=== PATIENT | male | born 1945 | race Caucasian/White ===

== ENCOUNTER 2017-07-24 13:19 | Emergency (ER) | payer MEDICARE, BC ==
[~2017-07-24 13:19] MED LIST: HYDROmorphone 2 MG/ML Syringe IM ONE
[2017-07-24] MEDS ORDERED: Cephalexin 500 MG Cap ONE (13:30)
--- NOTE | 2017-07-24 14:56 | EDM.PDOC ---
ED HPI GENERAL MEDICAL PROBLEM - General Chief Complaint: General Stated Complaint: PAIN Time Seen by Provider: 07/24/17 14:00 Source of Information: Reports: Patient History Limitations: Reports: No Limitations - History of Present Illness INITIAL COMMENTS - FREE TEXT/NARRATIVE: According to , who is his manager wound care. Pt has has chronic wounds on the legs for several years now. His has been doing dressing at Home for him. He has been on fentanyl 50mcg, vicodin , and oxycodone for it. He has been c/o worsening pain today. claims he is out of his hydrocodone, but he claims he has enough till wednesday. Pain, he describes is worse with touch. Also pain is sharp and shooting type. No fever or chills. There is swelling of the legs. No cough, wheezing. no increased drainage form the wound. No nausea or vomiting. wants his Blood sugar checked, as he does not get it checked at home. bilateral legs Pain Score (Numeric/FACES): 8 - Related Data Allergies Allergy/AdvReac Type Severity Reaction Status Date / Time lisinopril AdvReac Cannot Verified 07/24/17 14:52 Remember naproxen AdvReac Cannot Verified 07/24/17 14:52 Remember Home Meds: Home Meds metFORMIN HCl [Metformin HCl ER] 500 mg PO DAILY 12/18/13 [History] ED ROS GENERAL - Review of Systems Review Of Systems: See Below Constitutional: Denies: Fever, Chills, Weakness, Fatigue HEENT: Denies: Rhinitis, Throat Pain, Throat Swelling Respiratory: Denies: Shortness of Breath, Cough, Sputum Cardiovascular: Denies: Chest Pain, Lightheadedness GI/Abdominal: Denies: Abdominal Pain, Nausea, Vomiting : Denies: Dysuria, Flank Pain Musculoskeletal: Reports: Leg Pain, Foot Pain. Denies: Joint Pain, Joint Swelling Skin: Reports: Wound. Denies: Bruising, Pruritis, Rash Neurological: Denies: Dizziness, Headache, Seizure, Syncope ED EXAM, GENERAL - Physical Exam Exam: See Below Exam Limited By: No Limitations General Appearance: Alert, WD/WN, No Apparent Distress, Other (upset, does not want to answer questions. tell's me to ask my nurse she knows it all.) Eye Exam: Bilateral Eye: EOMI, PERRL Ears: Normal External Exam, Normal Canal, Hearing Grossly Normal, Normal TMs Nose: Normal Inspection, Normal Mucosa, No Blood Throat/Mouth: Normal Inspection, Normal Lips, Normal Teeth, Normal Gums, Normal Oropharynx, Normal Voice, No Airway Compromise Head: Atraumatic, Normocephalic Neck: Normal Inspection, Supple, Non-Tender, Full Range of Motion Respiratory/Chest: No Respiratory Distress, Lungs Clear, Normal Breath Sounds, No Accessory Muscle Use, Chest Non-Tender Cardiovascular: Normal Peripheral Pulses, Regular Rate, Rhythm, No Edema, No Gallop, No JVD, No Murmur, No Rub Neurological: Alert, Oriented, CN II-XII Intact Skin Exam: Warm, Intact, Other (Right lower extremity: the wound dressings were opened by me. Therre are 2 small less than 1 cm irregular wound over the medial aspect of the 2nd toe and 3rd toe lateral aspect. Also there is a large approximartely 8cm by 6cm irregular chronic wound over the medail aspect of the ankle. The wound is chronic with undermined edges. There is minimal discharge around the wound. There is swelling of the legs. Pt refused to have his left leg examined by me as it has been hurting.) Course - Vital Signs Text/Narrative:: Pt has chronic wounds of the feet and leg. The wound over the right foot has mild clear to yellow discharge.This looks like superficial skin infection. Also there is chronic swelling of the legs with lymphedema. his vitals are stable. I did order CBC and Blood sugar. His blood sugar is 106.CBC shows white count of 2.8 with normal differential The wounds were redressed with xeroform and telfa. Pt appears to have neuropathic pain, as even touching the skin on the leg hurts, and he gets shooting pain. He is on Fentanyl Oxycodone, Hydrocodone. But only take 100mg of gabapentin TID. His pain is neuropathic in nature and presentation. I am increasing his gabapentin to 300mng 3 times daily. Started him on Keflex 500mg 4 times daily. advised elevation of the legs and followup with Dr. KHAN on wednesday. I have recommended patient to be followed up by wound cre specialist too, as he has chronic non-healing wounds. Pt's says he does not wants to travel to see a specialist. Last Recorded V/S: Last Vital Signs Temp 99.9 F 07/24/17 14:59 Pulse 74 07/24/17 14:59 Resp BP 122/61 07/24/17 14:59 Pulse Ox 100 07/24/17 14:59 - Orders/Labs/Meds Orders: Active Orders 24 hr Category Date Time Status Blood Glucose Check, Bedside [RC] ONETIME Care 07/24/17 14:42 Active Labs: Laboratory Tests 07/24/17 07/24/17 Range/Units 14:11 14:40 WBC 2.9 L D (4.0-11.0) K/uL RBC 2.69 L (4.50-6.50) M/uL Hgb 10.0 L (13.0-18.0) g/dL Hct 28.5 L D (40.0-54.0) % MCV 106 H (76-96) fL MCH 37.2 H (27.0-32.0) pg MCHC 35.1 H (31.0-35.0) g/dL RDW 17.0 H (11.0-16.0) % Plt Count 82 L D (150-400) K/uL MPV 9.6 (6.0-10.0) fL Neut % (Auto) 51.5 (45.0-70.0) % Lymph % (Auto) 10.2 L (20.0-40.0) % [place] % (Auto) 31.6 H (3.0-10.0) % Eos % (Auto) 4.9 (1.0-5.0) % Baso % (Auto) 1.8 H (0.0-0.5) % Neut # (Auto) 1.47 L (2.00-7.50) K/uL Lymph # (Auto) 0.29 L (1.50-4.00) K/uL [place] # (Auto) 0.90 H (0.20-0.80) K/uL Eos # (Auto) 0.14 (0.04-0.40) K/uL Baso # (Auto) 0.05 (0.02-0.10) K/uL POC Glucose 106 (74-110) mg/dL Meds: Medications Discontinued Medications Generic Name Dose Route Start Last Admin Trade Name Freq PRN Reason Stop Dose Admin Hydromorphone HCl 2 mg 07/24/17 03:00 07/24/17 15:20 Dilaudid IM 07/24/17 03:01 2 mg ONETIME ONE Administration Departure - Departure Time of Disposition: 15:40 Disposition: Home, Self-Care 01 Condition: Good Clinical Impression: Chronic wound of extremity - Discharge Information Instructions: Venous Ulcer, Venous Stasis or Chronic Venous Insufficiency Forms: ED Department Discharge Additional Instructions: Increase the Gabapentin 300 mg 3 times a day. Keflex is to be taken 500mg 4 times a day. Be seen in the clinic on Wednesday for a home health referral and the wound referral. - Problem List & Annotations (1) Chronic wound of extremity SNOMED Code(s): 177364030 Code(s): [id number] - Status: Acute - Problem List Review Problem List Initiated/Reviewed/Updated: Yes - My Orders Last 24 Hours: My Active Orders 07/24/17 14:42 Blood Glucose Check, Bedside [RC] ONETIME - Assessment/Plan Last 24 Hours: My Active Orders 07/24/17 14:42 Blood Glucose Check, Bedside [RC] ONETIME Assessment:: Chronic leg wound with superficial infection Plan: Pt has chronic wounds of the feet and leg. The wound over the right foot has mild clear to yellow discharge.This looks like superficial skin infection. Also there is chronic swelling of the legs with lymphedema. his vitals are stable. I did order CBC and Blood sugar. His blood sugar is 106.CBC shows white count of 2.8 with normal differential The wounds were redressed with xeroform and telfa. Pt appears to have neuropathic pain, as even touching the skin on the leg hurts, and he gets shooting pain. He is on Fentanyl Oxycodone, Hydrocodone. But only take 100mg of gabapentin TID. His pain is neuropathic in nature and presentation. I am increasing his gabapentin to 300mng 3 times daily. Started him on Keflex 500mg 4 times daily. advised elevation of the legs and followup with Dr. KHAN on wednesday. I have recommended patient to be followed up by wound cre specialist too, as he has chronic non-healing wounds. Pt's says he does not wants to travel to see a specialist.
[2017-07-24 15:03] VITALS: BP 122/61
== END 2017-07-24 15:42 | disposition home or self-care (01) ==
LOC: LB.ED 13:19
DX: S90.934D Unspecified superficial injury of right lesser toe(s), subsequent encounter (principal); S90.911D Unspecified superficial injury of right ankle, subsequent encounter; Z88.8 Allergy status to other drugs, medicaments and biological substances; X58.XXXD Exposure to other specified factors, subsequent encounter; E11.9 Type 2 diabetes mellitus without complications
CPT/HCPCS: 36415; 82962; 83036; 85025; 96372; 99283; A9270; J1170

== ENCOUNTER 2017-08-03 08:36 | Inpatient (IN) | payer MEDICARE, BC ==
[2017-08-03] MEDS: Albuterol/Ipratropium 3.0-0.5 MG/3 ML Neb Soln NEB SCH ×3 (09:40→20:10)
--- NOTE | 2017-08-03 09:49 | EDM.PDOC ---
ED HPI GENERAL MEDICAL PROBLEM - General Chief Complaint: General Stated Complaint: pain Time Seen by Provider: 08/03/17 09:30 Source of Information: Reports: Family, RN History Limitations: Reports: Altered Mental Status, Physical Impairment - History of Present Illness INITIAL COMMENTS - FREE TEXT/NARRATIVE: 72 yr male presents via ambulance. Family states he has been sick for a few days and had confusion this am. states he didn't take any pain medicine yesterday. States temperature over the last couple days and long standing, chronic wounds to lower legs. Waiting to have care management specialist evaluation of wounds and then order for homecare services. Pt has been too weak to transport by personal vehicle to [place] for this appointment. Location: Reports: Lower Extremity, Left, Lower Extremity, Right Severity: Severe Improves with: Reports: Medication Worsens with: Reports: Movement Associated Symptoms: Reports: Confusion, Fever/Chills, Weakness Treatments FACILITIES COORDINATOR: Reports: Other Medication(s) bilateral legs Pain Score (Numeric/FACES): 8 - Related Data Allergies Allergy/AdvReac Type Severity Reaction Status Date / Time lisinopril AdvReac Cannot Verified 08/03/17 09:10 Remember naproxen AdvReac Cannot Verified 08/03/17 09:10 Remember Home Meds: Home Meds metFORMIN HCl [Metformin HCl ER] 500 mg PO DAILY 12/18/13 [History] Acetaminophen 325 mg PO ASDIRECTED PRN 08/03/17 [History] Acetaminophen/HYDROcodone [[place] 325-5 MG] 1 tab PO Q4H PRN 08/03/17 [History] Acetaminophen/oxyCODONE [Percocet 325-5 MG] 1 each PO Q4H PRN 08/03/17 [History] Clopidogrel [Plavix] 75 mg PO DAILY 08/03/17 [History] Docusate Sodium/Sennosides [Senna Plus] 1 each PO DAILY PRN 08/03/17 [History] Folic Acid 1 mg PO DAILY 08/03/17 [History] Gabapentin [Neurontin] 300 mg PO TID 08/03/17 [History] Ipratropium/Albuterol Sulfate [Iprat-Albut 0.5-3(2.5) MG/3 ML] 3 ml IH Q4H PRN 08/03/17 [History] Methotrexate 2.5 mg PO Q7D 08/03/17 [History] Metoprolol Succinate [Toprol XL] 25 mg PO DAILY 08/03/17 [History] Potassium Chloride 20 meq PO DAILY 08/03/17 [History] fentaNYL [Duragesic] 50 mcg TD ASDIRECTED 08/03/17 [History] traMADol [Ultram] 50 mg PO Q4H PRN 08/03/17 [History] traZODone 50 mg PO BEDTIME 08/03/17 [History] Past Medical History Cardiovascular History: Reports: Hypertension Dermatologic History: Reports: Decubitus Ulcer, Venous Stasis Dermatitis ED ROS GENERAL - Review of Systems Review Of Systems: See Below Constitutional: Reports: Fever, Chills, Weakness HEENT: Reports: Other (swelling to right eyelid) Respiratory: Reports: Shortness of Breath Cardiovascular: Reports: No Symptoms Endocrine: Reports: Other (hx diabetes) GI/Abdominal: Reports: No Symptoms Musculoskeletal: Reports: Other (hx of RA) Skin: Reports: Wound, Other (multiple chronic open areas to legs, bilaterally) Neurological: Reports: Confusion, Difficulty Walking, Weakness ED EXAM, GENERAL - Physical Exam Exam: See Below Exam Limited By: Altered Mental Status General Appearance: Alert, No Apparent Distress, Lethargic Eye Exam: Right Eye: Other (swelling to right upper eyelid) Throat/Mouth: Other (swelling to upper lip) Head: Atraumatic, Normocephalic Neck: Normal Inspection, Supple, Non-Tender Respiratory/Chest: No Respiratory Distress, Lungs Clear, Decreased Breath Sounds Cardiovascular: Regular Rate, Rhythm GI/Abdominal: Normal Bowel Sounds, Soft, Non-Tender Back Exam: Normal Inspection Extremities: Pedal Edema, Other (lower legs covered with dressings, dressing is dry and intact.) Neurological: Alert, Confused, Disoriented Skin Exam: Warm, Dry Lymphatic: No Adenopathy Course - Vital Signs Last Recorded V/S: Last Vital Signs Temp 101.0 F H 08/03/17 09:18 Pulse 68 08/03/17 15:47 Resp 20 08/03/17 09:18 BP 87/46 L 08/03/17 15:47 Pulse Ox 96 08/03/17 15:47 - Orders/Labs/Meds Orders: Active Orders 24 hr Category Date Time Status RT Aerosol Therapy [RC] ASDIRECTED Care 08/03/17 10:43 Active CULTURE BLOOD [BC] Stat Lab 08/03/17 11:10 Received CULTURE BLOOD [BC] Stat Lab 08/03/17 11:20 Received Albuterol/Ipratropium [DuoNeb 3.0-0.5 MG/3 ML] Med 08/03/17 10:43 Active 3 ml NEB Q4H PRN Azithromycin [Zithromax] 500 mg Med 08/03/17 11:30 Active Sodium Chloride 0.9% [Normal Saline] 250 ml IV Q24H Sodium Chloride 0.9% [Normal Saline] 1,000 ml Med 08/03/17 10:00 Active IV ASDIRECTED Medication Orders Acetaminophen (Tylenol) 325 mg PO ASDIRECTED PRN PRN Reason: Pain Albuterol/Ipratropium (Duoneb 3.0-0.5 Mg/3 Ml) 3 ml NEB Q4H PRN PRN Reason: Wheezing Stop: 08/03/17 18:00 Last Admin: 08/03/17 09:45 Dose: 3 ml Albuterol/Ipratropium (Duoneb 3.0-0.5 Mg/3 Ml) 3 ml NEB Q4H [facility] Last Admin: 08/03/17 09:40 Dose: 3 ml Clopidogrel Bisulfate (Plavix) 75 mg PO DAILY [facility] Fentanyl (Duragesic) 50 mcg TRDERM Q72H [facility] Folic Acid (Folic Acid) 1 mg PO DAILY [facility] Gabapentin (Neurontin) 300 mg PO TID [facility] Last Admin: 08/03/17 13:50 Dose: 300 mg Sodium Chloride (Normal Saline) 1,000 mls @ 100 mls/hr IV ASDIRECTED AZUL Stop: 08/03/17 18:00 Last Admin: 08/03/17 09:59 Dose: 100 mls/hr Azithromycin 500 mg/ Sodium (Chloride) 250 mls @ 250 mls/hr IV Q24H [facility] Last Admin: 08/03/17 12:21 Dose: 250 mls/hr Ceftriaxone Sodium 1 gm/ (Sodium Chloride) 50 mls @ 100 mls/hr IV Q24H [facility] Last Admin: 08/03/17 13:48 Dose: 100 mls/hr Metformin HCl (Glucophage Xr) 500 mg PO DAILY [facility] Metoprolol Succinate (Toprol Xl) 25 mg PO DAILY [facility] Nicotine (Habitrol) 21 mg TRDERM DAILY [facility] Oxycodone/Acetaminophen (Percocet 325-5 Mg) 1 tab PO Q4H PRN PRN Reason: Pain Last Admin: 08/03/17 12:30 Dose: 1 tab Potassium Chloride (Klor-Con M20) 20 meq PO DAILY AZUL Senna/Docusate Sodium (Senna Plus) 1 tab PO DAILY PRN PRN Reason: Constipation Tramadol HCl (Ultram) 50 mg PO Q4H PRN PRN Reason: Pain Trazodone HCl (Trazodone) 50 mg PO BEDTIME AZUL Labs: Laboratory Tests 08/03/17 08/03/17 08/03/17 Range/Units 09:30 09:35 09:35 WBC 5.7 D (4.0-11.0) K/uL RBC 2.97 L (4.50-6.50) M/uL Hgb 11.1 L (13.0-18.0) g/dL Hct 32.0 L (40.0-54.0) % MCV 108 H (76-96) fL MCH 37.4 H (27.0-32.0) pg MCHC 34.7 (31.0-35.0) g/dL RDW 17.8 H (11.0-16.0) % Plt Count 118 L D (150-400) K/uL MPV 10.0 (6.0-10.0) fL Neut % (Auto) 74.9 H (45.0-70.0) % Lymph % (Auto) 6.9 L (20.0-40.0) % [place] % (Auto) 17.1 H (3.0-10.0) % Eos % (Auto) 0.2 L (1.0-5.0) % Baso % (Auto) 0.9 H (0.0-0.5) % Neut # (Auto) 4.24 (2.00-7.50) K/uL Lymph # (Auto) 0.39 L (1.50-4.00) K/uL [place] # (Auto) 0.97 H (0.20-0.80) K/uL Eos # (Auto) 0.01 L (0.04-0.40) K/uL Baso # (Auto) 0.05 (0.02-0.10) K/uL Sodium 137 (136-145) mmol/L Potassium 4.4 (3.5-5.1) mmol/L Chloride 101 (98-107) mmol/L Carbon Dioxide 31.4 (21.0-32.0) mmol/L Anion Gap 9.0 (5.0-15.0) mmol/L BUN 20 (8-26) mg/dL Creatinine 1.29 D (0.70-1.30) mg/dL Est Cr Clr Drug Dosing TNP Estimated GFR (MDRD) 55 L (>60) MLS/MIN BUN/Creatinine Ratio 15.5 (6-25) Glucose 115 H (74-100) mg/dL Lactic Acid 2.25 H (0.90-1.70) mmol/L Calcium 10.5 H D (8.5-10.1) mg/dL Total Bilirubin 1.7 H D (0.0-1.0) mg/dL AST 138 H (15-37) U/L ALT 38 (12-78) U/L Alkaline Phosphatase 173 H (46-116) U/L Total Protein 6.8 (6.4-8.2) g/dL Albumin 2.3 L (3.4-5.0) g/dL Globulin 4.5 H (2.2-4.2) g/dL Albumin/Globulin Ratio 0.5 L (0.8-2.0) Meds: Medications Generic Name Dose Route Start Last Admin Trade Name Freq PRN Reason Stop Dose Admin Acetaminophen 325 mg 08/03/17 11:42 Tylenol PO ASDIRECTED PRN Pain Albuterol/Ipratropium 3 ml 08/03/17 10:43 08/03/17 09:45 Duoneb 3.0-0.5 Mg/3 Ml NEB 08/03/17 18:00 3 ml Q4H PRN Administration Wheezing Albuterol/Ipratropium 3 ml 08/03/17 11:45 08/03/17 09:40 Duoneb 3.0-0.5 Mg/3 Ml NEB 3 ml Q4H AZUL Administration Clopidogrel Bisulfate 75 mg 08/04/17 08:00 Plavix PO DAILY AZUL Fentanyl 50 mcg 08/05/17 08:00 Duragesic TRDERM Q72H AZUL Folic Acid 1 mg 08/04/17 08:00 Folic Acid PO DAILY AZUL Gabapentin 300 mg 08/03/17 14:00 08/03/17 13:50 Neurontin PO 300 mg TID AZUL Administration Sodium Chloride 1,000 mls @ 100 mls/hr 08/03/17 10:00 08/03/17 09:59 Normal Saline IV 08/03/17 18:00 100 mls/hr ASDIRECTED AZUL Administration Azithromycin 500 mg/ Sodium 250 mls @ 250 mls/hr 08/03/17 11:30 08/03/17 12: 21 Chloride IV 250 mls/hr Q24H AZUL Administration Ceftriaxone Sodium 1 gm/ 50 mls @ 100 mls/hr 08/03/17 12:00 08/03/17 13:48 Sodium Chloride IV 100 mls/hr Q24H AZUL Administration Metformin HCl 500 mg 08/04/17 08:00 Glucophage Xr PO DAILY [facility] Metoprolol Succinate 25 mg 08/04/17 08:00 Toprol Xl PO DAILY [facility] Nicotine 21 mg 08/04/17 08:00 Habitrol TRDERM DAILY [facility] Oxycodone/Acetaminophen 1 tab 08/03/17 12:54 08/03/17 12:30 Percocet 325-5 Mg PO 1 tab Q4H PRN Administration Pain Potassium Chloride 20 meq 08/04/17 08:00 Klor-Con M20 PO DAILY AZUL Senna/Docusate Sodium 1 tab 08/03/17 11:42 Senna Plus PO DAILY PRN Constipation Tramadol HCl 50 mg 08/03/17 11:42 Ultram PO Q4H PRN Pain Trazodone HCl 50 mg 08/03/17 20:00 Trazodone PO BEDTIME [facility] Discontinued Medications Generic Name Dose Route Start Last Admin Trade Name Freq PRN Reason Stop Dose Admin Hydromorphone HCl 2 mg 08/03/17 14:19 08/03/17 14:33 Dilaudid IVPUSH 08/03/17 14:20 2 mg ONETIME ONE Administration Oxycodone/Acetaminophen 1 tab 08/03/17 11:45 Percocet 325-5 Mg PO Q4H [facility] Departure - Departure Time of Disposition: 13:35 Disposition: Admitted As Inpatient 66 Clinical Impression: Pneumonia, Chronic wound of extremity - Discharge Information - Problem List & Annotations (1) Pneumonia SNOMED Code(s): 794577102 Code(s): J18.9 - PNEUMONIA, UNSPECIFIED ORGANISM Status: Acute Priority: High Current Visit: Yes Onset Date: 08/03/17 (2) Chronic wound of extremity SNOMED Code(s): 610051715 Code(s): VQC5913 - Status: Acute Priority: High Current Visit: Yes - Problem List Review Problem List Initiated/Reviewed/Updated: Yes - My Orders Last 24 Hours: My Active Orders 08/03/17 10:00 Sodium Chloride 0.9% [Normal Saline] 1,000 ml IV ASDIRECTED 08/03/17 10:43 RT Aerosol Therapy [RC] ASDIRECTED Albuterol/Ipratropium [DuoNeb 3.0-0.5 MG/3 ML] 3 ml NEB Q4H PRN 08/03/17 11:10 CULTURE BLOOD [BC] Stat 08/03/17 11:20 CULTURE BLOOD [BC] Stat 08/03/17 11:30 Azithromycin [Zithromax] 500 mg Sodium Chloride 0.9% [Normal Saline] 250 ml IV Q24H - Assessment/Plan Last 24 Hours: My Active Orders 08/03/17 10:00 Sodium Chloride 0.9% [Normal Saline] 1,000 ml IV ASDIRECTED 08/03/17 10:43 RT Aerosol Therapy [RC] ASDIRECTED Albuterol/Ipratropium [DuoNeb 3.0-0.5 MG/3 ML] 3 ml NEB Q4H PRN 08/03/17 11:10 CULTURE BLOOD [BC] Stat 08/03/17 11:20 CULTURE BLOOD [BC] Stat 08/03/17 11:30 Azithromycin [Zithromax] 500 mg Sodium Chloride 0.9% [Normal Saline] 250 ml IV Q24H Plan: 08-03-2017 Admit to inpatient with pneumonia. Azithromycin and Rocephin IV daily , IV fluids @ 100cc/hr, heart healthy diet as tolerated. Assist with bathroom privileges. Daily dressing change to chronic wounds to lower legs. Chest x- ray completed, will follow-up with CT for mass to right upper lobe.
[2017-08-03] MEDS ORDERED: Sodium Chloride 0.9% 1,000 ML IV SCH (10:00)
[2017-08-03] MEDS ORDERED: Albuterol/Ipratropium 3.0-0.5 MG/3 ML Neb Soln NEB PRN (10:43)
--- NOTE | 2017-08-03 11:09 | CR ---
DATE OF SERVICE: 08/03/2017 CLINICAL DATA: R/O pneumonia. AP PORTABLE CHEST Comparison is made to a prior exam dated 01/09/2016. Patient has taken a poor inspiration. The heart size is within normal limits. The aorta is calcified and ectatic. There is a 3.1 cm oval-shaped mass-like density within the right upper lung. It was not present on the prior exam. There is increased density in the left lung base with mild eventration of the left hemidiaphragm consistent with basilar atelectasis. Pneumonia should be considered. The exam is otherwise unchanged from the prior. IMPRESSION: 1. Right upper lobe mass as discussed above. Chest CT is recommended. 2. Increased density left lung base with eventration of left hemidiaphragm consistent with basilar atelectasis. Pneumonia should be considered. [id number] MTDD
[2017-08-03] MEDS ORDERED: Acetaminophen 325 MG Tab PO PRN (11:42)
[2017-08-03] MEDS ORDERED: Acetaminophen/oxyCODONE 325-5 MG Tab PO SCH (11:45)
[2017-08-03] MEDS: Azithromycin 500 MG in Sodium Chloride 0.9% 250 ML IV SCH (12:21)
[2017-08-03] MEDS: Acetaminophen/oxyCODONE 325-5 MG Tab PO PRN (12:30)
[2017-08-03] MEDS: cefTRIAXone 1 GM in Sodium Chloride 0.9% 50 ML IV SCH (13:48)
[2017-08-03] MEDS: Gabapentin 300 MG Cap PO SCH ×2 (13:50→20:11)
[2017-08-03] MEDS ORDERED: HYDROmorphone 2 MG/ML Syringe IVPUSH ONE (14:19)
--- NOTE | 2017-08-03 17:24 | PCM.SN ---
- Free Text/Narrative Note: 08-03-17 1700 Results of Chest x-ray reviewed with . Mass 3.1cm noted to right upper lobe, that wasn't present on previous exam. Will CT in am. Reviewed lab results. CBC normal. Pt has been taking Keflex at home for leg ulcers. states pt has been losing weight and more confused lately with weakness and unable to get out of bed without assist. Continue with IV fluids through the night, CBC and CMP in am. Continue with IV antibiotic for pneumonia. Blood cultures pending. UA negative for UTI. states pt hasn' t had an appointment with the icu specialist in [place], as he has been too weak to tolerate transportation. Daily dressing changes to lower legs with xeroform dressing to wounds and Kerlix.
[2017-08-03] MEDS: traZODone 50 MG Tab PO SCH (20:11)
[2017-08-04] MEDS: Albuterol/Ipratropium 3.0-0.5 MG/3 ML Neb Soln NEB SCH ×6 (00:01→20:25)
[2017-08-04] MEDS: Acetaminophen/oxyCODONE 325-5 MG Tab PO PRN ×3 (05:02→17:43)
[2017-08-04] MEDS: Metoprolol Succinate 25 MG Tab.ER PO SCH (07:27)
[2017-08-04] MEDS: Folic Acid 1 MG Tab PO SCH (07:28)
[2017-08-04] MEDS: traMADol 50 MG Tab PO PRN ×2 (07:28→20:23)
[2017-08-04] MEDS: metFORMIN 500 MG Tab.ER PO SCH (07:28)
[2017-08-04] MEDS: Potassium Chloride 20 MEQ Tab.ER PO SCH (07:28)
[2017-08-04] MEDS: Gabapentin 300 MG Cap PO SCH ×3 (07:28→20:25)
[2017-08-04] MEDS: Nicotine 21 MG/24 Hr Patch TRDERM SCH (07:28)
[2017-08-04] MEDS: Clopidogrel 75 MG Tab PO SCH (07:30)
[2017-08-04] MEDS ORDERED: metFORMIN 500 MG Tab PO SCH (08:00)
[2017-08-04] MEDS ORDERED: Non-Formulary Medication 1 Each (Metformin Hcl [Metformin Hcl Er] 500 MG) PO SCH (08:00)
[2017-08-04] MEDS ORDERED: Non-Formulary Medication 1 Each (Potassium Chloride [Potassium Chloride] 20 MEQ) PO SCH (08:00)
--- NOTE | 2017-08-04 09:45 | PCM.PN ---
- General Info Date of Service: 08/04/17 Admission Dx/Problem (Free Text): Pneumonia Subjective Update: 72 yr male with pneumonia. States he is feeling better and wants to go home. States he is upset his isn't here this am. States he rests better at home and can sit in his own chair at home and be more comfortable. Functional Status: Reports: Pain Controlled, Tolerating Diet - Review of Systems General: Reports: Weakness Pulmonary: Reports: Shortness of Breath Musculoskeletal: Reports: Leg Pain - Patient Data Vitals - Most Recent: Last Vital Signs Temp 98.7 F 08/04/17 07:53 Pulse 78 08/04/17 07:53 Resp 14 08/04/17 07:53 BP 102/91 H 08/04/17 07:53 Pulse Ox 92 L 08/04/17 07:53 Weight - Most Recent: 200 lb 12.8 oz I&O - Last 24 Hours: Intake & Output 08/03/17 08/04/17 08/04/17 22:59 06:59 14:59 Intake Total 1400 Output Total 500 Balance 900 Lab Results Last 24 Hours: Laboratory Results - last 24 hr 08/03/17 08/04/17 08/04/17 Range/Units 11:55 07:05 07:05 WBC 3.3 L D (4.0-11.0) K/uL RBC 2.35 L (4.50-6.50) M/uL Hgb 8.7 L D (13.0-18.0) g/dL Hct 25.1 L D (40.0-54.0) % MCV 107 H (76-96) fL MCH 37.0 H (27.0-32.0) pg MCHC 34.7 (31.0-35.0) g/dL RDW 17.4 H (11.0-16.0) % Plt Count 98 L (150-400) K/uL MPV 10.0 (6.0-10.0) fL Neut % (Auto) 65.1 (45.0-70.0) % Lymph % (Auto) 9.0 L (20.0-40.0) % Burnett % (Auto) 23.5 H (3.0-10.0) % Eos % (Auto) 1.5 (1.0-5.0) % Baso % (Auto) 0.9 H (0.0-0.5) % Neut # (Auto) 2.16 (2.00-7.50) K/uL Lymph # (Auto) 0.30 L (1.50-4.00) K/uL Burnett # (Auto) 0.78 (0.20-0.80) K/uL Eos # (Auto) 0.05 (0.04-0.40) K/uL Baso # (Auto) 0.03 (0.02-0.10) K/uL Sodium 137 (136-145) mmol/L Potassium 3.8 (3.5-5.1) mmol/L Chloride 103 (98-107) mmol/L Carbon Dioxide 28.3 (21.0-32.0) mmol/L Anion Gap 9.5 (5.0-15.0) mmol/L BUN 22 (8-26) mg/dL Creatinine 1.14 (0.70-1.30) mg/dL Est Cr Clr Drug Dosing 60.48 mL/min Estimated GFR (MDRD) > 60 (>60) MLS/MIN BUN/Creatinine Ratio 19.3 (6-25) Glucose 103 H (74-100) mg/dL Calcium 9.3 (8.5-10.1) mg/dL Total Bilirubin 0.8 D (0.0-1.0) mg/dL AST 121 H (15-37) U/L ALT 34 (12-78) U/L Alkaline Phosphatase 112 (46-116) U/L Total Protein 5.3 L (6.4-8.2) g/dL Albumin 1.7 L (3.4-5.0) g/dL Globulin 3.6 (2.2-4.2) g/dL Albumin/Globulin Ratio 0.5 L (0.8-2.0) Urine Color Yellow Urine Appearance Clear (CLEAR) Urine pH 6.0 (5.0-8.0) Ur Specific Theodore 1.020 (1.003-1.030) Urine Protein Negative (NEGATIVE) mg/dL Urine Glucose (UA) Negative (NEGATIVE) mg/dL Urine Ketones Negative (NEGATIVE) mg/dL Urine Occult Blood Negative (NEGATIVE) Urine Nitrite Negative (NEGATIVE) Urine Bilirubin Negative (NEGATIVE) Urine Urobilinogen 2.0 H (0.2-1.0) E.U./dL Ur Leukocyte Esterase Negative (NEGATIVE) Urine RBC Not seen /HPF Urine WBC Not seen /HPF Ur Squamous Epith Cells Occasional /HPF Urine Bacteria Not seen /HPF Med Orders - Current: Current Medications Acetaminophen (Tylenol) 325 mg PO ASDIRECTED PRN PRN Reason: Pain Albuterol/Ipratropium (Duoneb 3.0-0.5 Mg/3 Ml) 3 ml NEB Q4H [facility] Last Admin: 08/04/17 07:28 Dose: 3 ml Clopidogrel Bisulfate (Plavix) 75 mg PO DAILY [facility] Fentanyl (Duragesic) 50 mcg TRDERM Q72H [facility] Ferrous Sulfate (Ferrous Sulfate) 325 mg PO BIDMEALS [facility] Folic Acid (Folic Acid) 1 mg PO DAILY [facility] Last Admin: 08/04/17 07:28 Dose: 1 mg Gabapentin (Neurontin) 300 mg PO TID [facility] Last Admin: 08/04/17 07:28 Dose: 300 mg Azithromycin 500 mg/ Sodium (Chloride) 250 mls @ 250 mls/hr IV Q24H [facility] Last Admin: 08/03/17 12:21 Dose: 250 mls/hr Ceftriaxone Sodium 1 gm/ (Sodium Chloride) 50 mls @ 100 mls/hr IV Q24H [facility] Last Admin: 08/03/17 13:48 Dose: 100 mls/hr Metformin HCl (Glucophage Xr) 500 mg PO DAILY [facility] Last Admin: 08/04/17 07:28 Dose: 500 mg Metoprolol Succinate (Toprol Xl) 25 mg PO DAILY [facility] Last Admin: 08/04/17 07:27 Dose: 25 mg Nicotine (Habitrol) 21 mg TRDERM DAILY [facility] Last Admin: 08/04/17 07:28 Dose: 21 mg Oxycodone/Acetaminophen (Percocet 325-5 Mg) 1 tab PO Q4H PRN PRN Reason: Pain Last Admin: 08/04/17 08:44 Dose: 1 tab Potassium Chloride (Klor-Con M20) 20 meq PO DAILY [facility] Last Admin: 08/04/17 07:28 Dose: 20 meq Senna/Docusate Sodium (Senna Plus) 1 tab PO DAILY PRN PRN Reason: Constipation Tramadol HCl (Ultram) 50 mg PO Q4H PRN PRN Reason: Pain Last Admin: 08/04/17 07:28 Dose: 50 mg Trazodone HCl (Trazodone) 50 mg PO BEDTIME [facility] Last Admin: 08/03/17 20:11 Dose: 50 mg Discontinued Medications Albuterol/Ipratropium (Duoneb 3.0-0.5 Mg/3 Ml) 3 ml NEB Q4H PRN PRN Reason: Wheezing Stop: 08/03/17 18:00 Last Admin: 08/03/17 09:45 Dose: 3 ml Hydromorphone HCl (Dilaudid) 2 mg IVPUSH ONETIME ONE Stop: 08/03/17 14:20 Last Admin: 08/03/17 14:33 Dose: 2 mg Sodium Chloride (Normal Saline) 1,000 mls @ 100 mls/hr IV ASDIRECTED [facility] Stop: 08/03/17 18:00 Last Admin: 08/03/17 09:59 Dose: 100 mls/hr Oxycodone/Acetaminophen (Percocet 325-5 Mg) 1 tab PO Q4H [facility] - Exam Quality Assessment: Supplemental Oxygen, Skin Breakdown General: Alert, Lethargic HEENT: Mucous Membr. Moist/[place] Neck: Supple, Trachea Midline Lungs: Normal Respiratory Effort, Decreased Breath Sounds Cardiovascular: Regular Rate Skin: Warm, Dry Psy/Mental Status: Alert, Other (angry with not stopping in and wants to go home) - Problem List & Annotations (1) Pneumonia SNOMED Code(s): 212418898 Code(s): J18.9 - PNEUMONIA, UNSPECIFIED ORGANISM Status: Acute Priority: High Current Visit: Yes Onset Date: 08/03/17 (2) Chronic wound of extremity SNOMED Code(s): 542170524 Code(s): UQE5560 - Status: Acute Priority: High Current Visit: Yes - Problem List Review Problem List Initiated/Reviewed/Updated: Yes - My Orders Last 24 Hours: My Active Orders 08/03/17 11:42 Acetaminophen [Tylenol] 325 mg PO ASDIRECTED PRN Docusate Sodium/Sennosides [Senna Plus] 1 tab PO DAILY PRN traMADol [Ultram] 50 mg PO Q4H PRN 08/03/17 11:45 Albuterol/Ipratropium [DuoNeb 3.0-0.5 MG/3 ML] 3 ml NEB Q4H 08/03/17 11:47 Patient Status [ADT] Routine Height and Weight [RC] DAILY Oxygen Therapy [RC] PRN Up With Assistance [RC] ASDIRECTED Vital Signs [RC] Q4H 08/03/17 11:49 Intake and Output [RC] QSHIFT 08/03/17 12:00 cefTRIAXone [Rocephin] 1 gm Sodium Chloride 0.9% [Normal Saline] 50 ml IV Q24H 08/03/17 12:54 Acetaminophen/oxyCODONE [Percocet 325-5 MG] 1 tab PO Q4H PRN 08/03/17 14:00 Gabapentin [Neurontin] 300 mg PO TID 08/03/17 20:00 traZODone 50 mg PO BEDTIME 08/03/17 Dinner Heart Healthy Diet [DIET] 08/04/17 08:00 Chest wo Cont [CT] Routine Clopidogrel [Plavix] 75 mg PO DAILY Folic Acid 1 mg PO DAILY Metoprolol Succinate [Toprol XL] 25 mg PO DAILY Nicotine [Habitrol] 21 mg TRDERM DAILY Potassium Chloride [Klor-Con M20] 20 meq PO DAILY metFORMIN [Glucophage XR] 500 mg PO DAILY 08/04/17 12:00 Ferrous Sulfate 325 mg PO BIDMEALS 08/05/17 08:00 fentaNYL [Duragesic] 50 mcg TRDERM Q72H - Assessment Assessment:: Pneumonia: Improved Chronic wounds lower leg bilateral: Dressings dry and intact - Plan Plan:: Lab values reviewed. HGb low today after IV fluids @ 100cc/hr. Other lab values improved. Pt is eating breakfast. He has weakness and difficulty leaning forward for assessment today. I did notify the pt of mass to right upper lung. Discussed having CT of lung and pt in agreement with this. He would like to go home today. Will start Ferrous sulfate 325 mg PO bid today and continue with IV antibiotic and daily dressing change to extremities. Radiology staff report difficulty with CT machine today and site in truck out of facility. With rain last night, staff report safety concerns with having pt transported to CT for image today. Will hold on this for now and may need to complete outpatient next week. CT on hold for now. 08-04-17 12:00 Discussed options with pt and for CT. Pt wishes to have CT completed today.
[2017-08-04] MEDS ORDERED: Docusate Sodium 100 MG Cap PO SCH (11:00)
[2017-08-04] MEDS: Azithromycin 500 MG in Sodium Chloride 0.9% 250 ML IV SCH (11:49)
[2017-08-04] MEDS: Ferrous Sulfate 325 MG Tab PO SCH ×2 (11:54→17:43)
[2017-08-04] MEDS ORDERED: Morphine 2 MG/ML Syringe ONE (12:28)
[2017-08-04] MEDS: cefTRIAXone 1 GM in Sodium Chloride 0.9% 50 ML IV SCH (14:39)
[2017-08-04] MEDS ORDERED: Omeprazole 20 MG Cap.CR PO ONE (14:55)
[2017-08-04] MEDS ORDERED: HYDROmorphone 2 MG/ML Syringe IVPUSH ONE (15:10)
--- NOTE | 2017-08-04 17:12 | PCM.SN ---
- Free Text/Narrative Note: 08-04-[address] of chest completed today. preliminary reading reviewed with pt and . discussed mass to right lung. Pt would like to have a referral to oncology with possible biopsy and options for treatment. States they would prefer a consult in [place]. 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 State they want to work on getting his legs stronger and to go home. Will continue with IV antibiotic for pneumonia. PT consult for tomorrow to evaluate and treat. Pt and in agreement with plan. Pt and state pt has been so much stronger today and have notice an improvement with the swelling in his legs. State they have a hospital bed, TV, fridge and comfortable area for pt to be at home to keep legs elevated. States he would like to continue with Nicoderm patch and quit smoking.
[2017-08-04] MEDS: traZODone 50 MG Tab PO SCH (20:25)
[2017-08-05] MEDS: Albuterol/Ipratropium 3.0-0.5 MG/3 ML Neb Soln NEB SCH ×6 (04:27→20:17)
[2017-08-05] MEDS: Acetaminophen/oxyCODONE 325-5 MG Tab PO PRN ×3 (04:27→20:12)
[2017-08-05] MEDS: metFORMIN 500 MG Tab.ER PO SCH (07:37)
[2017-08-05] MEDS: Clopidogrel 75 MG Tab PO SCH (07:37)
[2017-08-05] MEDS: Ferrous Sulfate 325 MG Tab PO SCH ×2 (07:38→17:53)
[2017-08-05] MEDS: Potassium Chloride 20 MEQ Tab.ER PO SCH (07:38)
[2017-08-05] MEDS: Metoprolol Succinate 25 MG Tab.ER PO SCH (07:39)
[2017-08-05] MEDS: Folic Acid 1 MG Tab PO SCH (07:40)
[2017-08-05] MEDS: Nicotine 21 MG/24 Hr Patch TRDERM SCH (07:42)
[2017-08-05] MEDS: Omeprazole 20 MG Cap.CR PO SCH (07:42)
[2017-08-05] MEDS ORDERED: Sodium Chloride 0.9% 1,000 ML IV SCH ×2 (08:00→18:15)
[2017-08-05] MEDS: Gabapentin 300 MG Cap PO SCH ×3 (08:00→20:12)
[2017-08-05] MEDS ORDERED: fentaNYL 50 MCG/HR Transdermal Patch TRDERM SCH (08:00)
--- NOTE | 2017-08-05 08:50 | CT ---
DATE OF SERVICE: 08/04/17 CLINICAL DATA: mass right upper lung UNENHANCED CHEST CT: Multislice acquisition through the chest without IV contrast was performed. No priors. There is a bilobed pleural-based right upper lobe that correlates with the abnormality seen on the chest x-ray. It measures 4.4 cm in its maximum axial dimension. Its margins are lobulated and spiculated. There are atelectatic changes in the dependent portion of both lungs with areas of consolidation in both lower lobes. There are small bilateral pleural effusions. The lungs are otherwise clear. The heart size is within normal limits. There are coronary artery calcifications. There is a small pericardial effusion. There are enlarged lymph nodes within the superior mediastinum, adjacent to the aortic arch, and within the AP window. There is fluid adjacent to the liver consistent with ascites. IMPRESSION: 1. A 4.4 cm right upper lobe mass suspicious for malignancy. 2. Mediastinal adenopathy suspicious for metastatic adenopathy. 3. Small pleural effusions. Ascites. 4. Other findings as discussed above. [id number] MTDD
[2017-08-05] MEDS ORDERED: Morphine 2 MG/ML Syringe ONE (09:23)
[2017-08-05] MEDS: Morphine 2 MG/ML Syringe IVPUSH PRN ×2 (09:25→14:00)
[2017-08-05] MEDS: Azithromycin 500 MG in Sodium Chloride 0.9% 250 ML IV SCH (12:26)
[2017-08-05] MEDS: Tamsulosin 0.4 MG Cap.ER PO SCH (14:02)
[2017-08-05] MEDS: cefTRIAXone 1 GM in Sodium Chloride 0.9% 50 ML IV SCH (14:18)
--- NOTE | 2017-08-05 17:43 | PCM.PN ---
- General Info Date of Service: 08/05/17 Admission Dx/Problem (Free Text): Pneumonia Subjective Update: Pt states he is feeling stronger and would like to go home today. States he has been in bed for 6 days and his legs are weak. States he has been incontinent of urine and this is bothersome for him. States he is voiding in large amounts. Functional Status: Reports: Pain Controlled, Urinating - Review of Systems General: Reports: Weakness Pulmonary: Reports: Shortness of Breath Cardiovascular: Reports: No Symptoms Gastrointestinal: Reports: Decreased Appetite. Denies: Nausea, Vomiting Genitourinary: Reports: Frequency, Incontinence Musculoskeletal: Reports: Leg Pain - Patient Data Vitals - Most Recent: Last Vital Signs Temp 97.9 F 08/05/17 07:58 Pulse 80 08/05/17 12:00 Resp 18 08/05/17 12:00 BP 136/62 08/05/17 12:00 Pulse Ox 92 L 08/05/17 12:00 Weight - Most Recent: 200 lb 12.8 oz I&O - Last 24 Hours: Intake & Output 08/05/17 08/05/17 08/05/17 06:59 14:59 22:59 Intake Total 250 Output Total 800 Balance -550 Lab Results Last 24 Hours: Laboratory Results - last 24 hr 08/05/17 08/05/17 Range/Units 07:00 07:00 WBC 2.8 L (4.0-11.0) K/uL RBC 2.40 L (4.50-6.50) M/uL Hgb 9.0 L (13.0-18.0) g/dL Hct 25.9 L (40.0-54.0) % MCV 108 H (76-96) fL MCH 37.5 H (27.0-32.0) pg MCHC 34.7 (31.0-35.0) g/dL RDW 17.7 H (11.0-16.0) % Plt Count 103 L (150-400) K/uL MPV 9.8 (6.0-10.0) fL Neut % (Auto) 64.9 (45.0-70.0) % Lymph % (Auto) 8.6 L (20.0-40.0) % Clare % (Auto) 22.5 H (3.0-10.0) % Eos % (Auto) 2.9 (1.0-5.0) % Baso % (Auto) 1.1 H (0.0-0.5) % Neut # (Auto) 1.82 L (2.00-7.50) K/uL Lymph # (Auto) 0.24 L (1.50-4.00) K/uL Clare # (Auto) 0.63 (0.20-0.80) K/uL Eos # (Auto) 0.08 (0.04-0.40) K/uL Baso # (Auto) 0.03 (0.02-0.10) K/uL Sodium 138 (136-145) mmol/L Potassium 3.8 (3.5-5.1) mmol/L Chloride 106 (98-107) mmol/L Carbon Dioxide 26.0 (21.0-32.0) mmol/L Anion Gap 9.8 (5.0-15.0) mmol/L BUN 20 (8-26) mg/dL Creatinine 1.00 (0.70-1.30) mg/dL Est Cr Clr Drug Dosing 68.94 mL/min Estimated GFR (MDRD) > 60 (>60) MLS/MIN BUN/Creatinine Ratio 20.0 (6-25) Glucose 96 (74-100) mg/dL Calcium 9.1 (8.5-10.1) mg/dL Ken Results Last 24 Hours: Microbiology 08/03/17 11:20 Aerobic Blood Culture - Preliminary Blood NO GROWTH AFTER 2 DAYS Anaerobic Blood Culture - Preliminary NO GROWTH AFTER 2 DAYS 08/03/17 Unknown MRSA Culture - Final Nares, Unspecified NO MRSA ISOLATED Med Orders - Current: Current Medications Acetaminophen (Tylenol) 325 mg PO ASDIRECTED PRN PRN Reason: Pain Albuterol/Ipratropium (Duoneb 3.0-0.5 Mg/3 Ml) 3 ml NEB Q4H [facility] Last Admin: 08/05/17 15:06 Dose: 3 ml Clopidogrel Bisulfate (Plavix) 75 mg PO DAILY [facility] Last Admin: 08/05/17 07:37 Dose: 75 mg Fentanyl (Duragesic) 50 mcg TRDERM Q72H [facility] Last Admin: 08/05/17 09:11 Dose: 50 mcg Ferrous Sulfate (Ferrous Sulfate) 325 mg PO BIDMEALS [facility] Last Admin: 08/05/17 07:38 Dose: 325 mg Folic Acid (Folic Acid) 1 mg PO DAILY [facility] Last Admin: 08/05/17 07:40 Dose: 1 mg Gabapentin (Neurontin) 300 mg PO TID [facility] Last Admin: 08/05/17 15:06 Dose: 300 mg Azithromycin 500 mg/ Sodium (Chloride) 250 mls @ 250 mls/hr IV Q24H [facility] Last Admin: 08/05/17 12:26 Dose: 250 mls/hr Ceftriaxone Sodium 1 gm/ (Sodium Chloride) 50 mls @ 100 mls/hr IV Q24H [facility] Last Admin: 08/05/17 14:18 Dose: 100 mls/hr Sodium Chloride (Normal Saline) 1,000 mls @ 100 mls/hr IV ASDIRECTED [facility] Last Admin: 08/05/17 12:25 Dose: 100 mls/hr Metformin HCl (Glucophage Xr) 500 mg PO DAILY [facility] Last Admin: 08/05/17 07:37 Dose: 500 mg Metoprolol Succinate (Toprol Xl) 25 mg PO DAILY [facility] Last Admin: 08/05/17 07:39 Dose: 25 mg Morphine Sulfate (Morphine) 2 mg IVPUSH Q4H PRN PRN Reason: Pain Last Admin: 08/05/17 14:00 Dose: 2 mg Nicotine (Habitrol) 21 mg TRDERM DAILY [facility] Last Admin: 08/05/17 07:42 Dose: 21 mg Omeprazole (Omeprazole) 20 mg PO DAILY [facility] Last Admin: 08/05/17 07:42 Dose: 20 mg Oxycodone/Acetaminophen (Percocet 325-5 Mg) 1 tab PO Q4H PRN PRN Reason: Pain Last Admin: 08/05/17 12:47 Dose: 1 tab Potassium Chloride (Klor-Con M20) 20 meq PO DAILY [facility] Last Admin: 08/05/17 07:38 Dose: 20 meq Senna/Docusate Sodium (Senna Plus) 1 tab PO DAILY [facility] Last Admin: 08/05/17 07:38 Dose: 1 tab Tamsulosin HCl (Flomax) 0.4 mg PO PCBREAKFAST [facility] Last Admin: 08/05/17 14:02 Dose: 0.4 mg Tramadol HCl (Ultram) 50 mg PO Q4H PRN PRN Reason: Pain Last Admin: 09/20/17 20:23 Dose: 50 mg Trazodone HCl (Trazodone) 50 mg PO BEDTIME [facility] Last Admin: 08/04/17 20:25 Dose: 50 mg Discontinued Medications Albuterol/Ipratropium (Duoneb 3.0-0.5 Mg/3 Ml) 3 ml NEB Q4H PRN PRN Reason: Wheezing Stop: 08/03/17 18:00 Last Admin: 08/03/17 09:45 Dose: 3 ml Hydromorphone HCl (Dilaudid) 2 mg IVPUSH ONETIME ONE Stop: 08/03/17 14:20 Last Admin: 08/03/17 14:33 Dose: 2 mg Hydromorphone HCl (Dilaudid) 2 mg IVPUSH ONETIME ONE Stop: 08/04/17 15:11 Last Admin: 08/04/17 15:16 Dose: 2 mg Sodium Chloride (Normal Saline) 1,000 mls @ 100 mls/hr IV ASDIRECTED [facility] Stop: 08/03/17 18:00 Last Admin: 08/03/17 09:59 Dose: 100 mls/hr Morphine Sulfate (Morphine) Confirm Administered Dose 2 mg .ROUTE .STK-MED ONE Stop: 08/04/17 12:29 Last Admin: 08/04/17 20:39 Dose: Not Given Morphine Sulfate (Morphine) Confirm Administered Dose 2 mg .ROUTE .STK-MED ONE Stop: 08/05/17 09:24 Last Admin: 08/05/17 09:32 Dose: 2 mg Omeprazole (Omeprazole) 20 mg PO ONETIME ONE Stop: 08/04/17 14:56 Last Admin: 08/04/17 15:16 Dose: 20 mg Oxycodone/Acetaminophen (Percocet 325-5 Mg) 1 tab PO Q4H [facility] Last Admin: 08/05/17 15:34 Dose: Not Given Senna/Docusate Sodium (Senna Plus) 1 tab PO DAILY PRN PRN Reason: Constipation - Exam General: Alert, Oriented Neck: Supple Lungs: Normal Respiratory Effort, Decreased Breath Sounds Cardiovascular: Regular Rate GI/Abdominal Exam: Soft, Non-Tender, No Distention Extremities: Other (weakness lower extremities) Skin: Warm, Dry, Intact Wound/Incisions: Dressing Dry and Intact Neurological: No New Focal Deficit Psy/Mental Status: Alert, Normal Affect - Problem List & Annotations (1) Pneumonia SNOMED Code(s): 107521891 Code(s): J18.9 - PNEUMONIA, UNSPECIFIED ORGANISM Status: Acute Priority: High Current Visit: Yes Onset Date: 08/03/17 (2) Chronic wound of extremity SNOMED Code(s): 874862136 Code(s): BHK5080 - Status: Acute Priority: High Current Visit: Yes (3) Weakness of both lower extremities SNOMED Code(s): 8143839 Code(s): R29.898 - OT SYMPTOMS AND SIGNS INVOLVING THE MUSCULOSKELETAL SYSTEM Status: Acute Priority: High Current Visit: Yes - Problem List Review Problem List Initiated/Reviewed/Updated: Yes - My Orders Last 24 Hours: My Active Orders 08/05/17 08:00 PT Evaluation and Treatment [CONS] Routine Docusate Sodium/Sennosides [Senna Plus] 1 tab PO DAILY Omeprazole 20 mg PO DAILY Sodium Chloride 0.9% [Normal Saline] 1,000 ml IV ASDIRECTED fentaNYL [Duragesic] 50 mcg TRDERM Q72H 08/05/17 09:28 Morphine 2 mg IVPUSH Q4H PRN 08/05/17 13:15 Tamsulosin [Flomax] 0.4 mg PO PCBREAKFAST - Assessment Assessment:: Pneumonia: Improved Chronic wounds lower leg bilateral: Dressings dry and intact Bilateral lower leg weakness - Plan Plan:: 08-05-17 Lab values reviewed. HGb improved today, started ferrous sulfate. Other lab values improved. Pt is eating breakfast. He has weakness and difficulty leaning forward for assessment today. Continue with IV antibiotic and daily dressing change to extremities. Staff may premedicate with pain medication before dressing change. PT to evaluate and develop treatment plan today. Pt, and family in agreement with plan of care and want him to be stronger before discharge. 08-05-2017 1715 Pt sitting up in bed and states he had a good day. States he wishes he could have gone home, but would like to be stronger and he is willing to work with PT to regain his strength. Pt has been up to the bathroom to void with assist and states this is going better. Pt states he didn't eat lunch, but is planning on eating his supper. States PT was in the room working with him when lunch came and then didn't feel like eating after that. and son are with him and state comfort knowing pt is staying to regain strength.
[2017-08-05] MEDS: traZODone 50 MG Tab PO SCH (20:11)
[2017-08-05] MEDS: traMADol 50 MG Tab PO PRN (20:13)
[2017-08-06] MEDS: Albuterol/Ipratropium 3.0-0.5 MG/3 ML Neb Soln NEB SCH ×4 (01:59→11:50)
[2017-08-06] MEDS: Gabapentin 300 MG Cap PO SCH ×2 (09:17→14:36)
[2017-08-06] MEDS: Metoprolol Succinate 25 MG Tab.ER PO SCH (09:17)
[2017-08-06] MEDS: Acetaminophen/oxyCODONE 325-5 MG Tab PO PRN ×2 (09:17→14:36)
[2017-08-06] MEDS: Clopidogrel 75 MG Tab PO SCH (09:18)
[2017-08-06] MEDS: Potassium Chloride 20 MEQ Tab.ER PO SCH (09:18)
[2017-08-06] MEDS: Ferrous Sulfate 325 MG Tab PO SCH (09:19)
[2017-08-06] MEDS: Tamsulosin 0.4 MG Cap.ER PO SCH (09:19)
[2017-08-06] MEDS: Omeprazole 20 MG Cap.CR PO SCH (09:19)
[2017-08-06] MEDS: Nicotine 21 MG/24 Hr Patch TRDERM SCH (09:20)
[2017-08-06] MEDS: Folic Acid 1 MG Tab PO SCH (09:21)
[2017-08-06] MEDS: metFORMIN 500 MG Tab.ER PO SCH (09:22)
[2017-08-06] MEDS: Azithromycin 500 MG in Sodium Chloride 0.9% 250 ML IV SCH (11:50)
[2017-08-06] MEDS: cefTRIAXone 1 GM in Sodium Chloride 0.9% 50 ML IV SCH (12:36)
--- NOTE | 2017-08-06 14:54 | PCM.DCSUM1 ---
Discharge Summary - Hospital Course Free Text/Narrative:: 72 yr male admitted with pneumonia, chronic wounds to legs, and weakness to lower extremities. He has tolerated the antibiotic without adverse reactions and he is feeling much improved and stronger. He is ambulating to/from bathroom and sleeping better. He would like to stop smoking, so will send him home on Nicoderm patch. Anemia noted this admit, started ferrous sulfate in hospital bid and will continue at home. Pt complained of frequency of urination and difficulty emptying bladder, flomax started in hospital and will continue at home. Continue home medications. to give breakthrough pain medicine before dressing change and change dressing daily at home. Referral to pulmonology to follow-up on mass to right upper lung. RTC in 2 weeks to PCP, Dr Rosen for follow-up. - Discharge Data Discharge Date: 08/06/17 Discharge Disposition: Home, Self-Care 01 Condition: Good - Discharge Diagnosis/Problem(s) (1) Pneumonia SNOMED Code(s): 636234567 ICD Code: J18.9 - PNEUMONIA, UNSPECIFIED ORGANISM Status: Acute Priority : High Current Visit: Yes Onset Date: 08/03/17 (2) Chronic wound of extremity SNOMED Code(s): 884232159 ICD Code: [id number] - Status: Acute Priority: High Current Visit: Yes (3) Weakness of both lower extremities SNOMED Code(s): 1436844 ICD Code: R29.898 - [facility] SYMPTOMS AND SIGNS INVOLVING THE MUSCULOSKELETAL SYSTEM Status: Acute Priority: High Current Visit: Yes - Patient Summary/Data Consults: Consultations 08/05/17 08:00 PT Evaluation and Treatment [CONS] Routine Please Evaluate and Treat. PT Reason for Consult: weakness lower extremities This query below is only for informational purposes and is not editable. Admission Diagnosis/Problem: Pneumonia - Patient Instructions Diet: Regular Diet as Tolerated Activity: As Tolerated Activity, Other: Use walker to ambulate at home Driving: Do Not Drive Showering/Bathing: May Shower Wound/Incision Care: Change Dressing Daily Notify Provider of: Fever, Increased Pain, Swelling and Redness - Discharge Plan Prescriptions/Med Rec: Ferrous Sulfate 325 mg PO BIDMEALS #60 tablet Nicotine [Nicoderm CQ] 21 mg TD DAILY 30 Days #30 patch.td24 Tamsulosin [Tamsulosin 24 Hr] 0.4 mg PO DAILY #30 cap.er Home Medications: Home Meds metFORMIN HCl [Metformin HCl ER] 500 mg PO DAILY 12/18/13 [History] Acetaminophen 325 mg PO ASDIRECTED PRN 08/03/17 [History] Acetaminophen/HYDROcodone [[place] 325-5 MG] 1 tab PO Q4H PRN 08/03/17 [History] Acetaminophen/oxyCODONE [Percocet 325-5 MG] 1 each PO Q4H PRN 08/03/17 [History] Clopidogrel [Plavix] 75 mg PO DAILY 08/03/17 [History] Docusate Sodium/Sennosides [Senna Plus] 1 each PO DAILY PRN 08/03/17 [History] Folic Acid 1 mg PO DAILY 08/03/17 [History] Gabapentin [Neurontin] 300 mg PO TID 08/03/17 [History] Ipratropium/Albuterol Sulfate [Iprat-Albut 0.5-3(2.5) MG/3 ML] 3 ml IH Q4H PRN 08/03/17 [History] Methotrexate 2.5 mg PO Q7D 08/03/17 [History] Metoprolol Succinate [Toprol XL] 25 mg PO DAILY 08/03/17 [History] Potassium Chloride 20 meq PO DAILY 08/03/17 [History] fentaNYL [Duragesic] 50 mcg TD ASDIRECTED 08/03/17 [History] traMADol [Ultram] 50 mg PO Q4H PRN 08/03/17 [History] traZODone 50 mg PO BEDTIME 08/03/17 [History] Ferrous Sulfate 325 mg PO BIDMEALS #60 tablet 08/06/17 [Rx] Nicotine [Nicoderm CQ] 21 mg TD DAILY 30 Days #30 patch.td24 08/06/17 [Rx] Tamsulosin [Tamsulosin 24 Hr] 0.4 mg PO DAILY #30 cap.er 08/06/17 [Rx] Forms: ED Department Discharge Referrals: PCP,None [Ordering Only Provider] - - Discharge Summary/Plan Comment DC Time >30 min.: No Discharge Summary/Plan Comment: 08-06-17 72 yr male admitted with pneumonia, chronic wounds to legs, and weakness to lower extremities. He has tolerated the antibiotic without adverse reactions and he is feeling much improved and stronger. He is ambulating to/from bathroom and sleeping better. He would like to stop smoking, so will send him home on Nicoderm patch. Anemia noted this admit, started ferrous sulfate in hospital bid and will continue at home. Pt complained of frequency of urination and difficulty emptying bladder, flomax started in hospital and will continue at home. Continue home medications. to give breakthrough pain medicine before dressing change and change dressing daily at home. Referral to pulmonology to follow-up on mass to right upper lung. RTC in 2 weeks to PCP, Dr Rosen for follow-up. - Patient Data Vitals - Most Recent: Last Vital Signs Temp 97.4 F 08/06/17 04:00 Pulse 104 H 08/06/17 09:17 Resp 20 08/06/17 08:00 BP 125/72 08/06/17 09:17 Pulse Ox 98 08/06/17 08:00 Weight - Most Recent: 201 lb I&O - Last 24 hours: Intake & Output 08/05/17 08/06/17 08/06/17 22:59 06:59 14:59 Intake Total 250 Output Total 550 Balance -300 MATIAS Results - Last 24 hrs: Microbiology 08/03/17 11:20 Aerobic Blood Culture - Preliminary Blood NO GROWTH AFTER 3 DAYS Anaerobic Blood Culture - Preliminary NO GROWTH AFTER 3 DAYS Med Orders - Current: Current Medications Acetaminophen (Tylenol) 325 mg PO ASDIRECTED PRN PRN Reason: Pain Albuterol/Ipratropium (Duoneb 3.0-0.5 Mg/3 Ml) 3 ml NEB Q4H [facility] Last Admin: 08/06/17 11:50 Dose: Not Given Clopidogrel Bisulfate (Plavix) 75 mg PO DAILY [facility] Last Admin: 08/06/17 09:18 Dose: 75 mg Fentanyl (Duragesic) 50 mcg TRDERM Q72H [facility] Last Admin: 08/05/17 09:11 Dose: 50 mcg Ferrous Sulfate (Ferrous Sulfate) 325 mg PO BIDMEALS [facility] Last Admin: 08/06/17 09:19 Dose: 325 mg Folic Acid (Folic Acid) 1 mg PO DAILY [facility] Last Admin: 08/06/17 09:21 Dose: 1 mg Gabapentin (Neurontin) 300 mg PO TID [facility] Last Admin: 08/06/17 14:36 Dose: 300 mg Azithromycin 500 mg/ Sodium (Chloride) 250 mls @ 250 mls/hr IV Q24H [facility] Last Admin: 08/06/17 11:50 Dose: 250 mls/hr Ceftriaxone Sodium 1 gm/ (Sodium Chloride) 50 mls @ 100 mls/hr IV Q24H [facility] Last Admin: 08/06/17 12:36 Dose: 100 mls/hr Sodium Chloride (Normal Saline) 1,000 mls @ 50 mls/hr IV ASDIRECTED [facility] Metformin HCl (Glucophage Xr) 500 mg PO DAILY [facility] Last Admin: 08/06/17 09:22 Dose: 500 mg Metoprolol Succinate (Toprol Xl) 25 mg PO DAILY [facility] Last Admin: 08/06/17 09:17 Dose: 25 mg Morphine Sulfate (Morphine) 2 mg IVPUSH Q4H PRN PRN Reason: Pain Last Admin: 08/05/17 14:00 Dose: 2 mg Nicotine (Habitrol) 21 mg TRDERM DAILY [facility] Last Admin: 08/06/17 09:20 Dose: 21 mg Omeprazole (Omeprazole) 20 mg PO DAILY [facility] Last Admin: 08/06/17 09:19 Dose: 20 mg Oxycodone/Acetaminophen (Percocet 325-5 Mg) 1 tab PO Q4H PRN PRN Reason: Pain Last Admin: 08/06/17 14:36 Dose: 1 tab Potassium Chloride (Klor-Con M20) 20 meq PO DAILY [facility] Last Admin: 08/06/17 09:18 Dose: 20 meq Senna/Docusate Sodium (Senna Plus) 1 tab PO DAILY [facility] Last Admin: 08/06/17 09:17 Dose: 1 tab Tamsulosin HCl (Flomax) 0.4 mg PO PCBREAKFAST [facility] Last Admin: 08/06/17 09:19 Dose: 0.4 mg Tramadol HCl (Ultram) 50 mg PO Q4H PRN PRN Reason: Pain Last Admin: 08/05/17 20:13 Dose: 50 mg Trazodone HCl (Trazodone) 50 mg PO BEDTIME [facility] Last Admin: 08/05/17 20:11 Dose: 50 mg Discontinued Medications Albuterol/Ipratropium (Duoneb 3.0-0.5 Mg/3 Ml) 3 ml NEB Q4H PRN PRN Reason: Wheezing Stop: 08/03/17 18:00 Last Admin: 08/03/17 09:45 Dose: 3 ml Hydromorphone HCl (Dilaudid) 2 mg IVPUSH ONETIME ONE Stop: 08/03/17 14:20 Last Admin: 08/03/17 14:33 Dose: 2 mg Hydromorphone HCl (Dilaudid) 2 mg IVPUSH ONETIME ONE Stop: 08/04/17 15:11 Last Admin: 08/04/17 15:16 Dose: 2 mg Sodium Chloride (Normal Saline) 1,000 mls @ 100 mls/hr IV ASDIRECTED [facility] Stop: 08/03/17 18:00 Last Admin: 08/03/17 09:59 Dose: 100 mls/hr Sodium Chloride (Normal Saline) 1,000 mls @ 100 mls/hr IV ASDIRECTED [facility] Last Admin: 08/05/17 12:25 Dose: 100 mls/hr Morphine Sulfate (Morphine) Confirm Administered Dose 2 mg .ROUTE .STK-MED ONE Stop: 08/04/17 12:29 Last Admin: 08/04/17 20:39 Dose: Not Given Morphine Sulfate (Morphine) Confirm Administered Dose 2 mg .ROUTE .STK-MED ONE Stop: 08/05/17 09:24 Last Admin: 08/05/17 09:32 Dose: 2 mg Omeprazole (Omeprazole) 20 mg PO ONETIME ONE Stop: 08/04/17 14:56 Last Admin: 08/04/17 15:16 Dose: 20 mg Oxycodone/Acetaminophen (Percocet 325-5 Mg) 1 tab PO Q4H [facility] Last Admin: 08/05/17 15:34 Dose: Not Given Senna/Docusate Sodium (Senna Plus) 1 tab PO DAILY PRN PRN Reason: Constipation *Q Meaningful Use (DIS) - VTE *Q VTE Criteria *Q: - Stroke *Q Stroke Criteria *Q: - AMI *Q AMI Criteria *Q:
[2017-08-06 16:43] VITALS: BP 119/61
== END 2017-08-06 16:15 | disposition home or self-care (01) | DRG 194 ==
LOC: LB.ED 08:36 → UNDOADMIN 11:18 → LB.MS 11:18
PROVIDERS: ADMIT Nurse Practitioner Family; ATTEND Nurse Practitioner Family
DX: J18.9 Pneumonia, unspecified organism (principal); L97.929 Non-pressure chronic ulcer of unspecified part of left lower leg with unspecified severity; L97.919 Non-pressure chronic ulcer of unspecified part of right lower leg with unspecified severity; I10 Essential (primary) hypertension; R91.8 Other nonspecific abnormal finding of lung field; E11.622 Type 2 diabetes mellitus with other skin ulcer; Z79.84 Long term (current) use of oral hypoglycemic drugs; F17.210 Nicotine dependence, cigarettes, uncomplicated; R29.898 Other symptoms and signs involving the musculoskeletal system; D64.9 Anemia, unspecified; R35.0 Frequency of micturition; Z88.8 Allergy status to other drugs, medicaments and biological substances
CPT/HCPCS: 36415; 71010; 80053; 83605; 85025; 87040; 99285; A0425; A0429; J7040; J7620 ×2; 71250; 80048; 81001; 87070; 96365; 97163-GP; 97530-GP; A9270-GY; J0456; J0696; J1170; J2270; J7050

== ENCOUNTER 2017-08-17 14:04 | Inpatient (IN) | payer MEDICARE, BC ==
[2017-08-17] MEDS ORDERED: Vancomycin 1 GM SDV IV SCH (17:00)
[2017-08-17] MEDS ORDERED: Pneumococcal Polyvalent-23 Vaccine 0.5 ML SDV IM ONE (18:08)
[2017-08-17] MEDS: Piperacillin/Tazobactam 3.375 GM in Sodium Chloride 0.9% 100 ML IV SCH (18:57)
[2017-08-17] MEDS ORDERED: Sodium Chloride 0.9% 1,000 ML IV SCH (19:00)
[2017-08-17] MEDS ORDERED: Insulin Aspart 100 Units/ML 3 ML Pen SUBCUT SCH (20:00)
--- NOTE | 2017-08-17 20:18 | CR ---
DATE OF SERVICE: 08/17/17 CLINICAL DATA: Fever, unspecified AP AND LATERAL CHEST Comparison is made to a prior exam dated 08/03/17. The heart size is stable. The mass in the right upper lobe is again seen. It does appear increased in size from the prior exam. There is also soft tissue fullness in the superior mediastinum on today's exam that was not present on the prior consistent with a mass or adenopathy. There is a healed rib fracture on the left with adjacent pleural thickening. The exam is otherwise unchanged from the prior. [id number] [facility]
[2017-08-17] MEDS: VANCOMYCIN IV SCH ×3 (20:28)
[2017-08-17] MEDS: SODIUM CHLORIDE 0.9% IV SCH ×3 (20:28)
[2017-08-17] MEDS: Nicotine 21 MG/24 Hr Patch TRDERM SCH (20:46)
[2017-08-17] MEDS: traZODone 50 MG Tab PO SCH (20:47)
[2017-08-17] MEDS: Gabapentin 300 MG Cap PO SCH (20:47)
[2017-08-17] MEDS: Acetaminophen 325 MG Tab PO PRN (20:51)
[2017-08-17] MEDS: Acetaminophen/oxyCODONE 325-5 MG Tab PO PRN (20:52)
[2017-08-17] MEDS: Albuterol/Ipratropium 3.0-0.5 MG/3 ML Neb Soln INH SCH (21:12)
[2017-08-18] MEDS: Piperacillin/Tazobactam 3.375 GM in Sodium Chloride 0.9% 100 ML IV SCH ×4 (00:23→17:39)
[2017-08-18] MEDS: Acetaminophen/oxyCODONE 325-5 MG Tab PO PRN ×4 (01:49→21:36)
--- NOTE | 2017-08-18 06:55 | HP ---
CHIEF COMPLAINT: Fevers, weakness, encephalopathy, lower wound drainage. PAST MEDICAL HISTORY: 1. Rheumatoid arthritis, on methotrexate. 2. Chronic lower extremity ulcers. 3. Hypertension. 4. Diabetes mellitus type 2. 5. Neuropathic leg pain. 6. Chronic obstructive pulmonary disease. 7. Sleep disturbance. 8. Chronic pain syndrome. 9. Gastroesophageal reflux disease. 10.Right upper lobe mass found 08/01/2017, workup in progress. HISTORY OF THE PRESENT ILLNESS: A 72-year-old gentleman who was recently admitted to the hospital on 08/01/2017 for pneumonia, fevers, confusion. The patient was treated with Rocephin and azithromycin. During that hospital visit, right upper lobe mass was found. CT scan showed a spiculated mass 4 cm right upper lobe. There are no other infiltrates noted. The patient has been on methotrexate 20 mg weekly for rheumatoid arthritis. He does have chronic lower extremity ulcers which have been draining clear fluid. changes these daily. He states he has been having more swelling in lower extremities. There has been more drainage from the wounds but nothing purulent. He denies any urinary symptoms. No cough, sputum production, shortness of breath. He does feel very weak. He is not able to ambulate around at home. His has noted some confusion and fevers up to 101, starting last Wednesday. While in the hospital earlier in July, he had a wound culture done which was MRSA negative. Blood cultures were negative at that time. His white count on admission was 5.7, and upon discharge was 2.7. ALLERGIES: LISINOPRIL AND NAPROSYN. CURRENT MEDICATIONS: Please see med rec. FAMILY HISTORY: Mother with cancer, father with heart disease. SOCIAL HISTORY: He is current smoker, . Alcohol occasionally. REVIEW OF SYSTEMS: A 12-point review of systems is negative other than above. PHYSICAL EXAMINATION: GENERAL: A pleasant gentleman sitting in a wheelchair. Responds to my voice. VITAL SIGNS: Blood pressure 101/81. Pulse is 77, respirations 20, temp is 97.9, O2 sats are 100% on room air. NEUROLOGIC: The patient is alert. He is oriented to person but not place or time. He states it is 1972. He does know his date of , cannot tell me the president. HEENT: Exam is negative. Does have some healing sores on his upper and lower lips, but I do not see any mucositis. NECK: He has no adenopathy in the neck. LUNGS: Clear to auscultation although decreased breath sounds bilaterally but no wheezes or rales. CARDIAC: Regular rate and rhythm. I do not hear any gallop or rub or murmur. EXTREMITIES: He has got woody edema in the lower extremities bilaterally. The dressings were removed from his wounds in lower extremities, and ulcer bases look quite clear. He is draining a clear fluid. There were some chronic erythematous changes but nothing acute. It is not really warm to the touch. I could not palpate a posterior tibial or dorsal pedis pulse but there were no ischemic changes in the toes that I could tell. ABDOMEN: Benign without organomegaly or mass. EXAM: Deferred. NEUROLOGIC: As above. Otherwise nonfocal. LABORATORY DATA: Urinalysis is negative. CBC reveals a white count of 2.7, hemoglobin 9.2, MCV of 108, platelet count of 86,000. Platelet count upon discharge was 118 earlier this last month. Comprehensive metabolic panel reveals minimally elevated AST at 68, alkaline phosphatase is 165, albumin is 2.1. Calcium 10.7, blood sugars 116. Sodium 133, potassium 3.3, chloride 99, bicarb 29. Creatinine 1.22. Chest x-ray, PA and lateral, I see the right upper lobe mass which does appear to be larger than previous x-ray. I do not see any infiltrate or pleural effusion. IMPRESSION: 1. Fever, encephalopathy rule out sepsis. The patient will be admitted to the hospital. Blood cultures done in the clinic. Because of his lower extremity wounds, we will place him on vancomycin and Zosyn and also his diabetes. We will await wound cultures and blood cultures. I do not see any pulmonary source of his fever, and his urine is clear. No abdominal pain. His other concern is of his leukopenia and thrombocytopenia which may be related to sepsis, but also question whether or not this could be from his methotrexate. We will stop his methotrexate currently. 2. Chronic pain syndrome. Continue his current medications. 3. Mild dehydration. Creatinine mildly elevated along with the calcium elevation, most likely dehydration. IV fluids and follow, recheck in the morning. 4. Right upper lobe pulmonary mass. Masses spiculated by CT scan. I do not see any evidence of a cavitary lesion. I think this will need to be biopsied and apparently has set up for appointment in August. If patient's encephalopathy does not improve with hydration and resolve of his fevers, we may need to consider a CT of the head to rule out mets. 5. Low albumin, maybe related to infection but also concerned about malnutrition. 6. Macrocytosis with leukopenia and thrombocytopenia. Check B12 level but maybe related to methotrexate. 7. Chronic pain syndrome. Due to his mild encephalopathy, we will decrease his fentanyl patch to 25 mcg and follow. 8. Diabetes mellitus. Due to mild increase in his creatinine, we will hold metformin currently, just do fingerstick blood sugars q.i.d. with sliding scale insulin. 9. DVT prophylaxis. We will do SCDs although with his ulcerations, this might be difficult. I would hold on Lovenox and heparin due to his thrombocytopenia, and we will recheck this in the morning. 10.Encephalopathy, maybe related to his fever and possible sepsis but also as above, may need to do head CT if this is not clear with resolution of his fever. The patient will be an inpatient admission. Code status is full which was discussed with both he and his . BETHEL/NORM
[2017-08-18] MEDS: Omeprazole 20 MG Cap.CR PO SCH (06:59)
[2017-08-18] MEDS ORDERED: Piperacillin/Tazobactam 3.375 GM in Sodium Chloride 0.9% 100 ML IV SCH ×2 (07:45→08:00)
[2017-08-18] MEDS ORDERED: fentaNYL 25 MCG/HR Transdermal Patch TRDERM SCH (08:00)
[2017-08-18] MEDS: Folic Acid 1 MG Tab PO SCH (08:02)
[2017-08-18] MEDS: Gabapentin 300 MG Cap PO SCH ×3 (08:02→20:19)
[2017-08-18] MEDS: Potassium Chloride 20 MEQ Tab.ER PO SCH (08:02)
[2017-08-18] MEDS: Tamsulosin 0.4 MG Cap.ER PO SCH (08:02)
[2017-08-18] MEDS: Ferrous Sulfate 325 MG Tab PO SCH ×2 (08:03→17:39)
[2017-08-18] MEDS: Metoprolol Succinate 25 MG Tab.ER PO SCH (08:03)
[2017-08-18] MEDS: Clopidogrel 75 MG Tab PO SCH (08:04)
[2017-08-18] MEDS: Albuterol/Ipratropium 3.0-0.5 MG/3 ML Neb Soln INH SCH ×4 (08:06→20:26)
[2017-08-18] MEDS: Insulin Aspart 100 Units/ML 3 ML Pen SUBCUT SCH ×3 (08:40→17:39)
[2017-08-18] MEDS: VANCOMYCIN IV SCH ×9 (08:53→20:13)
[2017-08-18] MEDS: SODIUM CHLORIDE 0.9% IV SCH ×9 (08:53→20:13)
--- NOTE | 2017-08-18 09:17 | PN ---
DATE OF VISIT: SUBJECTIVE: The patient states he feels better. His legs are less painful this morning. He denies any cough or sputum production. No sore throat, odynophagia, or dysphagia. No abdominal pain, diarrhea, nausea, vomiting. No urinary symptoms. He had an uneventful night, did have a fever up to 101 from 9 o'clock until approximately 2 a.m., which was treated with Tylenol. He did become more confused during that time, but now has been afebrile. The patient did not become tachycardic, Blood pressure remains stable. The patient states he has had the lower extremity ulcers for at least 3 years and thinks that he started the methotrexate about the same time as the ulcer started. There has not been any significant travel history. No one else has been sick at home. OBJECTIVE: VITAL SIGNS: Blood pressure 115/72, pulse is 70 and regular, respirations are 16, temperature was 98.1, pulse oximetry was 94% on room air. GENERAL: The patient is alert. He is oriented to person, place, and knows the month of August but not what day and is not oriented to year. He cannot name the President. NEUROLOGIC: Cranial nerves III through XII are intact. Visual ontiveros are intact to confrontation. Strength is normal in the upper extremity. He has 4+/5 strength that is symmetric in the lower extremities. Speech is normal. HEENT: Pharynx, there is no mucositis. He does have some healing ulcers on his lips that are not bleeding. Tongue is dry, but no ulceration. NECK: No adenopathy in the neck. LUNGS: Clear without wheezes, rales, or rhonchi. CARDIAC: Exam reveals a regular rate and rhythm without gallop or rub rather distant heart tones. EXTREMITIES: Lower extremities, 1 to 2+ edema. His bandages were not removed, but toes were seen with good capillary refill. ABDOMEN: Reveals normoactive bowel sounds. Soft and nontender. I do not feel any masses. : Deferred. LABORATORY DATA: From today is pending. IMPRESSION AND PLAN: 1. Presumed sepsis. Plan: The only apparent source currently is his lower extremities. His chest x-ray does not show any new infiltrate, although his right upper lobe mass appears to be enlarging. We will continue on vancomycin and Zosyn. Culture wounds. We will await blood culture results and deescalate antibiotics as able. 2. Acute encephalopathy. The patient's mental status is improved this morning over yesterday, although I am not quite sure what his baseline is. We will discuss with his when she comes in this morning. If the patient is still encephalopathic after 24- 36 hours, we will proceed with head CT. 3. Lower extremity ulcers. Awaiting wound culture. Etiology of his ulcers are unclear since he has had this for 3 years, questionable whether or not these could be related to methotrexate use. In any event, we will stop his methotrexate, continue dressing changes, await cultures. 4. Diabetes mellitus. Blood sugars have been under reasonable control. Continue to hold his metformin until creatinine known. Sliding scale insulin as needed. 5. Right upper lobe mass. This appears to be enlarging by his recent chest x-ray. Very concerning for malignancy. At this point in time, the patient is not well enough to have a needle biopsy, which I think is the correct approach to biopsy. The lesion is very peripheral. 6. Chronic obstructive pulmonary disease, currently stable. Continue with p.r.n. nebs. 7. Pancytopenia. This may be related to his sepsis or also in combination with his methotrexate, which is on hold. I did add a B12 level on to lab from yesterday to ensure that this is normal. We will follow his white count and platelet count. Hemoglobin appears to be stable. We will check a stool Hemoccult to make sure no evidence of GI bleeding, which I doubt. 8. Deep vein thrombosis prophylaxis. Due to patient's thrombocytopenia we will hold off on any heparin or Lovenox. SCDs are not an option due to his lower extremity ulcers and pain. Up in chair as soon as possible and ambulation as soon as possible. BETHEL/NORM /[id number]
[2017-08-18] MEDS: Nicotine 21 MG/24 Hr Patch TRDERM SCH (20:18)
[2017-08-18] MEDS: traZODone 50 MG Tab PO SCH (20:19)
[2017-08-18] MEDS: Acetaminophen 325 MG Tab PO PRN (21:38)
[2017-08-19] MEDS: Sodium Chloride 0.9% 1,000 ML IV SCH (00:46)
[2017-08-19] MEDS: Piperacillin/Tazobactam 3.375 GM in Sodium Chloride 0.9% 100 ML IV SCH ×4 (00:51→18:08)
[2017-08-19] MEDS: Acetaminophen/oxyCODONE 325-5 MG Tab PO PRN ×4 (04:34→22:45)
[2017-08-19] MEDS: Omeprazole 20 MG Cap.CR PO SCH (06:47)
[2017-08-19] MEDS: Folic Acid 1 MG Tab PO SCH (08:16)
[2017-08-19] MEDS: Metoprolol Succinate 25 MG Tab.ER PO SCH (08:16)
[2017-08-19] MEDS: Ferrous Sulfate 325 MG Tab PO SCH ×2 (08:16→17:15)
[2017-08-19] MEDS: Potassium Chloride 20 MEQ Tab.ER PO SCH (08:17)
[2017-08-19] MEDS: Insulin Aspart 100 Units/ML 3 ML Pen SUBCUT SCH ×3 (08:17→17:04)
[2017-08-19] MEDS: Tamsulosin 0.4 MG Cap.ER PO SCH (08:17)
[2017-08-19] MEDS: Albuterol/Ipratropium 3.0-0.5 MG/3 ML Neb Soln INH SCH ×4 (08:17→19:45)
[2017-08-19] MEDS: Gabapentin 300 MG Cap PO SCH ×3 (08:17→19:45)
[2017-08-19] MEDS: Clopidogrel 75 MG Tab PO SCH (08:17)
[2017-08-19] MEDS: SODIUM CHLORIDE 0.9% IV SCH ×3 (11:48)
[2017-08-19] MEDS: VANCOMYCIN IV SCH ×3 (11:48)
--- NOTE | 2017-08-19 18:01 | PN ---
DATE OF VISIT: 08/19/2017 SUBJECTIVE: The patient is seen today on routine rounds. The patient was sitting up in a chair reading the paper when I came by to see him. He states he had a good night. Feels hungry this morning. No cough, sputum production, shortness of breath. No abdominal pain. Diarrhea. His legs actually feel better with less pain. He really does not have any other complaints. OBJECTIVE: GENERAL: A pleasant gentleman, reading a newspaper. No apparent distress. He is alert and oriented x3. He recalls president. VITAL SIGNS: Blood pressure is 100/60, pulse of 86, temp is 98.4, O2 saturation is 95% on room air. HEENT: No mucositis, otherwise unremarkable. LUNGS: Clear to auscultation. No wheezes, rales, or rhonchi. CARDIAC: Exam reveals regular rate and rhythm. Non tachycardic without gallop or rub. ABDOMEN: Normoactive bowel sounds. Soft and nontender. EXTREMITIES: Lower extremities, we did remove his dressings. He does have extensive ulcerations in both lower extremities, right greater than left, but all with good granulation tissue, less red than when I saw him in clinic. Good capillary refill at the toes. Although, I could not feel a dorsal pedis pulse. Swelling is also down. NEUROLOGIC: Mental status is above. Strength is normal in both upper and lower extremities. Cranial nerves III through XII are intact. LABORATORY DATA: White count is 2.3. Hemoglobin 8.8, platelet count 51,000. Sodium 137, potassium 4.2, chloride 104, CO2 27, BUN 20, creatinine 1.58. Urine culture returned showing Enterobacter cloacae, which was sensitive to Zosyn. Wound culture is still pending. Vancomycin trough was 20 and this will be held. IMPRESSION: 1. Presumed sepsis. Plan, blood cultures still remain negative. He did grow out Enterobacter cloacae, although colonies were only [id number] in his urine. This is being covered by the Zosyn. Still awaiting wound cultures. Blood cultures have been negative. He did spike a fever last night. Although, blood cultures were not done. I informed nursing to repeat blood cultures if temp goes above 101. 2. Acute encephalopathy. The patient's mental status improved this morning. Neurologic exam is nonfocal. Suspect that this is most likely due to his fever. We will continue to follow. B12 is still pending. 3. Pancytopenia. Plan, platelet count and white count continued to drift down. He is being held on his methotrexate. Will continue to follow. Recheck in the morning. No evidence of any bleeding. 4. Lower extremity ulcers awaiting wound cultures. Ulcers actually look better. He has a truly venous insufficiency ulcers. 5. Diabetes mellitus. Blood sugars under good control. 6. Right upper lobe mass. The patient is not in any condition to have his biopsy currently, but we will see if he can get a biopsy set up for the next two weeks. I think he just needed CT guided biopsy for diagnosis. 7. Chronic obstructive pulmonary disease, currently stable. Continue p.r.n. nebs. 8. Deep venous thrombosis prophylaxis. Hold with thrombocytopenia SCDs are not able to be put on due to his lower extremity ulcers. BETHEL/NORM /[id number]
[2017-08-19] MEDS: Acetaminophen 325 MG Tab PO PRN (18:54)
[2017-08-19] MEDS: traZODone 50 MG Tab PO SCH (19:45)
[2017-08-19] MEDS: Nicotine 21 MG/24 Hr Patch TRDERM SCH (20:08)
[2017-08-20] MEDS: Piperacillin/Tazobactam 3.375 GM in Sodium Chloride 0.9% 100 ML IV SCH ×4 (00:23→17:43)
[2017-08-20] MEDS: Sodium Chloride 0.9% 1,000 ML IV SCH (00:34)
[2017-08-20] MEDS: Acetaminophen/oxyCODONE 325-5 MG Tab PO PRN ×4 (02:36→21:30)
[2017-08-20] MEDS: Omeprazole 20 MG Cap.CR PO SCH (06:02)
[2017-08-20] MEDS: Gabapentin 300 MG Cap PO SCH ×5 (07:45→22:45)
[2017-08-20] MEDS: Ferrous Sulfate 325 MG Tab PO SCH ×2 (07:45→20:02)
[2017-08-20] MEDS: Metoprolol Succinate 25 MG Tab.ER PO SCH (07:45)
[2017-08-20] MEDS: Folic Acid 1 MG Tab PO SCH (07:45)
[2017-08-20] MEDS: Albuterol/Ipratropium 3.0-0.5 MG/3 ML Neb Soln INH SCH ×4 (07:53→22:45)
[2017-08-20] MEDS: Insulin Aspart 100 Units/ML 3 ML Pen SUBCUT SCH ×3 (07:54→17:18)
[2017-08-20] MEDS: Tamsulosin 0.4 MG Cap.ER PO SCH (07:55)
[2017-08-20] MEDS: Clopidogrel 75 MG Tab PO SCH (09:23)
--- NOTE | 2017-08-20 09:31 | PN ---
DATE OF VISIT: 08/20/2017 SUBJECTIVE: The patient lying in bed, easily arousable. He is very cantankerous this morning, but he cannot tell me why. He states his pain is controlled with his lower extremities, although with any movement or touching of his lower extremity has a lot of discomfort. He denies having any headache. No neurologic symptoms such as weakness or numbness. No double vision, trouble swallowing. He denies any cough, sputum production. He states his breathing is "normal." He denies any abdominal pain, nausea, vomiting, diarrhea, constipation. His appetite is poor this morning. No urinary difficulties. He wants to go home and thinks that his is out "gallivanting" while he is here in the hospital. OBJECTIVE: VITAL SIGNS: Temp spike last night at 7 o'clock to max of 101.5. Most recent temp is 99.3 at 4 this morning. Blood pressure is 99/44, but this was at 8 o'clock last night. Pulse 77, respirations 16, O2 sats 95% on room air. NEUROLOGIC: The patient's speech is normal. Cranial nerves III through XII are intact. He is able to move his toes bilaterally, but touching his legs cause a lot of discomfort, so strength could not be tested. Strength in the upper extremities is normal bilaterally. No mucositis. Lip lesions are healing. NECK: There is no adenopathy in the neck. LUNGS : Reveal mildly decreased breath sounds bilaterally, but without wheezes, rales, or rhonchi. CARDIAC: Exam reveals a regular rate and rhythm without gallop, rub, or murmur. Good capillary refill in the toes. ABDOMEN: Normoactive bowel sounds. Soft and nontender. EXTREMITIES: Lower extremities, his dressings were not removed today. He does have good capillary refill in the toes. LABORATORY DATA: Returning this morning reveals a creatinine of 1.59, which appears to have plateaued. Anion gap is 8. Calcium is 9.5. CBC is pending. IMPRESSION: 1. Fever. The patient have presumed sepsis on admission, most likely from lower extremity ulceration. His urinalysis did show Enterobacter cloacae, but only grew 10,000-50,000 colonies. This is sensitive to Zosyn. His vancomycin has been stopped due to elevated level with his renal failure. Wound culture is still pending. We will await blood cultures from last evening, but if blood cultures continue to be negative, not sure of the source of the fever, if this could be medication related, his methotrexate. In any event, his methotrexate will be stopped. Hopefully, this will improve his lower extremity ulcers as far as healing and resolve his immunosuppression. Continue to follow, but the patient is hemodynamically stable. 2. Pancytopenia. Originally felt that this may have been related to sepsis, but with cultures being negative suspect that this is related to his methotrexate. Hopefully, his platelet count will plateau and start improving, and if this is the case for the holding of his methotrexate, this should resolve. B12 level is also pending. 3. Acute renal failure on chronic renal failure. Plan: Urine output has been good. Creatinine seems to have plateaued currently, and I think with holding his vancomycin and methotrexate this should continue to improve. I did hold his potassium, and if his potassium decreases, would restart his potassium supplementation. 4. Lower extremity ulcers. He has continued to improve with dressing changes and elevation. He does have extensive ulcerations in both lower extremities and has had vascular intervention in the past without much improvement. With dressing changes, elevation, and easing his methotrexate hopefully these will continue to improve. 5. Diabetes mellitus. Controlled off his metformin due to his renal failure. Just getting supplemental NovoLog sliding scale. 6. Chronic obstructive pulmonary disease, stable. 7. Acute encephalopathy. His confusion seems to be related to his fever. He clears when his fever resolves. Narcotic medication may also be contributing to this and his fentanyl patch was decreased from 50-25 mcg every 3 days. His neurologic exam is otherwise nonfocal, so do not feel a CT is warranted at this time. 8. Rheumatoid arthritis. Currently controlled. We will continue to hold methotrexate. 9. Right upper lobe lung mass. 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 He does appear to have mediastinal adenopathy, so if this is a carcinoma, I do not feel that this is resectable. I talked with his and the patient last evening and felt that a CT-guided biopsy would be warranted for diagnosis since this is a very peripheral lesion. Currently, he would be unable to do that due to his clinical status, but with improvement my hope would be could get this done next week. Family conference will be held this afternoon to discuss this. In anticipation of a biopsy to be done within the next week, we will hold the patient's Plavix and also would need to have his platelet count improved prior to planned biopsy. 10.Deep vein thrombosis prophylaxis. Due to the patient's thrombocytopenia his Lovenox was held for deep vein thrombosis prophylaxis. If his platelet count improves, would consider initiating deep vein thrombosis prophylaxis. At this present time his Plavix will also be held. ANIVAL /[id number]
[2017-08-20] MEDS ORDERED: HYDROmorphone 2 MG/ML Syringe ONE ×2 (10:15→13:13)
[2017-08-20] MEDS: HYDROmorphone 2 MG/ML Syringe IV SCH ×2 (10:30→13:18)
[2017-08-20] MEDS ORDERED: fentaNYL 50 MCG/HR Transdermal Patch TRDERM SCH (14:00)
[2017-08-20] MEDS: HYDROmorphone 2 MG/ML Syringe IVPUSH PRN (19:45)
[2017-08-20] MEDS: Acetaminophen 325 MG Tab PO PRN (21:31)
[2017-08-20] MEDS ORDERED: Ketorolac 60 MG/2 ML SDV IVPUSH PRN (22:43)
[2017-08-20] MEDS: Nicotine 21 MG/24 Hr Patch TRDERM SCH (22:45)
[2017-08-21] MEDS: Piperacillin/Tazobactam 3.375 GM in Sodium Chloride 0.9% 100 ML IV SCH ×4 (00:17→17:17)
[2017-08-21] MEDS: Sodium Chloride 0.9% 1,000 ML IV SCH (00:22)
[2017-08-21] MEDS: Acetaminophen/oxyCODONE 325-5 MG Tab PO PRN ×2 (02:43→07:41)
[2017-08-21] MEDS: traZODone 50 MG Tab PO SCH ×2 (02:44→21:29)
[2017-08-21] MEDS: Omeprazole 20 MG Cap.CR PO SCH (06:09)
[2017-08-21] MEDS: fentaNYL 50 MCG/HR Transdermal Patch TRDERM SCH (07:36)
[2017-08-21] MEDS: Folic Acid 1 MG Tab PO SCH (08:11)
[2017-08-21] MEDS: Ferrous Sulfate 325 MG Tab PO SCH ×2 (08:11→17:25)
[2017-08-21] MEDS: Tamsulosin 0.4 MG Cap.ER PO SCH (08:11)
[2017-08-21] MEDS: Metoprolol Succinate 25 MG Tab.ER PO SCH (08:11)
[2017-08-21] MEDS: Gabapentin 300 MG Cap PO SCH ×3 (08:11→21:29)
[2017-08-21] MEDS: Insulin Aspart 100 Units/ML 3 ML Pen SUBCUT SCH ×3 (08:17→17:27)
[2017-08-21] MEDS: Albuterol/Ipratropium 3.0-0.5 MG/3 ML Neb Soln INH SCH ×4 (08:54→21:29)
[2017-08-21] MEDS: HYDROmorphone 2 MG/ML Syringe IV SCH (09:53)
--- NOTE | 2017-08-21 10:47 | PCM.SN ---
- Free Text/Narrative Note: S:Pt reports having a good night and feeling ok today. States he doesn't remember running a temp last night. O: Temp of 103 last night noted with review of notes and staff reporting to provider now. Temp improved today. Vital signs stable and labs reviewed. Hgb improved and PLT stabilized and WBC slightly improved. BUN stable. Abdomen sounds noted X 4 quad. Lung sounds clear to auscultation. S1,S2 auscultated and regular. Pt is alert and family with pt. A/P:continue with present medical regime. Blood cultures ordered if temp increase to greater than 100.6. Change Docusate to daily and not prn. Continue to monitor closely.
[2017-08-21] MEDS: HYDROmorphone 2 MG/ML Syringe IVPUSH PRN ×2 (13:30→20:17)
[2017-08-21] MEDS ORDERED: Furosemide 20 MG/2 ML VIAL IVPUSH ONE (15:06)
[2017-08-21] MEDS: Nicotine 21 MG/24 Hr Patch TRDERM SCH (20:21)
[2017-08-21] MEDS ORDERED: Ketorolac 30 MG/ML SDV ONE (22:18)
[2017-08-22] MEDS: Piperacillin/Tazobactam 3.375 GM in Sodium Chloride 0.9% 100 ML IV SCH ×4 (00:03→18:00)
[2017-08-22] MEDS: Sodium Chloride 0.9% 1,000 ML IV SCH (00:04)
[2017-08-22] MEDS: Omeprazole 20 MG Cap.CR PO SCH (06:31)
[2017-08-22] MEDS: Acetaminophen/oxyCODONE 325-5 MG Tab PO PRN ×2 (06:56→17:10)
[2017-08-22] MEDS: Folic Acid 1 MG Tab PO SCH (07:39)
[2017-08-22] MEDS: Ferrous Sulfate 325 MG Tab PO SCH ×2 (07:39→17:28)
[2017-08-22] MEDS: Tamsulosin 0.4 MG Cap.ER PO SCH (07:39)
[2017-08-22] MEDS: Gabapentin 300 MG Cap PO SCH ×2 (07:39→15:58)
[2017-08-22] MEDS: Albuterol/Ipratropium 3.0-0.5 MG/3 ML Neb Soln INH SCH ×4 (07:40→21:22)
[2017-08-22] MEDS: Metoprolol Succinate 25 MG Tab.ER PO SCH (07:40)
[2017-08-22] MEDS: Insulin Aspart 100 Units/ML 3 ML Pen SUBCUT SCH ×3 (08:25→17:28)
--- NOTE | 2017-08-22 12:07 | PCM.PN ---
- General Info Date of Service: 08/22/17 Subjective Update: Patient states he is feeling better today. He had a good day last night and family states he only had one episode of fever at 101 which has resolved. Patient has a good appetite and denies any other concerns. His pain has been under control with the dilaudid. Functional Status: Reports: Pain Controlled, Tolerating Diet - Review of Systems General: Reports: Weakness HEENT: Reports: No Symptoms Pulmonary: Reports: No Symptoms Cardiovascular: Reports: No Symptoms Gastrointestinal: Reports: No Symptoms Genitourinary: Reports: No Symptoms Musculoskeletal: Reports: Back Pain, Leg Pain, Joint Pain Neurological: Reports: Weakness - Patient Data Vitals - Most Recent: Last Vital Signs Temp 36.8 C 08/22/17 06:29 Pulse 69 08/22/17 07:40 Resp 16 08/22/17 06:29 BP 104/56 L 08/22/17 07:40 Pulse Ox 91 L 08/22/17 06:29 Weight - Most Recent: 86.5 kg I&O - Last 24 Hours: Intake & Output 08/21/17 08/22/17 08/22/17 22:59 06:59 14:59 Intake Total 1760 1100 Output Total 600 600 Balance 1160 500 Lab Results Last 24 Hours: Laboratory Results - last 24 hr 08/22/17 08/22/17 08/22/17 Range/Units 06:48 08:10 08:10 WBC 2.7 L (4.0-11.0) K/uL RBC 2.13 L (4.50-6.50) M/uL Hgb 8.1 L (13.0-18.0) g/dL Hct 23.0 L (40.0-54.0) % MCV 108 H (76-96) fL MCH 38.0 H (27.0-32.0) pg MCHC 35.2 H (31.0-35.0) g/dL RDW 18.9 H (11.0-16.0) % Plt Count 43 L* (150-400) K/uL MPV 10.5 H (6.0-10.0) fL Neut % (Auto) 55.0 (45.0-70.0) % Lymph % (Auto) 11.1 L (20.0-40.0) % [place] % (Auto) 28.4 H (3.0-10.0) % Eos % (Auto) 3.7 (1.0-5.0) % Baso % (Auto) 1.8 H (0.0-0.5) % Neut # (Auto) 1.49 L (2.00-7.50) K/uL Lymph # (Auto) 0.30 L (1.50-4.00) K/uL [place] # (Auto) 0.77 (0.20-0.80) K/uL Eos # (Auto) 0.10 (0.04-0.40) K/uL Baso # (Auto) 0.05 (0.02-0.10) K/uL PT 13.8 H D (9.0-11.5) sec INR 1.4 D (1.0-3.5) Sodium (136-145) mmol/L Potassium (3.5-5.1) mmol/L Chloride (98-107) mmol/L Carbon Dioxide (21.0-32.0) mmol/L Anion Gap (5.0-15.0) mmol/L BUN (8-26) mg/dL Creatinine (0.70-1.30) mg/dL Est Cr Clr Drug Dosing mL/min Estimated GFR (MDRD) (>60) MLS/MIN BUN/Creatinine Ratio (6-25) Glucose (74-100) mg/dL POC Glucose 104 (74-110) mg/dL Calcium (8.5-10.1) mg/dL Total Bilirubin (0.0-1.0) mg/dL AST (15-37) U/L ALT (12-78) U/L Alkaline Phosphatase (46-116) U/L Total Protein (6.4-8.2) g/dL Albumin (3.4-5.0) g/dL Globulin (2.2-4.2) g/dL Albumin/Globulin Ratio (0.8-2.0) TSH, Ultra Sensitive (0.358-3.740) uIU/mL 08/22/17 08/22/17 Range/Units 08:10 10:16 WBC (4.0-11.0) K/uL RBC (4.50-6.50) M/uL Hgb (13.0-18.0) g/dL Hct (40.0-54.0) % MCV (76-96) fL MCH (27.0-32.0) pg MCHC (31.0-35.0) g/dL RDW (11.0-16.0) % Plt Count (150-400) K/uL MPV (6.0-10.0) fL Neut % (Auto) (45.0-70.0) % Lymph % (Auto) (20.0-40.0) % [place] % (Auto) (3.0-10.0) % Eos % (Auto) (1.0-5.0) % Baso % (Auto) (0.0-0.5) % Neut # (Auto) (2.00-7.50) K/uL Lymph # (Auto) (1.50-4.00) K/uL [place] # (Auto) (0.20-0.80) K/uL Eos # (Auto) (0.04-0.40) K/uL Baso # (Auto) (0.02-0.10) K/uL PT (9.0-11.5) sec INR (1.0-3.5) Sodium 139 (136-145) mmol/L Potassium 3.8 (3.5-5.1) mmol/L Chloride 105 (98-107) mmol/L Carbon Dioxide 28.8 (21.0-32.0) mmol/L Anion Gap 9.0 (5.0-15.0) mmol/L BUN 23 (8-26) mg/dL Creatinine 1.61 H (0.70-1.30) mg/dL Est Cr Clr Drug Dosing 42.82 mL/min Estimated GFR (MDRD) 42 L (>60) MLS/MIN BUN/Creatinine Ratio 14.3 (6-25) Glucose 107 H (74-100) mg/dL POC Glucose 131 H (74-110) mg/dL Calcium 9.8 (8.5-10.1) mg/dL Total Bilirubin 1.1 H (0.0-1.0) mg/dL AST 56 H (15-37) U/L ALT 24 (12-78) U/L Alkaline Phosphatase 109 (46-116) U/L Total Protein 4.7 L (6.4-8.2) g/dL Albumin 1.6 L (3.4-5.0) g/dL Globulin 3.1 (2.2-4.2) g/dL Albumin/Globulin Ratio 0.5 L (0.8-2.0) TSH, Ultra Sensitive 4.482 H (0.358-3.740) uIU/mL Ken Results Last 24 Hours: Microbiology 08/19/17 19:55 Aerobic Blood Culture - Preliminary Blood NO GROWTH AFTER 2 DAYS Anaerobic Blood Culture - Preliminary NO GROWTH AFTER 2 DAYS 08/19/17 19:35 Aerobic Blood Culture - Preliminary Blood NO GROWTH AFTER 2 DAYS Anaerobic Blood Culture - Preliminary NO GROWTH AFTER 2 DAYS 08/17/17 14:16 Aerobic Blood Culture - Preliminary Blood NO GROWTH AFTER 4 DAYS Anaerobic Blood Culture - Preliminary NO GROWTH AFTER 4 DAYS 08/18/17 13:24 Gram Stain - Final Toe, Right - Right Big Wound Culture - Final Enterobacter Cloacae 08/18/17 13:25 Gram Stain - Final Leg, Right Wound Culture - Final Enterobacter Cloacae 08/18/17 13:24 Wound Culture - Preliminary Leg, Left Enterobacter Cloacae Med Orders - Current: Current Medications Acetaminophen (Tylenol) 650 mg PO ASDIRECTED PRN PRN Reason: Pain Last Admin: 08/20/17 21:31 Dose: 325 mg Albuterol/Ipratropium (Duoneb 3.0-0.5 Mg/3 Ml) 3 ml INH QID [facility] Last Admin: 08/22/17 07:40 Dose: 3 ml Fentanyl (Duragesic) 50 mcg TRDERM Q72H [facility] Last Admin: 08/21/17 07:36 Dose: 50 mcg Ferrous Sulfate (Ferrous Sulfate) 325 mg PO BIDMEALS [facility] Last Admin: 08/22/17 07:39 Dose: 325 mg Folic Acid (Folic Acid) 1 mg PO DAILY [facility] Last Admin: 08/22/17 07:39 Dose: 1 mg Gabapentin (Neurontin) 300 mg PO TID [facility] Last Admin: 08/22/17 07:39 Dose: 300 mg Hydromorphone HCl (Dilaudid) 1 mg IV DAILY [facility] Last Admin: 08/21/17 09:53 Dose: 1 mg Hydromorphone HCl (Dilaudid) 1 mg IVPUSH Q4H PRN PRN Reason: Pain (severe 7-10) Last Admin: 08/21/17 20:17 Dose: 1 mg Piperacillin Sod/Tazobactam (Sod 3.375 gm/ Sodium Chloride) 100 mls @ 100 mls/ hr IV Q6H [facility] Last Admin: 08/22/17 05:58 Dose: 100 mls/hr Sodium Chloride (Normal Saline) 1,000 mls @ 30 mls/hr IV ASDIRECTED [facility] Last Admin: 08/22/17 00:04 Dose: 30 mls/hr Insulin Aspart (Novolog) 0 unit SUBCUT 0800,1200,1700 AZUL PRN Reason: Protocol Last Admin: 08/22/17 08:25 Dose: Not Given Ketorolac Tromethamine (Toradol) 30 mg IVPUSH Q6H PRN PRN Reason: Fever Stop: 08/25/17 22:44 Last Admin: 08/21/17 22:15 Dose: 15 mg Metoprolol Succinate (Toprol Xl) 25 mg PO DAILY [facility] Last Admin: 08/22/17 07:40 Dose: Not Given Nicotine (Habitrol) 21 mg TRDERM Q24H [facility] Last Admin: 08/21/17 20:21 Dose: 21 mg Omeprazole (Omeprazole) 20 mg PO ACBREAKFAST [facility] Last Admin: 08/22/17 06:31 Dose: 20 mg Oxycodone/Acetaminophen (Percocet 325-5 Mg) 1 tab PO Q4H PRN PRN Reason: Pain Last Admin: 08/22/17 06:56 Dose: 1 tab Senna/Docusate Sodium (Senna Plus) 1 tab PO DAILY [facility] Last Admin: 08/22/17 07:39 Dose: 1 tab Tamsulosin HCl (Flomax) 0.4 mg PO DAILY [facility] Last Admin: 08/22/17 07:39 Dose: 0.4 mg Trazodone HCl (Trazodone) 50 mg PO BEDTIME [facility] Last Admin: 08/21/17 21:29 Dose: Not Given Discontinued Medications Clopidogrel Bisulfate (Plavix) 75 mg PO DAILY [facility] Last Admin: 08/20/17 09:23 Dose: Not Given Fentanyl (Duragesic) 25 mcg TRDERM Q72H [facility] Last Admin: 08/18/17 08:41 Dose: 25 mcg Fentanyl (Duragesic) 50 mcg TRDERM Q72H [facility] Furosemide (Lasix) 20 mg IVPUSH ONETIME ONE Stop: 08/21/17 15:07 Last Admin: 08/21/17 15:23 Dose: 20 mg Hydromorphone HCl (Dilaudid) Confirm Administered Dose 2 mg .ROUTE .STK-MED ONE Stop: 08/20/17 10:16 Last Admin: 08/20/17 12:29 Dose: Not Given Hydromorphone HCl (Dilaudid) Confirm Administered Dose 2 mg .ROUTE .STK-MED ONE Stop: 08/20/17 13:14 Last Admin: 08/20/17 14:06 Dose: Not Given Piperacillin Sod/Tazobactam (Sod 3.375 gm/ Sodium Chloride) 100 mls @ 100 mls/ hr IV Q6H [facility] Last Admin: 08/18/17 05:41 Dose: 100 mls/hr Vancomycin HCl 1 gm/Vancomycin HCl 250 mg/ Sodium Chloride 250 mls @ 166.667 mls/hr IV Q12H [facility] Last Admin: 08/18/17 10:05 Dose: Not Given Sodium Chloride (Normal Saline) 1,000 mls @ 75 mls/hr IV ASDIRECTED [facility] Last Admin: 08/17/17 18:55 Dose: 75 mls/hr Piperacillin Sod/Tazobactam (Sod 3.375 gm/ Sodium Chloride) 100 mls @ 100 mls/ hr IV Q6H [facility] Last Admin: 08/18/17 10:05 Dose: Not Given Vancomycin HCl 1 gm/Vancomycin HCl 250 mg/ Sodium Chloride 250 mls @ 166.667 mls/hr IV Q12H [facility] Last Admin: 08/19/17 11:48 Dose: Not Given Insulin Aspart (Novolog) 0 unit SUBCUT TID [facility] PRN Reason: Protocol Last Admin: 08/17/17 20:46 Dose: Not Given Ketorolac Tromethamine (Toradol) Confirm Administered Dose 30 mg .ROUTE .STK- MED ONE Stop: 08/21/17 22:19 Last Admin: 08/21/17 22:52 Dose: Not Given Pneumococcal Polyvalent Vaccine (Pneumovax 23) 0.5 ml IM .ONCE ONE Stop: 08/17/17 18:09 Potassium Chloride (Klor-Con M20) 20 meq PO DAILY [facility] Last Admin: 08/19/17 08:17 Dose: 20 meq Senna/Docusate Sodium (Senna Plus) 1 tab PO DAILY PRN PRN Reason: Constipation Last Admin: 08/21/17 10:41 Dose: 1 tab - Exam General: Alert, Oriented, Cooperative HEENT: Pupils Equal, Pupils Reactive, EOMI Neck: Supple Lungs: Clear to Auscultation, Normal Respiratory Effort Cardiovascular: Regular Rate, Regular Rhythm GI/Abdominal Exam: Normal Bowel Sounds Back Exam: Normal Inspection Extremities: Pedal Edema - Problem List & Annotations (1) Leukopenia SNOMED Code(s): 82058438 Code(s): D72.819 - DECREASED WHITE BLOOD CELL COUNT, UNSPECIFIED Status: Acute Current Visit: Yes (2) Pancytopenia SNOMED Code(s): 833159209 Code(s): D61.818 - OTHER PANCYTOPENIA Status: Acute Current Visit: Yes (3) Acute renal failure (ARF) SNOMED Code(s): 75501943 Code(s): N17.9 - ACUTE KIDNEY FAILURE, UNSPECIFIED Status: Acute Current Visit: Yes (4) Lung mass SNOMED Code(s): 175407139 Code(s): R91.8 - OTHER NONSPECIFIC ABNORMAL FINDING OF LUNG FIELD Status: Acute Current Visit: Yes (5) Thrombocytopenia SNOMED Code(s): 532762734 Code(s): D69.6 - THROMBOCYTOPENIA, UNSPECIFIED Status: Acute Current Visit: Yes (6) Leg pain, bilateral SNOMED Code(s): 96590725 Code(s): M79.604 - PAIN IN RIGHT LEG; M79.605 - PAIN IN LEFT LEG Status: Acute Current Visit: Yes (7) Chronic wound of extremity SNOMED Code(s): 352711518 Code(s): FKK1832 - Status: Acute Priority: High Current Visit: No (8) Pneumonia SNOMED Code(s): 835095587 Code(s): J18.9 - PNEUMONIA, UNSPECIFIED ORGANISM Status: Acute Priority: High Current Visit: No Onset Date: 08/03/17 (9) Weakness of both lower extremities SNOMED Code(s): 6845605 Code(s): R29.898 - OTH SYMPTOMS AND SIGNS INVOLVING THE MUSCULOSKELETAL SYSTEM Status: Acute Priority: High Current Visit: No (10) Elevated TSH SNOMED Code(s): 546419581 Code(s): R94.6 - ABNORMAL RESULTS OF THYROID FUNCTION STUDIES Status: Acute Current Visit: Yes (11) Elevated AST (SGOT) SNOMED Code(s): 794306009 Code(s): R74.0 - NONSPEC ELEV OF LEVELS OF TRANSAMNS & LACTIC ACID DEHYDRGNSE Status: Acute Current Visit: Yes (12) Anemia SNOMED Code(s): 667874452 Code(s): D64.9 - ANEMIA, UNSPECIFIED Status: Acute Current Visit: Yes (13) Elevated bilirubin SNOMED Code(s): 524469624 Code(s): R17 - UNSPECIFIED JAUNDICE Status: Acute Current Visit: Yes - Problem List Review Problem List Initiated/Reviewed/Updated: Yes - Plan Plan:: Fungal cultures done. Patient continued on antibiotics. Discussed with family further labs in am for follow up condition and changes. Lung mass - patient to obtain further workup and likely biopsy when discharged from acute care. ARF on CRF - we will continue to monitor as Cr and GFR has not fluctuated too much. Pancytopenia - we will continue to monitor. Methotrexate discontinued recently. Wound care of lower extremities - we will continue zosyn as Enterobacteriaciae are sensitive. continue current diet and plan. F/u labs in AM.
[2017-08-22] MEDS: HYDROmorphone 2 MG/ML Syringe IV SCH (12:33)
[2017-08-22] MEDS ORDERED: Menthol/Zinc Oxide Ointment 113 GM Tube TOP ONE (14:25)
[2017-08-22] MEDS: Nicotine 21 MG/24 Hr Patch TRDERM SCH (22:00)
[2017-08-23] MEDS: Acetaminophen/oxyCODONE 325-5 MG Tab PO PRN ×2 (03:15→19:59)
[2017-08-23] MEDS: Gabapentin 300 MG Cap PO SCH ×4 (04:12→20:14)
[2017-08-23] MEDS: Menthol/Zinc Oxide Ointment 113 GM Tube TOP SCH ×3 (04:12→21:00)
[2017-08-23] MEDS: traZODone 50 MG Tab PO SCH ×2 (04:12→20:35)
[2017-08-23] MEDS: Sodium Chloride 0.9% 1,000 ML IV SCH ×2 (04:15→23:52)
[2017-08-23] MEDS: Piperacillin/Tazobactam 3.375 GM in Sodium Chloride 0.9% 100 ML IV SCH ×6 (06:01→23:45)
[2017-08-23] MEDS: Omeprazole 20 MG Cap.CR PO SCH (06:01)
[2017-08-23] MEDS: Metoprolol Succinate 25 MG Tab.ER PO SCH (07:27)
[2017-08-23] MEDS: Tamsulosin 0.4 MG Cap.ER PO SCH (07:27)
[2017-08-23] MEDS: Folic Acid 1 MG Tab PO SCH (07:27)
[2017-08-23] MEDS: Ferrous Sulfate 325 MG Tab PO SCH ×2 (07:27→18:15)
[2017-08-23] MEDS: Albuterol/Ipratropium 3.0-0.5 MG/3 ML Neb Soln INH SCH ×5 (07:28→23:18)
[2017-08-23] MEDS: HYDROmorphone 2 MG/ML Syringe IVPUSH PRN ×2 (09:10→13:22)
[2017-08-23] MEDS: HYDROmorphone 2 MG/ML Syringe IV SCH (09:38)
[2017-08-23] MEDS: Insulin Aspart 100 Units/ML 3 ML Pen SUBCUT SCH ×3 (09:38→17:00)
--- NOTE | 2017-08-23 11:13 | PCM.PN ---
- General Info Date of Service: 08/23/17 Subjective Update: Patient does show clinical improvement and states he does feel better. His labs have not shown much improvement at this time. Patient continues to have some back pain but overall the pain is well controlled. Denies any chest pain or sob. No other concerns to day. Functional Status: Reports: Pain Controlled, Tolerating Diet - Review of Systems General: Reports: Weakness HEENT: Reports: No Symptoms Pulmonary: Reports: No Symptoms Cardiovascular: Reports: No Symptoms - Patient Data Vitals - Most Recent: Last Vital Signs Temp 37.0 C 08/23/17 08:00 Pulse 84 08/23/17 08:00 Resp 20 08/23/17 08:00 BP 125/66 08/23/17 08:00 Pulse Ox 94 L 08/23/17 08:00 Weight - Most Recent: 86.5 kg I&O - Last 24 Hours: Intake & Output 08/22/17 08/23/17 08/23/17 22:59 06:59 14:59 Intake Total 550 1300 Output Total 450 600 Balance 100 700 Lab Results Last 24 Hours: Laboratory Results - last 24 hr 08/22/17 08/23/17 08/23/17 Range/Units 10:16 07:00 07:00 WBC 2.8 L (4.0-11.0) K/uL RBC 2.16 L (4.50-6.50) M/uL Hgb 8.1 L (13.0-18.0) g/dL Hct 23.1 L (40.0-54.0) % MCV 107 H (76-96) fL MCH 37.5 H (27.0-32.0) pg MCHC 35.1 H (31.0-35.0) g/dL RDW 19.0 H (11.0-16.0) % Plt Count 52 L D (150-400) K/uL MPV 11.2 H (6.0-10.0) fL Neut % (Auto) 56.2 (45.0-70.0) % Lymph % (Auto) 11.6 L (20.0-40.0) % Dixon % (Auto) 27.9 H (3.0-10.0) % Eos % (Auto) 2.5 (1.0-5.0) % Baso % (Auto) 1.8 H (0.0-0.5) % Neut # (Auto) 1.55 L (2.00-7.50) K/uL Lymph # (Auto) 0.32 L (1.50-4.00) K/uL Dixon # (Auto) 0.77 (0.20-0.80) K/uL Eos # (Auto) 0.07 (0.04-0.40) K/uL Baso # (Auto) 0.05 (0.02-0.10) K/uL PT 13.5 H (9.0-11.5) sec INR 1.4 (1.0-3.5) Sodium (136-145) mmol/L Potassium (3.5-5.1) mmol/L Chloride (98-107) mmol/L Carbon Dioxide (21.0-32.0) mmol/L Anion Gap (5.0-15.0) mmol/L BUN (8-26) mg/dL Creatinine (0.70-1.30) mg/dL Est Cr Clr Drug Dosing mL/min Estimated GFR (MDRD) (>60) MLS/MIN BUN/Creatinine Ratio (6-25) Glucose (74-100) mg/dL POC Glucose 131 H (74-110) mg/dL Calcium (8.5-10.1) mg/dL Total Bilirubin (0.0-1.0) mg/dL AST (15-37) U/L ALT (12-78) U/L Alkaline Phosphatase (46-116) U/L Total Protein (6.4-8.2) g/dL Albumin (3.4-5.0) g/dL Globulin (2.2-4.2) g/dL Albumin/Globulin Ratio (0.8-2.0) TSH, Ultra Sensitive (0.358-3.740) uIU/mL 08/23/17 Range/Units 07:00 WBC (4.0-11.0) K/uL RBC (4.50-6.50) M/uL Hgb (13.0-18.0) g/dL Hct (40.0-54.0) % MCV (76-96) fL MCH (27.0-32.0) pg MCHC (31.0-35.0) g/dL RDW (11.0-16.0) % Plt Count (150-400) K/uL MPV (6.0-10.0) fL Neut % (Auto) (45.0-70.0) % Lymph % (Auto) (20.0-40.0) % Dixon % (Auto) (3.0-10.0) % Eos % (Auto) (1.0-5.0) % Baso % (Auto) (0.0-0.5) % Neut # (Auto) (2.00-7.50) K/uL Lymph # (Auto) (1.50-4.00) K/uL Dixon # (Auto) (0.20-0.80) K/uL Eos # (Auto) (0.04-0.40) K/uL Baso # (Auto) (0.02-0.10) K/uL PT (9.0-11.5) sec INR (1.0-3.5) Sodium 138 (136-145) mmol/L Potassium 3.9 (3.5-5.1) mmol/L Chloride 104 (98-107) mmol/L Carbon Dioxide 28.0 (21.0-32.0) mmol/L Anion Gap 9.9 (5.0-15.0) mmol/L BUN 24 (8-26) mg/dL Creatinine 1.60 H (0.70-1.30) mg/dL Est Cr Clr Drug Dosing 43.09 mL/min Estimated GFR (MDRD) 43 L (>60) MLS/MIN BUN/Creatinine Ratio 15.0 (6-25) Glucose 108 H (74-100) mg/dL POC Glucose (74-110) mg/dL Calcium 10.2 H (8.5-10.1) mg/dL Total Bilirubin 1.1 H (0.0-1.0) mg/dL AST 60 H (15-37) U/L ALT 25 (12-78) U/L Alkaline Phosphatase 124 H (46-116) U/L Total Protein 5.1 L (6.4-8.2) g/dL Albumin 1.7 L (3.4-5.0) g/dL Globulin 3.4 (2.2-4.2) g/dL Albumin/Globulin Ratio 0.5 L (0.8-2.0) TSH, Ultra Sensitive 3.951 H (0.358-3.740) uIU/mL Ken Results Last 24 Hours: Microbiology 08/21/17 21:15 Aerobic Blood Culture - Preliminary Blood NO GROWTH AFTER 1 DAY Anaerobic Blood Culture - Preliminary NO GROWTH AFTER 1 DAY 08/21/17 21:00 Aerobic Blood Culture - Preliminary Blood - Venous NO GROWTH AFTER 1 DAY Anaerobic Blood Culture - Preliminary NO GROWTH AFTER 1 DAY 08/19/17 19:55 Aerobic Blood Culture - Preliminary Blood NO GROWTH AFTER 3 DAYS Anaerobic Blood Culture - Preliminary NO GROWTH AFTER 3 DAYS 08/19/17 19:35 Aerobic Blood Culture - Preliminary Blood NO GROWTH AFTER 3 DAYS Anaerobic Blood Culture - Preliminary NO GROWTH AFTER 3 DAYS 08/17/17 14:16 Aerobic Blood Culture - Final Blood NO GROWTH AFTER 5 DAYS Anaerobic Blood Culture - Final NO GROWTH AFTER 5 DAYS Med Orders - Current: Current Medications Acetaminophen (Tylenol) 650 mg PO ASDIRECTED PRN PRN Reason: Pain Last Admin: 08/20/17 21:31 Dose: 325 mg Albuterol/Ipratropium (Duoneb 3.0-0.5 Mg/3 Ml) 3 ml INH QID [facility] Last Admin: 08/23/17 07:28 Dose: 3 ml Calamine/Phenol (Calmoseptine) 1 gm TOP BID [facility] Last Admin: 08/23/17 08:00 Dose: Not Given Fentanyl (Duragesic) 50 mcg TRDERM Q72H [facility] Last Admin: 08/21/17 07:36 Dose: 50 mcg Ferrous Sulfate (Ferrous Sulfate) 325 mg PO BIDMEALS [facility] Last Admin: 08/23/17 07:27 Dose: 325 mg Folic Acid (Folic Acid) 1 mg PO DAILY [facility] Last Admin: 08/23/17 07:27 Dose: 1 mg Gabapentin (Neurontin) 300 mg PO TID [facility] Last Admin: 08/23/17 07:27 Dose: 300 mg Hydromorphone HCl (Dilaudid) 1 mg IV DAILY [facility] Last Admin: 08/23/17 09:38 Dose: Not Given Hydromorphone HCl (Dilaudid) 1 mg IVPUSH Q4H PRN PRN Reason: Pain (severe 7-10) Last Admin: 08/23/17 09:10 Dose: 1 mg Piperacillin Sod/Tazobactam (Sod 3.375 gm/ Sodium Chloride) 100 mls @ 100 mls/ hr IV Q6H [facility] Last Admin: 08/23/17 06:01 Dose: 100 mls/hr Sodium Chloride (Normal Saline) 1,000 mls @ 30 mls/hr IV ASDIRECTED [facility] Last Admin: 08/23/17 04:15 Dose: 30 mls/hr Insulin Aspart (Novolog) 0 unit SUBCUT 0800,1200,1700 AZUL PRN Reason: Protocol Last Admin: 08/23/17 09:38 Dose: Not Given Ketorolac Tromethamine (Toradol) 30 mg IVPUSH Q6H PRN PRN Reason: Fever Stop: 08/25/17 22:44 Last Admin: 08/21/17 22:15 Dose: 15 mg Metoprolol Succinate (Toprol Xl) 25 mg PO DAILY [facility] Last Admin: 08/23/17 07:27 Dose: 25 mg Nicotine (Habitrol) 21 mg TRDERM Q24H [facility] Last Admin: 08/22/17 22:00 Dose: 21 mg Omeprazole (Omeprazole) 20 mg PO ACBREAKFAST [facility] Last Admin: 08/23/17 06:01 Dose: 20 mg Oxycodone/Acetaminophen (Percocet 325-5 Mg) 1 tab PO Q4H PRN PRN Reason: Pain Last Admin: 08/23/17 03:15 Dose: 1 tab Senna/Docusate Sodium (Senna Plus) 1 tab PO DAILY [facility] Last Admin: 08/23/17 07:27 Dose: 1 tab Tamsulosin HCl (Flomax) 0.4 mg PO DAILY [facility] Last Admin: 08/23/17 07:27 Dose: 0.4 mg Trazodone HCl (Trazodone) 50 mg PO BEDTIME [facility] Last Admin: 08/23/17 04:12 Dose: Not Given Discontinued Medications Calamine/Phenol (Calmoseptine) Confirm Administered Dose 113 gm TOP .STK-MED ONE Stop: 08/22/17 14:26 Last Admin: 08/22/17 17:27 Dose: 1 applic Clopidogrel Bisulfate (Plavix) 75 mg PO DAILY [facility] Last Admin: 08/20/17 09:23 Dose: Not Given Fentanyl (Duragesic) 25 mcg TRDERM Q72H [facility] Last Admin: 08/18/17 08:41 Dose: 25 mcg Fentanyl (Duragesic) 50 mcg TRDERM Q72H [facility] Furosemide (Lasix) 20 mg IVPUSH ONETIME ONE Stop: 08/21/17 15:07 Last Admin: 08/21/17 15:23 Dose: 20 mg Hydromorphone HCl (Dilaudid) Confirm Administered Dose 2 mg .ROUTE .STK-MED ONE Stop: 08/20/17 10:16 Last Admin: 08/20/17 12:29 Dose: Not Given Hydromorphone HCl (Dilaudid) Confirm Administered Dose 2 mg .ROUTE .STK-MED ONE Stop: 08/20/17 13:14 Last Admin: 08/20/17 14:06 Dose: Not Given Piperacillin Sod/Tazobactam (Sod 3.375 gm/ Sodium Chloride) 100 mls @ 100 mls/ hr IV Q6H [facility] Last Admin: 08/18/17 05:41 Dose: 100 mls/hr Vancomycin HCl 1 gm/Vancomycin HCl 250 mg/ Sodium Chloride 250 mls @ 166.667 mls/hr IV Q12H [facility] Last Admin: 08/18/17 10:05 Dose: Not Given Sodium Chloride (Normal Saline) 1,000 mls @ 75 mls/hr IV ASDIRECTED [facility] Last Admin: 08/17/17 18:55 Dose: 75 mls/hr Piperacillin Sod/Tazobactam (Sod 3.375 gm/ Sodium Chloride) 100 mls @ 100 mls/ hr IV Q6H [facility] Last Admin: 08/18/17 10:05 Dose: Not Given Vancomycin HCl 1 gm/Vancomycin HCl 250 mg/ Sodium Chloride 250 mls @ 166.667 mls/hr IV Q12H [facility] Last Admin: 08/19/17 11:48 Dose: Not Given Insulin Aspart (Novolog) 0 unit SUBCUT TID [facility] PRN Reason: Protocol Last Admin: 08/17/17 20:46 Dose: Not Given Ketorolac Tromethamine (Toradol) Confirm Administered Dose 30 mg .ROUTE .STK- MED ONE Stop: 08/21/17 22:19 Last Admin: 08/21/17 22:52 Dose: Not Given Pneumococcal Polyvalent Vaccine (Pneumovax 23) 0.5 ml IM .ONCE ONE Stop: 08/17/17 18:09 Potassium Chloride (Klor-Con M20) 20 meq PO DAILY [facility] Last Admin: 08/19/17 08:17 Dose: 20 meq Senna/Docusate Sodium (Senna Plus) 1 tab PO DAILY PRN PRN Reason: Constipation Last Admin: 08/21/17 10:41 Dose: 1 tab - Exam General: Alert, Oriented, Cooperative HEENT: Pupils Equal, Pupils Reactive, EOMI Neck: Supple Lungs: Decreased Breath Sounds, Rales Cardiovascular: Regular Rate, Regular Rhythm GI/Abdominal Exam: Normal Bowel Sounds, Soft, Non-Tender Back Exam: Normal Inspection Extremities: Normal Inspection, Normal Range of Motion, Non-Tender Peripheral Pulses: 2+: Dorsalis Pedis (L), Dorsalis Pedis (R) Skin: Warm, Dry, Intact - Problem List & Annotations (1) Leukopenia SNOMED Code(s): 40665843 Code(s): D72.819 - DECREASED WHITE BLOOD CELL COUNT, UNSPECIFIED Status: Acute Current Visit: Yes (2) Pancytopenia SNOMED Code(s): 845158229 Code(s): D61.818 - OTHER PANCYTOPENIA Status: Acute Current Visit: Yes (3) Acute renal failure (ARF) SNOMED Code(s): 30979832 Code(s): N17.9 - ACUTE KIDNEY FAILURE, UNSPECIFIED Status: Acute Current Visit: Yes (4) Lung mass SNOMED Code(s): 288648843 Code(s): R91.8 - OTHER NONSPECIFIC ABNORMAL FINDING OF LUNG FIELD Status: Acute Current Visit: Yes (5) Thrombocytopenia SNOMED Code(s): 073521545 Code(s): D69.6 - THROMBOCYTOPENIA, UNSPECIFIED Status: Acute Current Visit: Yes (6) Leg pain, bilateral SNOMED Code(s): 76516276 Code(s): M79.604 - PAIN IN RIGHT LEG; M79.605 - PAIN IN LEFT LEG Status: Acute Current Visit: Yes (7) Chronic wound of extremity SNOMED Code(s): 596545431 Code(s): AFK9193 - Status: Acute Priority: High Current Visit: No (8) Pneumonia SNOMED Code(s): 274222135 Code(s): J18.9 - PNEUMONIA, UNSPECIFIED ORGANISM Status: Acute Priority: High Current Visit: No Onset Date: 08/03/17 (9) Weakness of both lower extremities SNOMED Code(s): 7104910 Code(s): R29.898 - OTH SYMPTOMS AND SIGNS INVOLVING THE MUSCULOSKELETAL SYSTEM Status: Acute Priority: High Current Visit: No (10) Elevated TSH SNOMED Code(s): 679016723 Code(s): R94.6 - ABNORMAL RESULTS OF THYROID FUNCTION STUDIES Status: Acute Current Visit: Yes (11) Elevated AST (SGOT) SNOMED Code(s): 747215688 Code(s): R74.0 - NONSPEC ELEV OF LEVELS OF TRANSAMNS & LACTIC ACID DEHYDRGNSE Status: Acute Current Visit: Yes (12) Anemia SNOMED Code(s): 109335585 Code(s): D64.9 - ANEMIA, UNSPECIFIED Status: Acute Current Visit: Yes (13) Elevated bilirubin SNOMED Code(s): 013900280 Code(s): R17 - UNSPECIFIED JAUNDICE Status: Acute Current Visit: Yes - Problem List Review Problem List Initiated/Reviewed/Updated: Yes - My Orders Last 24 Hours: My Active Orders 08/22/17 20:00 Menthol/Zinc Oxide [Calmoseptine] 1 gm TOP BID 08/23/17 07:00 CMV AB, IGG/IGM [REF] Routine EBV EXTENDED PANEL [REF] Routine FREE T3 [REF] Routine FREE T4 [REF] Routine - Plan Plan:: Fungal cultures done. Patient continued on antibiotics. Discussed with family further labs in am for follow up condition and changes. Lung mass - patient to obtain further workup and likely biopsy when discharged from acute care. ARF on CRF - we will continue to monitor as Cr and GFR has not fluctuated too much. Pancytopenia - we will continue to monitor. Methotrexate discontinued recently. Wound care of lower extremities - we will continue zosyn as Enterobacteriaciae are sensitive. continue current diet and plan. F/u labs in AM. Continue f/u labs in AM. No changes to current medications. Patient continues to have multiple issues that have not resolved and requires acute care which include labs, IV, antibiotics and close monitoring.
[2017-08-23] MEDS ORDERED: Albuterol/Ipratropium 3.0-0.5 MG/3 ML Neb Soln ONE (14:42)
[2017-08-23] MEDS: Nicotine 21 MG/24 Hr Patch TRDERM SCH (20:00)
[2017-08-24] MEDS: Piperacillin/Tazobactam 3.375 GM in Sodium Chloride 0.9% 100 ML IV SCH ×3 (05:38→21:37)
[2017-08-24] MEDS: Omeprazole 20 MG Cap.CR PO SCH (06:11)
[2017-08-24] MEDS: HYDROmorphone 2 MG/ML Syringe IV SCH (08:48)
[2017-08-24] MEDS: Gabapentin 300 MG Cap PO SCH ×3 (08:49→21:02)
[2017-08-24] MEDS: Albuterol/Ipratropium 3.0-0.5 MG/3 ML Neb Soln INH SCH ×4 (08:49→21:02)
[2017-08-24] MEDS: Folic Acid 1 MG Tab PO SCH (08:50)
[2017-08-24] MEDS: Tamsulosin 0.4 MG Cap.ER PO SCH (08:50)
[2017-08-24] MEDS: Menthol/Zinc Oxide Ointment 113 GM Tube TOP SCH ×2 (08:50→21:01)
[2017-08-24] MEDS: Ferrous Sulfate 325 MG Tab PO SCH ×2 (08:50→16:47)
[2017-08-24] MEDS: Metoprolol Succinate 25 MG Tab.ER PO SCH (08:51)
[2017-08-24] MEDS: Insulin Aspart 100 Units/ML 3 ML Pen SUBCUT SCH ×3 (08:53→21:37)
[2017-08-24] MEDS: fentaNYL 50 MCG/HR Transdermal Patch TRDERM SCH (08:58)
--- NOTE | 2017-08-24 14:43 | PCM.PN ---
- General Info Date of Service: 08/24/17 Subjective Update: This is a 72yo M with no current concerns or complaints. He does have some fatigue but states he does feel ok today and not worse. He has felt that symptomatically he has improved the past few days. Patient does have some lower back pain occasionally. Functional Status: Reports: Pain Controlled, Tolerating Diet - Review of Systems General: Reports: Weakness HEENT: Reports: No Symptoms Pulmonary: Reports: No Symptoms Cardiovascular: Reports: No Symptoms Gastrointestinal: Reports: No Symptoms Genitourinary: Reports: No Symptoms Musculoskeletal: Reports: Back Pain, Leg Pain Skin: Reports: Other (lower leg swelling and irritation) Neurological: Reports: Weakness Psychiatric: Reports: No Symptoms - Patient Data Vitals - Most Recent: Last Vital Signs Temp 36.8 C 08/24/17 04:00 Pulse 77 08/24/17 08:51 Resp 16 08/24/17 04:00 BP 109/78 08/24/17 08:51 Pulse Ox 93 L 08/23/17 20:00 Weight - Most Recent: 85.094 kg I&O - Last 24 Hours: Intake & Output 08/23/17 08/24/17 08/24/17 22:59 06:59 14:59 Intake Total 300 1350 Output Total 350 600 Balance -50 750 Lab Results Last 24 Hours: Laboratory Results - last 24 hr 08/23/17 08/24/17 08/24/17 Range/Units 16:11 07:05 07:05 WBC 3.7 L D (4.0-11.0) K/uL RBC 2.11 L (4.50-6.50) M/uL Hgb 8.0 L (13.0-18.0) g/dL Hct 23.0 L (40.0-54.0) % MCV 109 H (76-96) fL MCH 37.9 H (27.0-32.0) pg MCHC 34.8 (31.0-35.0) g/dL RDW 19.5 H (11.0-16.0) % Plt Count 59 L (150-400) K/uL MPV 11.0 H (6.0-10.0) fL Neut % (Auto) 50.1 (45.0-70.0) % Lymph % (Auto) 14.6 L (20.0-40.0) % Hendricks % (Auto) 28.6 H (3.0-10.0) % Eos % (Auto) 5.1 H (1.0-5.0) % Baso % (Auto) 1.6 H (0.0-0.5) % Neut # (Auto) 1.85 L (2.00-7.50) K/uL Lymph # (Auto) 0.54 L (1.50-4.00) K/uL Hendricks # (Auto) 1.06 H (0.20-0.80) K/uL Eos # (Auto) 0.19 (0.04-0.40) K/uL Baso # (Auto) 0.06 (0.02-0.10) K/uL Sodium 139 (136-145) mmol/L Potassium 3.9 (3.5-5.1) mmol/L Chloride 107 (98-107) mmol/L Carbon Dioxide 29.1 (21.0-32.0) mmol/L Anion Gap 6.8 (5.0-15.0) mmol/L BUN 25 (8-26) mg/dL Creatinine 1.67 H (0.70-1.30) mg/dL Est Cr Clr Drug Dosing 41.28 mL/min Estimated GFR (MDRD) 41 L (>60) MLS/MIN BUN/Creatinine Ratio 15.0 (6-25) Glucose 104 H (74-100) mg/dL POC Glucose 138 H (74-110) mg/dL Calcium 10.2 H (8.5-10.1) mg/dL Total Bilirubin 1.0 (0.0-1.0) mg/dL AST 59 H (15-37) U/L ALT 22 (12-78) U/L Alkaline Phosphatase 128 H (46-116) U/L Total Protein 4.9 L (6.4-8.2) g/dL Albumin 1.5 L (3.4-5.0) g/dL Globulin 3.4 (2.2-4.2) g/dL Albumin/Globulin Ratio 0.4 L (0.8-2.0) Ken Results Last 24 Hours: Microbiology 08/18/17 13:24 Gram Stain - Final Leg, Left Wound Culture - Preliminary Enterobacter Cloacae 08/21/17 21:15 Aerobic Blood Culture - Preliminary Blood NO GROWTH AFTER 2 DAYS Anaerobic Blood Culture - Preliminary NO GROWTH AFTER 2 DAYS 08/21/17 21:00 Aerobic Blood Culture - Preliminary Blood - Venous NO GROWTH AFTER 2 DAYS Anaerobic Blood Culture - Preliminary NO GROWTH AFTER 2 DAYS 08/19/17 19:55 Aerobic Blood Culture - Preliminary Blood NO GROWTH AFTER 4 DAYS Anaerobic Blood Culture - Preliminary NO GROWTH AFTER 4 DAYS 08/19/17 19:35 Aerobic Blood Culture - Preliminary Blood NO GROWTH AFTER 4 DAYS Anaerobic Blood Culture - Preliminary NO GROWTH AFTER 4 DAYS Med Orders - Current: Current Medications Acetaminophen (Tylenol) 650 mg PO ASDIRECTED PRN PRN Reason: Pain Last Admin: 08/20/17 21:31 Dose: 325 mg Albuterol/Ipratropium (Duoneb 3.0-0.5 Mg/3 Ml) 3 ml INH QID [facility] Last Admin: 08/24/17 08:49 Dose: 3 ml Calamine/Phenol (Calmoseptine) 1 gm TOP BID [facility] Last Admin: 08/24/17 08:50 Dose: 1 applic Fentanyl (Duragesic) 50 mcg TRDERM Q72H [facility] Last Admin: 08/24/17 08:58 Dose: 50 mcg Ferrous Sulfate (Ferrous Sulfate) 325 mg PO BIDMEALS [facility] Last Admin: 08/24/17 08:50 Dose: 325 mg Folic Acid (Folic Acid) 1 mg PO DAILY [facility] Last Admin: 08/24/17 08:50 Dose: 1 mg Gabapentin (Neurontin) 300 mg PO TID [facility] Last Admin: 08/24/17 08:49 Dose: 300 mg Hydromorphone HCl (Dilaudid) 1 mg IV DAILY [facility] Last Admin: 08/24/17 08:48 Dose: 1 mg Hydromorphone HCl (Dilaudid) 1 mg IVPUSH Q4H PRN PRN Reason: Pain (severe 7-10) Last Admin: 08/23/17 13:22 Dose: 1 mg Piperacillin Sod/Tazobactam (Sod 3.375 gm/ Sodium Chloride) 100 mls @ 100 mls/ hr IV Q6H [facility] Last Admin: 08/24/17 05:38 Dose: 100 mls/hr Sodium Chloride (Normal Saline) 1,000 mls @ 30 mls/hr IV ASDIRECTED [facility] Last Admin: 08/23/17 23:52 Dose: 30 mls/hr Insulin Aspart (Novolog) 0 unit SUBCUT 0800,1200,1700 AZUL PRN Reason: Protocol Last Admin: 08/24/17 08:53 Dose: Not Given Ketorolac Tromethamine (Toradol) 30 mg IVPUSH Q6H PRN PRN Reason: Fever Stop: 08/25/17 22:44 Last Admin: 08/21/17 22:15 Dose: 15 mg Metoprolol Succinate (Toprol Xl) 25 mg PO DAILY [facility] Last Admin: 08/24/17 08:51 Dose: 25 mg Nicotine (Habitrol) 21 mg TRDERM Q24H [facility] Last Admin: 08/23/17 20:00 Dose: 21 mg Omeprazole (Omeprazole) 20 mg PO ACBREAKFAST [facility] Last Admin: 08/24/17 06:11 Dose: 20 mg Oxycodone/Acetaminophen (Percocet 325-5 Mg) 1 tab PO Q4H PRN PRN Reason: Pain Last Admin: 08/23/17 19:59 Dose: 1 tab Senna/Docusate Sodium (Senna Plus) 1 tab PO DAILY [facility] Last Admin: 08/24/17 08:50 Dose: 1 tab Tamsulosin HCl (Flomax) 0.4 mg PO DAILY [facility] Last Admin: 08/24/17 08:50 Dose: 0.4 mg Trazodone HCl (Trazodone) 50 mg PO BEDTIME [facility] Last Admin: 08/23/17 20:35 Dose: 50 mg Discontinued Medications Albuterol/Ipratropium (Duoneb 3.0-0.5 Mg/3 Ml) Confirm Administered Dose 3 ml .ROUTE .STK-MED ONE Stop: 08/23/17 14:43 Last Admin: 08/23/17 15:46 Dose: Not Given Calamine/Phenol (Calmoseptine) Confirm Administered Dose 113 gm TOP .STK-MED ONE Stop: 08/22/17 14:26 Last Admin: 08/22/17 17:27 Dose: 1 applic Clopidogrel Bisulfate (Plavix) 75 mg PO DAILY [facility] Last Admin: 08/20/17 09:23 Dose: Not Given Fentanyl (Duragesic) 25 mcg TRDERM Q72H [facility] Last Admin: 08/18/17 08:41 Dose: 25 mcg Fentanyl (Duragesic) 50 mcg TRDERM Q72H [facility] Furosemide (Lasix) 20 mg IVPUSH ONETIME ONE Stop: 08/21/17 15:07 Last Admin: 08/21/17 15:23 Dose: 20 mg Hydromorphone HCl (Dilaudid) Confirm Administered Dose 2 mg .ROUTE .STK-MED ONE Stop: 08/20/17 10:16 Last Admin: 08/20/17 12:29 Dose: Not Given Hydromorphone HCl (Dilaudid) Confirm Administered Dose 2 mg .ROUTE .STK-MED ONE Stop: 08/20/17 13:14 Last Admin: 08/20/17 14:06 Dose: Not Given Piperacillin Sod/Tazobactam (Sod 3.375 gm/ Sodium Chloride) 100 mls @ 100 mls/ hr IV Q6H [facility] Last Admin: 08/18/17 05:41 Dose: 100 mls/hr Vancomycin HCl 1 gm/Vancomycin HCl 250 mg/ Sodium Chloride 250 mls @ 166.667 mls/hr IV Q12H [facility] Last Admin: 08/18/17 10:05 Dose: Not Given Sodium Chloride (Normal Saline) 1,000 mls @ 75 mls/hr IV ASDIRECTED [facility] Last Admin: 08/17/17 18:55 Dose: 75 mls/hr Piperacillin Sod/Tazobactam (Sod 3.375 gm/ Sodium Chloride) 100 mls @ 100 mls/ hr IV Q6H [facility] Last Admin: 08/18/17 10:05 Dose: Not Given Vancomycin HCl 1 gm/Vancomycin HCl 250 mg/ Sodium Chloride 250 mls @ 166.667 mls/hr IV Q12H [facility] Last Admin: 08/19/17 11:48 Dose: Not Given Insulin Aspart (Novolog) 0 unit SUBCUT TID [facility] PRN Reason: Protocol Last Admin: 08/17/17 20:46 Dose: Not Given Ketorolac Tromethamine (Toradol) Confirm Administered Dose 30 mg .ROUTE .STK- MED ONE Stop: 08/21/17 22:19 Last Admin: 08/21/17 22:52 Dose: Not Given Pneumococcal Polyvalent Vaccine (Pneumovax 23) 0.5 ml IM .ONCE ONE Stop: 08/17/17 18:09 Potassium Chloride (Klor-Con M20) 20 meq PO DAILY [facility] Last Admin: 08/19/17 08:17 Dose: 20 meq Senna/Docusate Sodium (Senna Plus) 1 tab PO DAILY PRN PRN Reason: Constipation Last Admin: 08/21/17 10:41 Dose: 1 tab - Exam General: Alert, Oriented, Cooperative, Mild Distress HEENT: Pupils Equal, Pupils Reactive, EOMI Neck: Supple, Trachea Midline Lungs: Clear to Auscultation, Normal Respiratory Effort Cardiovascular: Regular Rate, Regular Rhythm GI/Abdominal Exam: Normal Bowel Sounds Back Exam: Normal Inspection Extremities: Leg Pain Peripheral Pulses: 2+: Dorsalis Pedis (L), Dorsalis Pedis (R) - Problem List & Annotations (1) Leukopenia SNOMED Code(s): 17569745 Code(s): D72.819 - DECREASED WHITE BLOOD CELL COUNT, UNSPECIFIED Status: Acute Current Visit: Yes (2) Pancytopenia SNOMED Code(s): 617517984 Code(s): D61.818 - OTHER PANCYTOPENIA Status: Acute Current Visit: Yes (3) Acute renal failure (ARF) SNOMED Code(s): 71036138 Code(s): N17.9 - ACUTE KIDNEY FAILURE, UNSPECIFIED Status: Acute Current Visit: Yes (4) Lung mass SNOMED Code(s): 722325676 Code(s): R91.8 - OTHER NONSPECIFIC ABNORMAL FINDING OF LUNG FIELD Status: Acute Current Visit: Yes (5) Thrombocytopenia SNOMED Code(s): 048907032 Code(s): D69.6 - THROMBOCYTOPENIA, UNSPECIFIED Status: Acute Current Visit: Yes (6) Leg pain, bilateral SNOMED Code(s): 86871972 Code(s): M79.604 - PAIN IN RIGHT LEG; M79.605 - PAIN IN LEFT LEG Status: Acute Current Visit: Yes (7) Chronic wound of extremity SNOMED Code(s): 930339516 Code(s): OVT6383 - Status: Acute Priority: High Current Visit: No (8) Pneumonia SNOMED Code(s): 904640884 Code(s): J18.9 - PNEUMONIA, UNSPECIFIED ORGANISM Status: Acute Priority: High Current Visit: No Onset Date: 08/03/17 (9) Weakness of both lower extremities SNOMED Code(s): 8167566 Code(s): R29.898 - OTH SYMPTOMS AND SIGNS INVOLVING THE MUSCULOSKELETAL SYSTEM Status: Acute Priority: High Current Visit: No (10) Elevated TSH SNOMED Code(s): 675457269 Code(s): R94.6 - ABNORMAL RESULTS OF THYROID FUNCTION STUDIES Status: Acute Current Visit: Yes (11) Elevated AST (SGOT) SNOMED Code(s): 426951379 Code(s): R74.0 - NONSPEC ELEV OF LEVELS OF TRANSAMNS & LACTIC ACID DEHYDRGNSE Status: Acute Current Visit: Yes (12) Anemia SNOMED Code(s): 678158135 Code(s): D64.9 - ANEMIA, UNSPECIFIED Status: Acute Current Visit: Yes (13) Elevated bilirubin SNOMED Code(s): 086710048 Code(s): R17 - UNSPECIFIED JAUNDICE Status: Acute Current Visit: Yes (14) Mononucleosis syndrome SNOMED Code(s): 82499596 Code(s): B27.90 - INFECTIOUS MONONUCLEOSIS, UNSPECIFIED WITHOUT COMPLICATION Status: Acute Current Visit: Yes - Problem List Review Problem List Initiated/Reviewed/Updated: Yes - My Orders Last 24 Hours: My Active Orders 08/24/17 13:05 Chest Abdomen Pelvis wo Cont [CT] Urgent 08/24/17 14:35 B-TYPE NATRIURETIC PEPTIDE,BNP [CHEM] Routine 08/25/17 05:11 AMMONIA VENOUS [CHEM] Routine CBC WITH AUTO DIFF [HEME] AM COMPREHENSIVE METABOLIC PN,CMP [CHEM] AM LACTIC ACID [CHEM] Routine - Plan Plan:: Fungal cultures done. Patient continued on antibiotics. Discussed with family further labs in am for follow up condition and changes. Lung mass - patient to obtain further workup and likely biopsy when discharged from acute care. ARF on CRF - we will continue to monitor as Cr and GFR has not fluctuated too much. Pancytopenia - we will continue to monitor. Methotrexate discontinued recently. Wound care of lower extremities - we will continue zosyn as Enterobacteriaciae are sensitive. continue current diet and plan. F/u labs in AM. Continue f/u labs in AM. No changes to current medications. Patient continues to have multiple issues that have not resolved and requires acute care which include labs, IV, antibiotics and close monitoring. 08/24/17 Patient continues to have low WBC. New diagnosis of mononucleosis active infection. Discussed results with family and plan. We will continue current management as patient has shown slow but gradual improvement of his leukopenia. His platelets have slowly improved. His Anemia is stable. Patient state he physically feels improved and improved strength but does remain bed bound at this time.
--- NOTE | 2017-08-24 17:57 | CT ---
DATE OF SERVICE: 08/24/17 CLINICAL DATA: Ascites. UNENHANCED CHEST CT Multislice acquisition through the chest without IV contrast was performed. Comparison is made to a prior exam dated 08/04/17. Again noted is the right upper lobe mass. It measures 4.3 cm in its maximum axial dimension. It is unchanged in size and appearance from the prior study. There is a small left pleural effusion. It has increased in volume from the prior study. There is atelectasis and consolidation of the left lower lobe with progression from the prior study. There is a 4 mm pleural-based nodule within the left upper lobe anteriorly. It was not present on the prior exam. No other new pulmonary parenchymal abnormalities. The heart size is stable. There are coronary artery calcifications. There are enlarged lymph nodes adjacent to the aortic arch and in the AP window region. There are also enlarged lymph nodes in the lower neck and infraclavicular region on the left. These were not imaged on the prior exam. The exam is otherwise unchanged from the prior. No new lytic or blastic bone lesions. There are multiple healed left rib fractures. UNENHANCED ABDOMEN AND PELVIS CT Multislice acquisition through the abdomen and pelvis without IV or oral contrast was performed. No priors. The liver is normal in size. It does have slightly lobulated contours, suggesting the possibility of cirrhosis. There is an 8 mm low-density lesion within the left lobe of the liver. It is probably a cyst. Considering the patient's clinical history, low-density metastatic lesion cannot be excluded. No other focal hepatic lesions. There are multiple gallstones noted within the gallbladder. The gallbladder wall appears thickened. There is mild pericholecystic fat stranding. Gallbladder ultrasound is recommended. There is mild splenomegaly. It is homogeneous in attenuation. There is a 1.8 cm nodule adjacent to the spleen consistent with an accessory spleen. The pancreas appears normal. The right and left adrenals appear normal. There are small nonobstructing renal calculi bilaterally. The kidneys are otherwise unremarkable. No hydronephrosis or hydroureter. No evidence of ureterolithiasis. The patient is status post right hip arthroplasty. This produces significant beam-hardening and streak artifact, obscuring adjacent structures. The bladder is partially fluid filled. There is apparent diffuse bladder wall thickening. This is probably related to non-distention. Cystitis should be considered. There is a moderate amount of free fluid throughout the peritoneal cavity and pelvis, consistent with ascites. There are grossly enlarged lymph nodes in the para-aortic retroperitoneum. There are enlarged lymph nodes in the pelvis bilaterally with a large candido mass in the left pelvis measuring greater than 9 cm axially. There are also multiple enlarged lymph nodes in the left groin region. Metastatic disease should be considered. Lymphoma should be considered. The prostate is mildly enlarged. No free air. No dilated loops of bowel. No aortic aneurysm. There is a subcutaneous fluid collection noted in the right groin region. It measures 3.8 cm in diameter. This could possibly be enlarged replaced lymph node. No other significant findings. No lytic or blastic bone lesions. IMPRESSION: Multiple abnormalities as discussed above. [id number] MTDD
[2017-08-24] MEDS: Acetaminophen/oxyCODONE 325-5 MG Tab PO PRN (20:58)
[2017-08-24] MEDS: Nicotine 21 MG/24 Hr Patch TRDERM SCH (20:58)
[2017-08-24] MEDS: traZODone 50 MG Tab PO SCH (20:58)
[2017-08-25] MEDS: Piperacillin/Tazobactam 3.375 GM in Sodium Chloride 0.9% 100 ML IV SCH ×5 (00:41→23:30)
[2017-08-25] MEDS: Sodium Chloride 0.9% 1,000 ML IV SCH (00:42)
[2017-08-25] MEDS: Omeprazole 20 MG Cap.CR PO SCH (06:09)
[2017-08-25] MEDS: Menthol/Zinc Oxide Ointment 113 GM Tube TOP SCH ×2 (08:37→20:01)
[2017-08-25] MEDS: Folic Acid 1 MG Tab PO SCH (08:37)
[2017-08-25] MEDS: Gabapentin 300 MG Cap PO SCH ×3 (08:37→20:01)
[2017-08-25] MEDS: Albuterol/Ipratropium 3.0-0.5 MG/3 ML Neb Soln INH SCH ×4 (08:37→20:00)
[2017-08-25] MEDS: Ferrous Sulfate 325 MG Tab PO SCH ×2 (08:37→19:00)
[2017-08-25] MEDS: Tamsulosin 0.4 MG Cap.ER PO SCH (08:37)
[2017-08-25] MEDS: Insulin Aspart 100 Units/ML 3 ML Pen SUBCUT SCH ×3 (08:38→18:18)
--- NOTE | 2017-08-25 08:54 | PCM.PN ---
- General Info Date of Service: 08/25/17 Subjective Update: Patient states he feels improved this morning. He denies any concerns last night but does continue to have extreme fatigue and weakness. Patient has been eating more and feels stronger daily. Functional Status: Reports: Pain Controlled, Tolerating Diet - Review of Systems General: Reports: Weakness HEENT: Reports: No Symptoms Pulmonary: Reports: No Symptoms Cardiovascular: Reports: No Symptoms Gastrointestinal: Reports: Decreased Appetite Genitourinary: Reports: No Symptoms Musculoskeletal: Reports: Back Pain Skin: Reports: Other (decubitus ulceration starge 1-2) Neurological: Reports: Weakness - Patient Data Vitals - Most Recent: Last Vital Signs Temp 37.0 C 08/25/17 07:48 Pulse 64 08/25/17 07:48 Resp 18 08/25/17 07:48 BP 116/67 08/25/17 07:48 Pulse Ox 95 08/25/17 07:48 Weight - Most Recent: 85.094 kg I&O - Last 24 Hours: Intake & Output 08/24/17 08/25/17 08/25/17 22:59 06:59 14:59 Intake Total 750 1340 Output Total 65 600 Balance 685 740 Lab Results Last 24 Hours: Laboratory Results - last 24 hr 08/23/17 08/23/17 08/23/17 Range/Units 07:00 07:00 07:00 WBC (4.0-11.0) K/uL RBC (4.50-6.50) M/uL Hgb (13.0-18.0) g/dL Hct (40.0-54.0) % MCV (76-96) fL MCH (27.0-32.0) pg MCHC (31.0-35.0) g/dL RDW (11.0-16.0) % Plt Count (150-400) K/uL MPV (6.0-10.0) fL Neut % (Auto) (45.0-70.0) % Lymph % (Auto) (20.0-40.0) % Hayes % (Auto) (3.0-10.0) % Eos % (Auto) (1.0-5.0) % Baso % (Auto) (0.0-0.5) % Neut # (Auto) (2.00-7.50) K/uL Lymph # (Auto) (1.50-4.00) K/uL Hayes # (Auto) (0.20-0.80) K/uL Eos # (Auto) (0.04-0.40) K/uL Baso # (Auto) (0.02-0.10) K/uL Sodium (136-145) mmol/L Potassium (3.5-5.1) mmol/L Chloride (98-107) mmol/L Carbon Dioxide (21.0-32.0) mmol/L Anion Gap (5.0-15.0) mmol/L BUN (8-26) mg/dL Creatinine (0.70-1.30) mg/dL Est Cr Clr Drug Dosing mL/min Estimated GFR (MDRD) (>60) MLS/MIN BUN/Creatinine Ratio (6-25) Glucose (74-100) mg/dL Lactic Acid (0.90-1.70) mmol/L Calcium (8.5-10.1) mg/dL Total Bilirubin (0.0-1.0) mg/dL AST (15-37) U/L ALT (12-78) U/L Alkaline Phosphatase (46-116) U/L Ammonia (11-32) umol/L B-Natriuretic Peptide (0-125) pg/mL Total Protein (6.4-8.2) g/dL Albumin (3.4-5.0) g/dL Globulin (2.2-4.2) g/dL Albumin/Globulin Ratio (0.8-2.0) Free T4 1.33 (0.93-1.70) ng/dL Free T3 1.8 L (2.0-4.4) pg/mL CMV IgG Ab Negative (NEG) CMV IgM Ab Negative (NEG) EBV Capsid Ag IgG Ab Positive H (NEG) EBV Capsid Ag IgM Ab Negative (NEG) EBV Early Ag Ab Diffuse Positive H (NEG) EBV Nuclear Ag IgG Ab Positive H (NEG) 08/24/17 08/25/17 08/25/17 Range/Units 07:05 07:05 07:05 WBC 3.9 L (4.0-11.0) K/uL RBC 2.04 L (4.50-6.50) M/uL Hgb 7.7 L (13.0-18.0) g/dL Hct 22.1 L (40.0-54.0) % MCV 108 H (76-96) fL MCH 37.7 H (27.0-32.0) pg MCHC 34.8 (31.0-35.0) g/dL RDW 19.2 H (11.0-16.0) % Plt Count 56 L (150-400) K/uL MPV 10.9 H (6.0-10.0) fL Neut % (Auto) 43.1 L (45.0-70.0) % Lymph % (Auto) 20.2 (20.0-40.0) % Hayes % (Auto) 28.6 H (3.0-10.0) % Eos % (Auto) 6.6 H (1.0-5.0) % Baso % (Auto) 1.5 H (0.0-0.5) % Neut # (Auto) 1.69 L (2.00-7.50) K/uL Lymph # (Auto) 0.79 L (1.50-4.00) K/uL Hayes # (Auto) 1.12 H (0.20-0.80) K/uL Eos # (Auto) 0.26 (0.04-0.40) K/uL Baso # (Auto) 0.06 (0.02-0.10) K/uL Sodium 141 (136-145) mmol/L Potassium 3.9 (3.5-5.1) mmol/L Chloride 108 H (98-107) mmol/L Carbon Dioxide 28.6 (21.0-32.0) mmol/L Anion Gap 8.3 (5.0-15.0) mmol/L BUN 25 (8-26) mg/dL Creatinine 1.54 H (0.70-1.30) mg/dL Est Cr Clr Drug Dosing 44.77 mL/min Estimated GFR (MDRD) 45 L (>60) MLS/MIN BUN/Creatinine Ratio 16.2 (6-25) Glucose 104 H (74-100) mg/dL Lactic Acid (0.90-1.70) mmol/L Calcium 10.3 H (8.5-10.1) mg/dL Total Bilirubin 0.9 (0.0-1.0) mg/dL AST 54 H (15-37) U/L ALT 19 (12-78) U/L Alkaline Phosphatase 131 H (46-116) U/L Ammonia (11-32) umol/L B-Natriuretic Peptide 1424 H (0-125) pg/mL Total Protein 4.8 L (6.4-8.2) g/dL Albumin 1.5 L (3.4-5.0) g/dL Globulin 3.3 (2.2-4.2) g/dL Albumin/Globulin Ratio 0.5 L (0.8-2.0) Free T4 (0.93-1.70) ng/dL Free T3 (2.0-4.4) pg/mL CMV IgG Ab (NEG) CMV IgM Ab (NEG) EBV Capsid Ag IgG Ab (NEG) EBV Capsid Ag IgM Ab (NEG) EBV Early Ag Ab Diffuse (NEG) EBV Nuclear Ag IgG Ab (NEG) 08/25/17 08/25/17 Range/Units 07:05 07:10 WBC (4.0-11.0) K/uL RBC (4.50-6.50) M/uL Hgb (13.0-18.0) g/dL Hct (40.0-54.0) % MCV (76-96) fL MCH (27.0-32.0) pg MCHC (31.0-35.0) g/dL RDW (11.0-16.0) % Plt Count (150-400) K/uL MPV (6.0-10.0) fL Neut % (Auto) (45.0-70.0) % Lymph % (Auto) (20.0-40.0) % Hayes % (Auto) (3.0-10.0) % Eos % (Auto) (1.0-5.0) % Baso % (Auto) (0.0-0.5) % Neut # (Auto) (2.00-7.50) K/uL Lymph # (Auto) (1.50-4.00) K/uL Hayes # (Auto) (0.20-0.80) K/uL Eos # (Auto) (0.04-0.40) K/uL Baso # (Auto) (0.02-0.10) K/uL Sodium (136-145) mmol/L Potassium (3.5-5.1) mmol/L Chloride (98-107) mmol/L Carbon Dioxide (21.0-32.0) mmol/L Anion Gap (5.0-15.0) mmol/L BUN (8-26) mg/dL Creatinine (0.70-1.30) mg/dL Est Cr Clr Drug Dosing mL/min Estimated GFR (MDRD) (>60) MLS/MIN BUN/Creatinine Ratio (6-25) Glucose (74-100) mg/dL Lactic Acid 2.24 H (0.90-1.70) mmol/L Calcium (8.5-10.1) mg/dL Total Bilirubin (0.0-1.0) mg/dL AST (15-37) U/L ALT (12-78) U/L Alkaline Phosphatase (46-116) U/L Ammonia 31 (11-32) umol/L B-Natriuretic Peptide (0-125) pg/mL Total Protein (6.4-8.2) g/dL Albumin (3.4-5.0) g/dL Globulin (2.2-4.2) g/dL Albumin/Globulin Ratio (0.8-2.0) Free T4 (0.93-1.70) ng/dL Free T3 (2.0-4.4) pg/mL CMV IgG Ab (NEG) CMV IgM Ab (NEG) EBV Capsid Ag IgG Ab (NEG) EBV Capsid Ag IgM Ab (NEG) EBV Early Ag Ab Diffuse (NEG) EBV Nuclear Ag IgG Ab (NEG) Ken Results Last 24 Hours: Microbiology 08/21/17 21:15 Aerobic Blood Culture - Preliminary Blood NO GROWTH AFTER 3 DAYS Anaerobic Blood Culture - Preliminary NO GROWTH AFTER 3 DAYS 08/21/17 21:00 Aerobic Blood Culture - Preliminary Blood - Venous NO GROWTH AFTER 3 DAYS Anaerobic Blood Culture - Preliminary NO GROWTH AFTER 3 DAYS 08/19/17 19:55 Aerobic Blood Culture - Final Blood NO GROWTH AFTER 5 DAYS Anaerobic Blood Culture - Final NO GROWTH AFTER 5 DAYS 08/19/17 19:35 Aerobic Blood Culture - Final Blood NO GROWTH AFTER 5 DAYS Anaerobic Blood Culture - Final NO GROWTH AFTER 5 DAYS 08/18/17 13:24 Gram Stain - Final Leg, Left Wound Culture - Preliminary Enterobacter Cloacae Med Orders - Current: Current Medications Acetaminophen (Tylenol) 650 mg PO ASDIRECTED PRN PRN Reason: Pain Last Admin: 08/20/17 21:31 Dose: 325 mg Albuterol/Ipratropium (Duoneb 3.0-0.5 Mg/3 Ml) 3 ml INH QID [facility] Last Admin: 08/25/17 08:37 Dose: Not Given Calamine/Phenol (Calmoseptine) 1 gm TOP BID [facility] Last Admin: 08/25/17 08:37 Dose: 1 applic Fentanyl (Duragesic) 50 mcg TRDERM Q72H [facility] Last Admin: 08/24/17 08:58 Dose: 50 mcg Ferrous Sulfate (Ferrous Sulfate) 325 mg PO BIDMEALS [facility] Last Admin: 08/25/17 08:37 Dose: 325 mg Folic Acid (Folic Acid) 1 mg PO DAILY [facility] Last Admin: 08/25/17 08:37 Dose: 1 mg Gabapentin (Neurontin) 300 mg PO TID [facility] Last Admin: 08/25/17 08:37 Dose: 300 mg Hydromorphone HCl (Dilaudid) 1 mg IV DAILY [facility] Last Admin: 08/24/17 08:48 Dose: 1 mg Hydromorphone HCl (Dilaudid) 1 mg IVPUSH Q4H PRN PRN Reason: Pain (severe 7-10) Last Admin: 08/23/17 13:22 Dose: 1 mg Piperacillin Sod/Tazobactam (Sod 3.375 gm/ Sodium Chloride) 100 mls @ 100 mls/ hr IV Q6H [facility] Last Admin: 08/25/17 05:40 Dose: 100 mls/hr Sodium Chloride (Normal Saline) 1,000 mls @ 30 mls/hr IV ASDIRECTED [facility] Last Admin: 08/25/17 00:42 Dose: 30 mls/hr Insulin Aspart (Novolog) 0 unit SUBCUT 0800,1200,1700 [facility] PRN Reason: Protocol Last Admin: 08/25/17 08:38 Dose: Not Given Ketorolac Tromethamine (Toradol) 30 mg IVPUSH Q6H PRN PRN Reason: Fever Stop: 08/25/17 22:44 Last Admin: 08/21/17 22:15 Dose: 15 mg Metoprolol Succinate (Toprol Xl) 25 mg PO DAILY [facility] Last Admin: 08/24/17 08:51 Dose: 25 mg Nicotine (Habitrol) 21 mg TRDERM Q24H [facility] Last Admin: 08/24/17 20:58 Dose: 21 mg Omeprazole (Omeprazole) 20 mg PO ACBREAKFAST [facility] Last Admin: 08/25/17 06:09 Dose: 20 mg Oxycodone/Acetaminophen (Percocet 325-5 Mg) 1 tab PO Q4H PRN PRN Reason: Pain Last Admin: 08/24/17 20:58 Dose: 1 tab Senna/Docusate Sodium (Senna Plus) 1 tab PO DAILY [facility] Last Admin: 08/25/17 08:37 Dose: 1 tab Tamsulosin HCl (Flomax) 0.4 mg PO DAILY [facility] Last Admin: 08/25/17 08:37 Dose: 0.4 mg Trazodone HCl (Trazodone) 50 mg PO BEDTIME [facility] Last Admin: 08/24/17 20:58 Dose: 50 mg Discontinued Medications Albuterol/Ipratropium (Duoneb 3.0-0.5 Mg/3 Ml) Confirm Administered Dose 3 ml .ROUTE .STK-MED ONE Stop: 08/23/17 14:43 Last Admin: 08/23/17 15:46 Dose: Not Given Calamine/Phenol (Calmoseptine) Confirm Administered Dose 113 gm TOP .STK-MED ONE Stop: 08/22/17 14:26 Last Admin: 08/22/17 17:27 Dose: 1 applic Clopidogrel Bisulfate (Plavix) 75 mg PO DAILY [facility] Last Admin: 08/20/17 09:23 Dose: Not Given Fentanyl (Duragesic) 25 mcg TRDERM Q72H [facility] Last Admin: 08/18/17 08:41 Dose: 25 mcg Fentanyl (Duragesic) 50 mcg TRDERM Q72H [facility] Furosemide (Lasix) 20 mg IVPUSH ONETIME ONE Stop: 08/21/17 15:07 Last Admin: 08/21/17 15:23 Dose: 20 mg Hydromorphone HCl (Dilaudid) Confirm Administered Dose 2 mg .ROUTE .STK-MED ONE Stop: 08/20/17 10:16 Last Admin: 08/20/17 12:29 Dose: Not Given Hydromorphone HCl (Dilaudid) Confirm Administered Dose 2 mg .ROUTE .STK-MED ONE Stop: 08/20/17 13:14 Last Admin: 08/20/17 14:06 Dose: Not Given Piperacillin Sod/Tazobactam (Sod 3.375 gm/ Sodium Chloride) 100 mls @ 100 mls/ hr IV Q6H [facility] Last Admin: 08/18/17 05:41 Dose: 100 mls/hr Vancomycin HCl 1 gm/Vancomycin HCl 250 mg/ Sodium Chloride 250 mls @ 166.667 mls/hr IV Q12H [facility] Last Admin: 08/18/17 10:05 Dose: Not Given Sodium Chloride (Normal Saline) 1,000 mls @ 75 mls/hr IV ASDIRECTED [facility] Last Admin: 08/17/17 18:55 Dose: 75 mls/hr Piperacillin Sod/Tazobactam (Sod 3.375 gm/ Sodium Chloride) 100 mls @ 100 mls/ hr IV Q6H [facility] Last Admin: 08/18/17 10:05 Dose: Not Given Vancomycin HCl 1 gm/Vancomycin HCl 250 mg/ Sodium Chloride 250 mls @ 166.667 mls/hr IV Q12H [facility] Last Admin: 08/19/17 11:48 Dose: Not Given Insulin Aspart (Novolog) 0 unit SUBCUT TID [facility] PRN Reason: Protocol Last Admin: 08/17/17 20:46 Dose: Not Given Ketorolac Tromethamine (Toradol) Confirm Administered Dose 30 mg .ROUTE .STK- MED ONE Stop: 08/21/17 22:19 Last Admin: 08/21/17 22:52 Dose: Not Given Pneumococcal Polyvalent Vaccine (Pneumovax 23) 0.5 ml IM .ONCE ONE Stop: 08/17/17 18:09 Potassium Chloride (Klor-Con M20) 20 meq PO DAILY [facility] Last Admin: 08/19/17 08:17 Dose: 20 meq Senna/Docusate Sodium (Senna Plus) 1 tab PO DAILY PRN PRN Reason: Constipation Last Admin: 08/21/17 10:41 Dose: 1 tab - Exam General: Alert, Oriented, Cooperative HEENT: Pupils Equal, Pupils Reactive, EOMI Neck: Supple Lungs: Clear to Auscultation, Normal Respiratory Effort Cardiovascular: Regular Rate, Regular Rhythm GI/Abdominal Exam: Soft, Non-Tender, Abnormal Bowel Sounds (decreased) Back Exam: Muscle Spasm Extremities: Leg Pain Peripheral Pulses: 2+: Dorsalis Pedis (L), Dorsalis Pedis (R) - Problem List & Annotations (1) Leukopenia SNOMED Code(s): 57093603 Code(s): D72.819 - DECREASED WHITE BLOOD CELL COUNT, UNSPECIFIED Status: Acute Current Visit: Yes (2) Pancytopenia SNOMED Code(s): 909254435 Code(s): D61.818 - OTHER PANCYTOPENIA Status: Acute Current Visit: Yes (3) Acute renal failure (ARF) SNOMED Code(s): 47581759 Code(s): N17.9 - ACUTE KIDNEY FAILURE, UNSPECIFIED Status: Acute Current Visit: Yes (4) Lung mass SNOMED Code(s): 338115578 Code(s): R91.8 - OTHER NONSPECIFIC ABNORMAL FINDING OF LUNG FIELD Status: Acute Current Visit: Yes (5) Thrombocytopenia SNOMED Code(s): 537602483 Code(s): D69.6 - THROMBOCYTOPENIA, UNSPECIFIED Status: Acute Current Visit: Yes (6) Leg pain, bilateral SNOMED Code(s): 91392565 Code(s): M79.604 - PAIN IN RIGHT LEG; M79.605 - PAIN IN LEFT LEG Status: Acute Current Visit: Yes (7) Chronic wound of extremity SNOMED Code(s): 163143513 Code(s): TTX8704 - Status: Acute Priority: High Current Visit: No (8) Pneumonia SNOMED Code(s): 001279941 Code(s): J18.9 - PNEUMONIA, UNSPECIFIED ORGANISM Status: Acute Priority: High Current Visit: No Onset Date: 08/03/17 (9) Weakness of both lower extremities SNOMED Code(s): 9245556 Code(s): R29.898 - OTH SYMPTOMS AND SIGNS INVOLVING THE MUSCULOSKELETAL SYSTEM Status: Acute Priority: High Current Visit: No (10) Elevated TSH SNOMED Code(s): 478316401 Code(s): R94.6 - ABNORMAL RESULTS OF THYROID FUNCTION STUDIES Status: Acute Current Visit: Yes (11) Elevated AST (SGOT) SNOMED Code(s): 159426831 Code(s): R74.0 - NONSPEC ELEV OF LEVELS OF TRANSAMNS & LACTIC ACID DEHYDRGNSE Status: Acute Current Visit: Yes (12) Anemia SNOMED Code(s): 427736243 Code(s): D64.9 - ANEMIA, UNSPECIFIED Status: Acute Current Visit: Yes (13) Elevated bilirubin SNOMED Code(s): 448555347 Code(s): R17 - UNSPECIFIED JAUNDICE Status: Acute Current Visit: Yes (14) Mononucleosis syndrome SNOMED Code(s): 38697349 Code(s): B27.90 - INFECTIOUS MONONUCLEOSIS, UNSPECIFIED WITHOUT COMPLICATION Status: Acute Current Visit: Yes - Problem List Review Problem List Initiated/Reviewed/Updated: Yes - My Orders Last 24 Hours: My Active Orders 08/24/17 13:05 Chest Abdomen Pelvis wo Cont [CT] Urgent 08/26/17 05:11 CBC WITH AUTO DIFF [HEME] AM COMPREHENSIVE METABOLIC PN,CMP [CHEM] AM - Plan Plan:: Fungal cultures done. Patient continued on antibiotics. Discussed with family further labs in am for follow up condition and changes. Lung mass - patient to obtain further workup and likely biopsy when discharged from acute care. ARF on CRF - we will continue to monitor as Cr and GFR has not fluctuated too much. Pancytopenia - we will continue to monitor. Methotrexate discontinued recently. Wound care of lower extremities - we will continue zosyn as Enterobacteriaciae are sensitive. continue current diet and plan. F/u labs in AM. Continue f/u labs in AM. No changes to current medications. Patient continues to have multiple issues that have not resolved and requires acute care which include labs, IV, antibiotics and close monitoring. 08/25/17 Continue supportive therapy for mononucleosis. Discussed continues improvement of WBC. No changes to medications. Patient and family counseled on lung lesion and f/u with pulmonology. Discussed continue wound care, PT/OT and Swing bed admission for tomorrow if labs continue to stabilize.
[2017-08-25] MEDS: HYDROmorphone 2 MG/ML Syringe IV SCH (13:18)
[2017-08-25] MEDS: Metoprolol Succinate 25 MG Tab.ER PO SCH (18:17)
[2017-08-25] MEDS: traZODone 50 MG Tab PO SCH (20:01)
[2017-08-25] MEDS: Nicotine 21 MG/24 Hr Patch TRDERM SCH (20:02)
[2017-08-25] MEDS: HYDROmorphone 2 MG/ML Syringe IVPUSH PRN (20:38)
[2017-08-26] MEDS: HYDROmorphone 2 MG/ML Syringe IVPUSH PRN (03:30)
[2017-08-26] MEDS: Piperacillin/Tazobactam 3.375 GM in Sodium Chloride 0.9% 100 ML IV SCH (05:34)
[2017-08-26] MEDS: Omeprazole 20 MG Cap.CR PO SCH (06:20)
[2017-08-26] MEDS: Gabapentin 300 MG Cap PO SCH (07:46)
[2017-08-26] MEDS: Tamsulosin 0.4 MG Cap.ER PO SCH (07:46)
[2017-08-26] MEDS: Folic Acid 1 MG Tab PO SCH (07:47)
[2017-08-26] MEDS: Acetaminophen/oxyCODONE 325-5 MG Tab PO PRN (07:47)
[2017-08-26] MEDS: Ferrous Sulfate 325 MG Tab PO SCH (07:48)
[2017-08-26] MEDS: Metoprolol Succinate 25 MG Tab.ER PO SCH (07:48)
[2017-08-26] MEDS: Albuterol/Ipratropium 3.0-0.5 MG/3 ML Neb Soln INH SCH (07:49)
[2017-08-26] MEDS: Insulin Aspart 100 Units/ML 3 ML Pen SUBCUT SCH (07:49)
[2017-08-26 07:50] VITALS: BP 110/59
[2017-08-26] MEDS: HYDROmorphone 2 MG/ML Syringe IV SCH (09:33)
--- NOTE | 2017-08-26 10:11 | PCM.DCSUM1 ---
Discharge Summary - Discharge Data Discharge Date: 08/26/17 Discharge Disposition: DC/Tfer W/I Hosp To Swing 61 Condition: Stable - Discharge Diagnosis/Problem(s) (1) Leukopenia SNOMED Code(s): 58938377 ICD Code: D72.819 - DECREASED WHITE BLOOD CELL COUNT, UNSPECIFIED Status: Acute Current Visit: Yes (2) Pancytopenia SNOMED Code(s): 862967356 ICD Code: D61.818 - OTHER PANCYTOPENIA Status: Acute Current Visit: Yes (3) Acute renal failure (ARF) SNOMED Code(s): 23112505 ICD Code: N17.9 - ACUTE KIDNEY FAILURE, UNSPECIFIED Status: Acute Current Visit: Yes (4) Lung mass SNOMED Code(s): 505262909 ICD Code: R91.8 - OTHER NONSPECIFIC ABNORMAL FINDING OF LUNG FIELD Status: Acute Current Visit: Yes (5) Thrombocytopenia SNOMED Code(s): 644902253 ICD Code: D69.6 - THROMBOCYTOPENIA, UNSPECIFIED Status: Acute Current Visit: Yes (6) Leg pain, bilateral SNOMED Code(s): 76728517 ICD Code: M79.604 - PAIN IN RIGHT LEG; M79.605 - PAIN IN LEFT LEG Status: Acute Current Visit: Yes (7) Chronic wound of extremity SNOMED Code(s): 213873176 ICD Code: [id number] - Status: Acute Priority: High Current Visit: No (8) Pneumonia SNOMED Code(s): 841643717 ICD Code: J18.9 - PNEUMONIA, UNSPECIFIED ORGANISM Status: Acute Priority : High Current Visit: No Onset Date: 08/03/17 (9) Weakness of both lower extremities SNOMED Code(s): 2493248 ICD Code: R29.898 - OTH SYMPTOMS AND SIGNS INVOLVING THE MUSCULOSKELETAL SYSTEM Status: Acute Priority: High Current Visit: No (10) Elevated TSH SNOMED Code(s): 741787072 ICD Code: R94.6 - ABNORMAL RESULTS OF THYROID FUNCTION STUDIES Status: Acute Current Visit: Yes (11) Elevated AST (SGOT) SNOMED Code(s): 224348415 ICD Code: R74.0 - NONSPEC ELEV OF LEVELS OF TRANSAMNS & LACTIC ACID DEHYDRGNSE Status: Acute Current Visit: Yes (12) Anemia SNOMED Code(s): 898613450 ICD Code: D64.9 - ANEMIA, UNSPECIFIED Status: Acute Current Visit: Yes (13) Elevated bilirubin SNOMED Code(s): 437242733 ICD Code: R17 - UNSPECIFIED JAUNDICE Status: Acute Current Visit: Yes (14) Mononucleosis syndrome SNOMED Code(s): 46215876 ICD Code: B27.90 - INFECTIOUS MONONUCLEOSIS, UNSPECIFIED WITHOUT COMPLICATION Status: Acute Current Visit: Yes - Patient Summary/Data Consults: Consultations 08/18/17 15:53 OT Evaluation and Treatment [CONS] Routine Please Evaluate and Treat. OT Reason for Consult: Strengthening This query below is only for informational purposes and is not editable. Admission Diagnosis/Problem: Sepsis PT Evaluation and Treatment [CONS] Routine Please Evaluate and Treat. PT Reason for Consult: Strengthening This query below is only for informational purposes and is not editable. Admission Diagnosis/Problem: Sepsis - Patient Instructions Diet: Usual Diet as Tolerated Activity: As Tolerated Notify Provider of: Fever, Nausea and/or Vomiting - Discharge Plan Home Medications: Home Meds Acetaminophen 650 mg PO ASDIRECTED PRN 08/03/17 [History] Acetaminophen/oxyCODONE [Percocet 325-5 MG] 1 each PO Q4H PRN 08/03/17 [History] Clopidogrel [Plavix] 75 mg PO DAILY 08/03/17 [History] Docusate Sodium/Sennosides [Senna Plus] 1 each PO DAILY PRN 08/03/17 [History] Folic Acid 1 mg PO DAILY 08/03/17 [History] Gabapentin [Neurontin] 300 mg PO TID 08/03/17 [History] Ipratropium/Albuterol Sulfate [Iprat-Albut 0.5-3(2.5) MG/3 ML] 3 ml IH QID 08/03 [History] Metoprolol Succinate [Toprol XL] 25 mg PO DAILY 08/03/17 [History] Potassium Chloride 20 meq PO DAILY 08/03/17 [History] fentaNYL [Duragesic] 25 mcg TD ASDIRECTED 08/03/17 [History] traZODone 50 mg PO BEDTIME 08/03/17 [History] Ferrous Sulfate 325 mg PO BIDMEALS #60 tablet 08/06/17 [Rx] Nicotine [Nicoderm CQ] 21 mg TD DAILY 30 Days #30 patch.td24 08/06/17 [Rx] Tamsulosin [Tamsulosin 24 Hr] 0.4 mg PO DAILY #30 cap.er 08/06/17 [Rx] Omeprazole 20 mg PO ACBREAKFAST 08/17/17 [History] Patient Handouts: Charles-Sandoval Virus Testing - Discharge Summary/Plan Comment DC Time >30 min.: Yes Discharge Summary/Plan Comment: Counseled family on current plan of care and management as well as continued care in swing bed for more than 35 minutes. We will continue antibiotics until tomorrow. Continue wound cares of the legs. PT/OT for strength and ambulation. Repeat labs in AM and if stable will repeat later next week after tomorrow. We will continue supportive therapy for mononucleosis. Continue close monitoring of fever or symptoms. Pain management will continue as needed and reassessed. - Patient Data Vitals - Most Recent: Last Vital Signs Temp 36.6 C 08/26/17 08:00 Pulse 70 08/26/17 08:00 Resp 18 08/26/17 08:00 BP 110/59 L 08/26/17 08:00 Pulse Ox 95 08/26/17 08:00 Weight - Most Recent: 85.094 kg I&O - Last 24 hours: Intake & Output 08/25/17 08/26/17 08/26/17 22:59 06:59 14:59 Intake Total 700 300 Output Total 400 450 Balance 300 -150 Lab Results - Last 24 hrs: Laboratory Results - last 24 hr 08/26/17 08/26/17 Range/Units 07:10 07:10 WBC 4.8 D (4.0-11.0) K/uL RBC 2.14 L (4.50-6.50) M/uL Hgb 8.1 L (13.0-18.0) g/dL Hct 23.3 L (40.0-54.0) % MCV 109 H (76-96) fL MCH 37.9 H (27.0-32.0) pg MCHC 34.8 (31.0-35.0) g/dL RDW 19.5 H (11.0-16.0) % Plt Count 57 L (150-400) K/uL MPV 11.0 H (6.0-10.0) fL Neut % (Auto) 48.2 (45.0-70.0) % Lymph % (Auto) 22.5 (20.0-40.0) % Stone % (Auto) 19.8 H (3.0-10.0) % Eos % (Auto) 8.2 H (1.0-5.0) % Baso % (Auto) 1.3 H (0.0-0.5) % Neut # (Auto) 2.29 (2.00-7.50) K/uL Lymph # (Auto) 1.07 L (1.50-4.00) K/uL Stone # (Auto) 0.94 H (0.20-0.80) K/uL Eos # (Auto) 0.39 (0.04-0.40) K/uL Baso # (Auto) 0.06 (0.02-0.10) K/uL Sodium 142 (136-145) mmol/L Potassium 3.8 (3.5-5.1) mmol/L Chloride 108 H (98-107) mmol/L Carbon Dioxide 27.8 (21.0-32.0) mmol/L Anion Gap 10.0 (5.0-15.0) mmol/L BUN 25 (8-26) mg/dL Creatinine 1.63 H (0.70-1.30) mg/dL Est Cr Clr Drug Dosing 42.30 mL/min Estimated GFR (MDRD) 42 L (>60) MLS/MIN BUN/Creatinine Ratio 15.3 (6-25) Glucose 133 H (74-100) mg/dL Calcium 10.6 H (8.5-10.1) mg/dL Total Bilirubin 0.8 (0.0-1.0) mg/dL AST 56 H (15-37) U/L ALT 21 (12-78) U/L Alkaline Phosphatase 137 H (46-116) U/L Total Protein 5.1 L (6.4-8.2) g/dL Albumin 1.6 L (3.4-5.0) g/dL Globulin 3.5 (2.2-4.2) g/dL Albumin/Globulin Ratio 0.5 L (0.8-2.0) MATIAS Results - Last 24 hrs: Microbiology 08/21/17 21:15 Aerobic Blood Culture - Preliminary Blood NO GROWTH AFTER 4 DAYS Anaerobic Blood Culture - Preliminary NO GROWTH AFTER 4 DAYS 08/21/17 21:00 Aerobic Blood Culture - Preliminary Blood - Venous NO GROWTH AFTER 4 DAYS Anaerobic Blood Culture - Preliminary NO GROWTH AFTER 4 DAYS 08/18/17 13:24 Gram Stain - Final Leg, Left Wound Culture - Final Enterobacter Cloacae Med Orders - Current: Current Medications Acetaminophen (Tylenol) 650 mg PO ASDIRECTED PRN PRN Reason: Pain Last Admin: 08/20/17 21:31 Dose: 325 mg Albuterol/Ipratropium (Duoneb 3.0-0.5 Mg/3 Ml) 3 ml INH QID [facility] Last Admin: 08/26/17 07:49 Dose: Not Given Calamine/Phenol (Calmoseptine) 1 gm TOP BID [facility] Last Admin: 08/25/17 20:01 Dose: 1 applic Fentanyl (Duragesic) 50 mcg TRDERM Q72H [facility] Last Admin: 08/24/17 08:58 Dose: 50 mcg Ferrous Sulfate (Ferrous Sulfate) 325 mg PO BIDMEALS [facility] Last Admin: 08/26/17 07:48 Dose: 325 mg Folic Acid (Folic Acid) 1 mg PO DAILY [facility] Last Admin: 08/26/17 07:47 Dose: 1 mg Gabapentin (Neurontin) 300 mg PO TID [facility] Last Admin: 08/26/17 07:46 Dose: 300 mg Hydromorphone HCl (Dilaudid) 1 mg IV DAILY [facility] Last Admin: 08/26/17 09:33 Dose: Not Given Hydromorphone HCl (Dilaudid) 1 mg IVPUSH Q4H PRN PRN Reason: Pain (severe 7-10) Last Admin: 08/26/17 03:30 Dose: 1 mg Piperacillin Sod/Tazobactam (Sod 3.375 gm/ Sodium Chloride) 100 mls @ 100 mls/ hr IV Q6H [facility] Last Admin: 08/26/17 05:34 Dose: 100 mls/hr Sodium Chloride (Normal Saline) 1,000 mls @ 30 mls/hr IV ASDIRECTED [facility] Last Admin: 08/25/17 00:42 Dose: 30 mls/hr Insulin Aspart (Novolog) 0 unit SUBCUT 0800,1200,1700 [facility] PRN Reason: Protocol Last Admin: 08/26/17 07:49 Dose: Not Given Metoprolol Succinate (Toprol Xl) 25 mg PO DAILY [facility] Last Admin: 08/26/17 07:48 Dose: 25 mg Nicotine (Habitrol) 21 mg TRDERM Q24H [facility] Last Admin: 08/25/17 20:02 Dose: 21 mg Omeprazole (Omeprazole) 20 mg PO ACBREAKFAST [facility] Last Admin: 08/26/17 06:20 Dose: 20 mg Oxycodone/Acetaminophen (Percocet 325-5 Mg) 1 tab PO Q4H PRN PRN Reason: Pain Last Admin: 08/26/17 07:47 Dose: 1 tab Senna/Docusate Sodium (Senna Plus) 1 tab PO DAILY [facility] Last Admin: 08/26/17 07:48 Dose: 1 tab Tamsulosin HCl (Flomax) 0.4 mg PO DAILY [facility] Last Admin: 08/26/17 07:46 Dose: 0.4 mg Trazodone HCl (Trazodone) 50 mg PO BEDTIME [facility] Last Admin: 08/25/17 20:01 Dose: 50 mg Discontinued Medications Albuterol/Ipratropium (Duoneb 3.0-0.5 Mg/3 Ml) Confirm Administered Dose 3 ml .ROUTE .STK-MED ONE Stop: 08/23/17 14:43 Last Admin: 08/23/17 15:46 Dose: Not Given Calamine/Phenol (Calmoseptine) Confirm Administered Dose 113 gm TOP .STK-MED ONE Stop: 08/22/17 14:26 Last Admin: 08/22/17 17:27 Dose: 1 applic Clopidogrel Bisulfate (Plavix) 75 mg PO DAILY [facility] Last Admin: 08/20/17 09:23 Dose: Not Given Fentanyl (Duragesic) 25 mcg TRDERM Q72H [facility] Last Admin: 08/18/17 08:41 Dose: 25 mcg Fentanyl (Duragesic) 50 mcg TRDERM Q72H [facility] Furosemide (Lasix) 20 mg IVPUSH ONETIME ONE Stop: 08/21/17 15:07 Last Admin: 08/21/17 15:23 Dose: 20 mg Hydromorphone HCl (Dilaudid) Confirm Administered Dose 2 mg .ROUTE .STK-MED ONE Stop: 08/20/17 10:16 Last Admin: 08/20/17 12:29 Dose: Not Given Hydromorphone HCl (Dilaudid) Confirm Administered Dose 2 mg .ROUTE .STK-MED ONE Stop: 08/20/17 13:14 Last Admin: 08/20/17 14:06 Dose: Not Given Piperacillin Sod/Tazobactam (Sod 3.375 gm/ Sodium Chloride) 100 mls @ 100 mls/ hr IV Q6H [facility] Last Admin: 08/18/17 05:41 Dose: 100 mls/hr Vancomycin HCl 1 gm/Vancomycin HCl 250 mg/ Sodium Chloride 250 mls @ 166.667 mls/hr IV Q12H [facility] Last Admin: 08/18/17 10:05 Dose: Not Given Sodium Chloride (Normal Saline) 1,000 mls @ 75 mls/hr IV ASDIRECTED [facility] Last Admin: 08/17/17 18:55 Dose: 75 mls/hr Piperacillin Sod/Tazobactam (Sod 3.375 gm/ Sodium Chloride) 100 mls @ 100 mls/ hr IV Q6H [facility] Last Admin: 08/18/17 10:05 Dose: Not Given Vancomycin HCl 1 gm/Vancomycin HCl 250 mg/ Sodium Chloride 250 mls @ 166.667 mls/hr IV Q12H [facility] Last Admin: 08/19/17 11:48 Dose: Not Given Insulin Aspart (Novolog) 0 unit SUBCUT TID [facility] PRN Reason: Protocol Last Admin: 08/17/17 20:46 Dose: Not Given Ketorolac Tromethamine (Toradol) 30 mg IVPUSH Q6H PRN PRN Reason: Fever Stop: 08/25/17 22:44 Last Admin: 08/21/17 22:15 Dose: 15 mg Ketorolac Tromethamine (Toradol) Confirm Administered Dose 30 mg .ROUTE .STK- MED ONE Stop: 08/21/17 22:19 Last Admin: 08/21/17 22:52 Dose: Not Given Pneumococcal Polyvalent Vaccine (Pneumovax 23) 0.5 ml IM .ONCE ONE Stop: 08/17/17 18:09 Potassium Chloride (Klor-Con M20) 20 meq PO DAILY [facility] Last Admin: 08/19/17 08:17 Dose: 20 meq Senna/Docusate Sodium (Senna Plus) 1 tab PO DAILY PRN PRN Reason: Constipation Last Admin: 08/21/17 10:41 Dose: 1 tab *Q Meaningful Use (DIS) - VTE *Q VTE Criteria *Q: - Stroke *Q Stroke Criteria *Q: - AMI *Q AMI Criteria *Q:
[2017-08-26] MEDS: Menthol/Zinc Oxide Ointment 113 GM Tube TOP SCH (10:24)
== END 2017-08-26 11:47 | disposition swing bed (61) | DRG 865 ==
LOC: LB.CLINIC 14:04 → UNDOADMIN 16:17 → LB.MS 16:17 → EEVIPCON 16:28 → LB.MS 16:28
PROVIDERS: ADMIT Internal Medicine; ATTEND Internal Medicine
DX: B27.90 Infectious mononucleosis, unspecified without complication (principal); G93.40 Encephalopathy, unspecified; J18.9 Pneumonia, unspecified organism; L97.929 Non-pressure chronic ulcer of unspecified part of left lower leg with unspecified severity; L97.919 Non-pressure chronic ulcer of unspecified part of right lower leg with unspecified severity; D61.818 Other pancytopenia; N17.9 Acute kidney failure, unspecified; E11.622 Type 2 diabetes mellitus with other skin ulcer; E86.0 Dehydration; F17.210 Nicotine dependence, cigarettes, uncomplicated; R91.8 Other nonspecific abnormal finding of lung field; D72.819 Decreased white blood cell count, unspecified; R53.1 Weakness; G89.4 Chronic pain syndrome; D69.6 Thrombocytopenia, unspecified; J44.9 Chronic obstructive pulmonary disease, unspecified; M06.9 Rheumatoid arthritis, unspecified; N18.9 Chronic kidney disease, unspecified; R29.898 Other symptoms and signs involving the musculoskeletal system; D64.9 Anemia, unspecified; Z88.8 Allergy status to other drugs, medicaments and biological substances; R74.0 Nonspecific elevation of levels of transaminase and lactic acid dehydrogenase [LDH]; R94.6 Abnormal results of thyroid function studies; B96.89 Other specified bacterial agents as the cause of diseases classified elsewhere
CPT/HCPCS: 36415; 71020; 71250; 74176; 80048; 80053; 80202; 81001; 82140; 82607; 82962; 83605; 83880; 84439; 84443; 84481; 85025; 85027; 85610; 86644; 86645; 86663; 86664; 86665; 87040; 87070; 87077; 87086; 87088; 87186; 87205; 97110-GP; 97161-GP; 97165-GO; 97166-GO; 97530-GO; 97530-GP; 97535-GO; A9270-GY; J1170; J1885; J1940; J2543; J3370; J7030; J7040; J7050; J7620

== ENCOUNTER 2017-08-26 09:13 | Inpatient (IN) | payer MEDICARE, BC ==
--- NOTE | 2017-08-26 11:07 | PCM.HP ---
H&P History of Present Illness - General Date of Service: 08/26/17 Admit Problem/Dx: Admission Diagnosis/Problem Admission Diagnosis/Problem Weakness of extremity Source of Information: Patient, Family, Old Records History Limitations: Reports: No Limitations - History of Present Illness Initial Comments - Free Text/Narative: This is a 72yo M recently discharged from the hospital for multiple medical concerns and placed in swing bed. He has pancytopenia with concerns of low platelets, low WBC, and anemia. Patient has acute on chronic renal dysfunction and confusion with generalized weakness and sores with pain of the b/l lower extremities. He was diagnosed with possible pneumonia and pending workup of a lung mass. He has improved gradually but does require iv medications, PT/OT, wound care of the lower extremities and continued monitoring and rehab for ADLs. Onset of Symptoms: Reports: Gradual Location: Reports: Generalized 7 Pain Score (Numeric/FACES): 0 - Related Data Allergies/Adverse Reactions: Allergies Allergy/AdvReac Type Severity Reaction Status Date / Time lisinopril AdvReac Cannot Verified 08/26/17 11:50 Remember naproxen AdvReac Cannot Verified 08/26/17 11:50 Remember Home Medications: Home Meds Acetaminophen 650 mg PO Q6HR PRN 08/03/17 [History] Clopidogrel [Plavix] 75 mg PO DAILY 08/03/17 [History] Docusate Sodium/Sennosides [Senna Plus] 1 each PO DAILY PRN 08/03/17 [History] Folic Acid 1 mg PO DAILY 08/03/17 [History] Ipratropium/Albuterol Sulfate [Iprat-Albut 0.5-3(2.5) MG/3 ML] 3 ml IH QPM 08/03 [History] Metoprolol Succinate [Toprol XL] 25 mg PO DAILY 08/03/17 [History] Potassium Chloride 20 meq PO DAILY 08/03/17 [History] traZODone 50 mg PO BEDTIME 08/03/17 [History] Ferrous Sulfate 325 mg PO BIDMEALS #60 tablet 08/06/17 [Rx] Tamsulosin [Flomax] 0.4 mg PO DAILY #30 cap.er 08/06/17 [Rx] Omeprazole 20 mg PO ACBREAKFAST 08/17/17 [History] Albuterol/Ipratropium [DuoNeb 3.0-0.5 MG/3 ML] 3 ml INH QID PRN 08/26/17 [ History] Gabapentin [Neurontin] 300 mg PO TID 08/26/17 [History] Nicotine [Nicoderm CQ] 21 mg TD QPM 08/26/17 [History] fentaNYL [Duragesic] 50 mcg TRDERM Q72H patch 08/26/17 [Rx] oxyCODONE HCl/Acetaminophen [oxyCODONE-Acetaminophen 5-325] 1 tab PO Q4H PRN 10/31 [History] Past Medical History HEENT History: Reports: Impaired Vision Cardiovascular History: Reports: Hypertension Respiratory History: Reports: COPD Hematologic History: Reports: Anemia Dermatologic History: Reports: Decubitus Ulcer, Venous Stasis Dermatitis Social & Family History - Tobacco Use Smoking Status *Q: Current Every Day Smoker Years of Tobacco use: 50 Packs/Tins Daily: 1 - Caffeine Use Caffeine Use: Reports: Coffee - Recreational Drug Use Recreational Drug Use: No H&P Review of Systems - Review of Systems: Review Of Systems: ROS reveals no pertinent complaints other than HPI. Exam - Exam Exam: See Below - Exam General: Alert, Cooperative HEENT: PERRLA, Conjunctiva Clear, EACs Clear, EOMI Neck: Supple, Trachea Midline Lungs: Clear to Auscultation, Normal Respiratory Effort Cardiovascular: Regular Rate, Regular Rhythm GI/Abdominal Exam: Normal Bowel Sounds, Soft, Other (ascites) Back Exam: Normal Inspection Extremities: Normal Inspection Skin: Warm, Dry, Intact, Other (rash/wound of the lower calves b/l) Neurological: Cranial Nerves Intact, Reflexes Equal Bilateral Neuro Extensive - Mental Status: Alert, Disorientation to Time - Patient Data Result Diagrams: 08/30/17 07:10 08/30/17 07:10 *Q Meaningful Use (ADM) - VTE *Q VTE Criteria *Q: - Stroke *Q Stroke Criteria *Q: - AMI *Q AMI Criteria *Q: - Problem List (1) Acute renal failure (ARF) SNOMED Code(s): 79393033 ICD Code: N17.9 - ACUTE KIDNEY FAILURE, UNSPECIFIED Status: Acute Current Visit: No (2) Anemia SNOMED Code(s): 108082774 ICD Code: D64.9 - ANEMIA, UNSPECIFIED Status: Acute Current Visit: No (3) Chronic wound of extremity SNOMED Code(s): 450268860 ICD Code: KCL7311 - Status: Acute Priority: High Current Visit: Yes Problem Details: B/l lower calf wounds and chronic venous stasis dermatitis. We will continue wound cares and pain management for the legs. (4) Elevated AST (SGOT) SNOMED Code(s): 783935045 ICD Code: R74.0 - NONSPEC ELEV OF LEVELS OF TRANSAMNS & LACTIC ACID DEHYDRGNSE Status: Acute Priority: Medium Current Visit: Yes Problem Details: Monitoring liver elevation and will recheck as specified. (5) Elevated TSH SNOMED Code(s): 258856447 ICD Code: R94.6 - ABNORMAL RESULTS OF THYROID FUNCTION STUDIES Status: Acute Priority: Medium Current Visit: Yes Problem Details: Start on levothyroxine and recheck TSH in 8-12wks. (6) Elevated bilirubin SNOMED Code(s): 526654728 ICD Code: R17 - UNSPECIFIED JAUNDICE Status: Acute Priority: Medium Current Visit: Yes Problem Details: Recheck bilirubin as needed. (7) Leg pain, bilateral SNOMED Code(s): 58217118 ICD Code: M79.604 - PAIN IN RIGHT LEG; M79.605 - PAIN IN LEFT LEG Status: Acute Priority: High Current Visit: Yes Problem Details: Pain management for b/l leg pain. Continue percocet and dilauded as directed. (8) Leukopenia SNOMED Code(s): 08149527 ICD Code: D72.819 - DECREASED WHITE BLOOD CELL COUNT, UNSPECIFIED Status: Acute Priority: High Current Visit: Yes Problem Details: Component of pancytopenia. Qualifiers: Leukopenia type: other Qualified Code(s): D72.818 - Other decreased white blood cell count (9) Lung mass SNOMED Code(s): 370997652 ICD Code: R91.8 - OTHER NONSPECIFIC ABNORMAL FINDING OF LUNG FIELD Status: Acute Priority: High Current Visit: Yes Problem Details: Patient has an appointment with pulmonology. We expect a planned biopsy and will plan for follow up. (10) Mononucleosis syndrome SNOMED Code(s): 02868117 ICD Code: B27.90 - INFECTIOUS MONONUCLEOSIS, UNSPECIFIED WITHOUT COMPLICATION Status: Acute Priority: High Current Visit: Yes Problem Details: Recent active or chronic infection. We will continue supportive measures. (11) Pancytopenia SNOMED Code(s): 086076771 ICD Code: D61.818 - OTHER PANCYTOPENIA Status: Acute Priority: High Current Visit: Yes Problem Details: Continue follow up labs for resolution of pancytopenia. (12) Pneumonia SNOMED Code(s): 740101529 ICD Code: J18.9 - PNEUMONIA, UNSPECIFIED ORGANISM Status: Resolved Priority: High Current Visit: Yes Onset Date: 08/03/17 Problem Details: We will continue Zosyn for 1 more day. Symptoms have resolved including fever. WBC normalizing. (13) Thrombocytopenia SNOMED Code(s): 882030938 ICD Code: D69.6 - THROMBOCYTOPENIA, UNSPECIFIED Status: Acute Priority: High Current Visit: Yes Problem Details: Continue labs and monitoring. (14) Weakness of both lower extremities SNOMED Code(s): 2501388 ICD Code: R29.898 - OTH SYMPTOMS AND SIGNS INVOLVING THE MUSCULOSKELETAL SYSTEM Status: Acute Priority: High Current Visit: Yes Problem Details: Continue pain management and control of symptoms. Problem List Initiated/Reviewed/Updated: Yes Orders Last 24hrs: Active Orders 24 hr Category Date Time Status Patient Status [ADT] Routine ADT 08/26/17 11:04 Ordered Oxygen Therapy [RC] PRN Care 08/26/17 11:04 Ordered Up With Assistance [RC] ASDIRECTED Care 08/26/17 11:04 Ordered VTE/DVT Education [RC] Per Unit Routine Care 08/26/17 11:04 Ordered Vital Signs [RC] PER UNIT ROUTINE Care 08/26/17 11:04 Ordered OT Evaluation and Treatment [CONS] Routine Cons 08/26/17 11:04 Ordered PT Evaluation and Treatment [CONS] Routine Cons 08/26/17 11:04 Ordered Resuscitation Status Routine Resus Stat 08/26/17 11:04 Ordered
[2017-08-26] MEDS: Piperacillin/Tazobactam 3.375 GM in Sodium Chloride 0.9% 100 ML IV SCH ×4 (12:33→23:53)
[2017-08-26] MEDS ORDERED: Albuterol/Ipratropium 3.0-0.5 MG/3 ML Neb Soln INH PRN (13:02)
[2017-08-26] MEDS: HYDROmorphone 2 MG/ML Syringe IVPUSH PRN ×2 (14:43→21:05)
[2017-08-26] MEDS: Ferrous Sulfate 325 MG Tab PO SCH (18:08)
[2017-08-26] MEDS: Nicotine 21 MG/24 Hr Patch TRDERM SCH (19:58)
[2017-08-26] MEDS: traZODone 50 MG Tab PO SCH (19:58)
[2017-08-26] MEDS: Gabapentin 300 MG Cap PO SCH (19:58)
[2017-08-26] MEDS ORDERED: Nicotine 7 MG/24 Hr Patch TRDERM SCH (20:00)
[2017-08-26] MEDS ORDERED: Tuberculin, PPD 5 Units/0.1 ML 1 ML MDV IDERM ONE (20:00)
[2017-08-26] MEDS: Albuterol/Ipratropium 3.0-0.5 MG/3 ML Neb Soln INH SCH ×2 (20:03→20:24)
[2017-08-26] MEDS: Menthol/Zinc Oxide Ointment 113 GM Tube TOP SCH (22:19)
[2017-08-27] MEDS: Piperacillin/Tazobactam 3.375 GM in Sodium Chloride 0.9% 100 ML IV SCH ×3 (00:37→05:51)
[2017-08-27] MEDS: HYDROmorphone 2 MG/ML Syringe IVPUSH PRN ×4 (01:10→12:26)
[2017-08-27] MEDS: Omeprazole 20 MG Cap.CR PO SCH (06:09)
[2017-08-27] MEDS: Metoprolol Succinate 25 MG Tab.ER PO SCH (07:42)
[2017-08-27] MEDS: Potassium Chloride 20 MEQ Tab.ER PO SCH (07:48)
[2017-08-27] MEDS: Folic Acid 1 MG Tab PO SCH (07:48)
[2017-08-27] MEDS: Tamsulosin 0.4 MG Cap.ER PO SCH (07:48)
[2017-08-27] MEDS: Gabapentin 300 MG Cap PO SCH ×3 (07:48→20:34)
[2017-08-27] MEDS: Ferrous Sulfate 325 MG Tab PO SCH (07:49)
[2017-08-27] MEDS ORDERED: Clopidogrel 75 MG Tab PO SCH (08:00)
[2017-08-27] MEDS: fentaNYL 50 MCG/HR Transdermal Patch TRDERM SCH (08:26)
[2017-08-27] MEDS: Menthol/Zinc Oxide Ointment 113 GM Tube TOP SCH ×2 (10:00→20:36)
[2017-08-27] MEDS: Albuterol/Ipratropium 3.0-0.5 MG/3 ML Neb Soln INH SCH (20:35)
[2017-08-27] MEDS: Nicotine 21 MG/24 Hr Patch TRDERM SCH (20:35)
[2017-08-27] MEDS: traZODone 50 MG Tab PO SCH (20:35)
[2017-08-28] MEDS: HYDROmorphone 2 MG/ML Syringe IVPUSH PRN ×3 (00:27→19:58)
[2017-08-28] MEDS: Omeprazole 20 MG Cap.CR PO SCH (06:07)
[2017-08-28] MEDS: Ferrous Sulfate 325 MG Tab PO SCH ×3 (07:29→18:31)
[2017-08-28] MEDS: Metoprolol Succinate 25 MG Tab.ER PO SCH (08:02)
[2017-08-28] MEDS: Sodium Chloride 0.9% 10 ML Syringe FLUSH SCH ×2 (08:03→19:57)
[2017-08-28] MEDS: Gabapentin 300 MG Cap PO SCH ×3 (08:04→19:58)
[2017-08-28] MEDS: Folic Acid 1 MG Tab PO SCH (08:04)
[2017-08-28] MEDS: Potassium Chloride 20 MEQ Tab.ER PO SCH (08:04)
[2017-08-28] MEDS: Tamsulosin 0.4 MG Cap.ER PO SCH (08:04)
[2017-08-28] MEDS: Menthol/Zinc Oxide Ointment 113 GM Tube TOP SCH ×2 (08:04→19:59)
[2017-08-28] MEDS: Nicotine 21 MG/24 Hr Patch TRDERM SCH (19:54)
[2017-08-28] MEDS: Albuterol/Ipratropium 3.0-0.5 MG/3 ML Neb Soln INH SCH (19:55)
[2017-08-28] MEDS: Nystatin Topical Powder 15 GM Bottle TOP SCH (19:56)
[2017-08-28] MEDS: traZODone 50 MG Tab PO SCH (19:58)
[2017-08-29] MEDS: HYDROmorphone 2 MG/ML Syringe IVPUSH PRN (01:14)
[2017-08-29] MEDS: Omeprazole 20 MG Cap.CR PO SCH (08:29)
[2017-08-29] MEDS: Gabapentin 300 MG Cap PO SCH ×3 (09:14→19:54)
[2017-08-29] MEDS: Folic Acid 1 MG Tab PO SCH (09:19)
[2017-08-29] MEDS: Metoprolol Succinate 25 MG Tab.ER PO SCH (09:19)
[2017-08-29] MEDS: Ferrous Sulfate 325 MG Tab PO SCH ×2 (09:19→18:35)
[2017-08-29] MEDS: Tamsulosin 0.4 MG Cap.ER PO SCH (09:23)
[2017-08-29] MEDS: Potassium Chloride 20 MEQ Tab.ER PO SCH (09:23)
[2017-08-29] MEDS: Menthol/Zinc Oxide Ointment 113 GM Tube TOP SCH ×2 (09:24→21:19)
[2017-08-29] MEDS: Sodium Chloride 0.9% 10 ML Syringe FLUSH SCH ×2 (09:25→21:18)
[2017-08-29] MEDS: Nystatin Topical Powder 15 GM Bottle TOP SCH ×4 (09:25→19:47)
[2017-08-29] MEDS: Nicotine 21 MG/24 Hr Patch TRDERM SCH (19:47)
[2017-08-29] MEDS: traZODone 50 MG Tab PO SCH (19:54)
[2017-08-29] MEDS: Albuterol/Ipratropium 3.0-0.5 MG/3 ML Neb Soln INH SCH (20:02)
[2017-08-30] MEDS: Gabapentin 300 MG Cap PO SCH (07:48)
[2017-08-30] MEDS: Folic Acid 1 MG Tab PO SCH (07:48)
[2017-08-30] MEDS: Ferrous Sulfate 325 MG Tab PO SCH (07:48)
[2017-08-30] MEDS: Omeprazole 20 MG Cap.CR PO SCH (07:48)
[2017-08-30] MEDS: Tamsulosin 0.4 MG Cap.ER PO SCH (07:48)
[2017-08-30] MEDS: Metoprolol Succinate 25 MG Tab.ER PO SCH (07:49)
[2017-08-30] MEDS: Menthol/Zinc Oxide Ointment 113 GM Tube TOP SCH (07:53)
[2017-08-30] MEDS: Nystatin Topical Powder 15 GM Bottle TOP SCH ×3 (07:54→20:06)
[2017-08-30] MEDS: Sodium Chloride 0.9% 10 ML Syringe FLUSH SCH ×2 (07:55→19:54)
[2017-08-30] MEDS: fentaNYL 50 MCG/HR Transdermal Patch TRDERM SCH (08:06)
--- NOTE | 2017-08-30 09:44 | PCM.PN ---
- General Info Date of Service: 08/30/17 Subjective Update: Patient states he feels fine today but nursing reports some confusion. Patient questioned on date and he cannot recall. He was a little agitated and states he cannot remember and that we are confusing him. He states it is 1973 and then realized that it was not correct and states we were confusing him. Lab reports he was also inappropriate during his draw. He felt he was 52yrs old and his birthdate was 01-29-1917 and then realized the year was wrong but unable to recall. He did know that he was in [place]. Patient denies any pain at this time. He continues to feel weak and tired. Functional Status: Reports: Pain Controlled - Review of Systems General: Reports: Weakness HEENT: Reports: No Symptoms Pulmonary: Reports: No Symptoms Cardiovascular: Reports: No Symptoms Gastrointestinal: Reports: No Symptoms Genitourinary: Reports: Frequency Musculoskeletal: Reports: Leg Pain Skin: Reports: Other (venous stasis dermatitis and ulceration) Neurological: Reports: Confusion - Patient Data Vitals - Most Recent: Last Vital Signs Temp 36.8 C 08/29/17 20:00 Pulse 65 08/30/17 07:49 Resp 15 08/29/17 11:20 BP 104/60 08/30/17 07:49 Pulse Ox 96 08/30/17 05:59 Weight - Most Recent: 84.822 kg I&O - Last 24 Hours: Intake & Output 08/29/17 08/30/17 08/30/17 22:59 06:59 14:59 Intake Total 600 Output Total 1025 800 Balance -1025 -200 Lab Results Last 24 Hours: Laboratory Results - last 24 hr 08/30/17 08/30/17 Range/Units 07:10 07:10 WBC 4.4 (4.0-11.0) K/uL RBC 2.20 L (4.50-6.50) M/uL Hgb 8.4 L (13.0-18.0) g/dL Hct 24.3 L (40.0-54.0) % MCV 111 H (76-96) fL MCH 38.2 H (27.0-32.0) pg MCHC 34.6 (31.0-35.0) g/dL RDW 19.3 H (11.0-16.0) % Plt Count 71 L D (150-400) K/uL MPV 10.2 H (6.0-10.0) fL Neut % (Auto) 56.3 (45.0-70.0) % Lymph % (Auto) 21.3 (20.0-40.0) % Cottle % (Auto) 16.9 H (3.0-10.0) % Eos % (Auto) 4.1 (1.0-5.0) % Baso % (Auto) 1.4 H (0.0-0.5) % Neut # (Auto) 2.46 (2.00-7.50) K/uL Lymph # (Auto) 0.93 L (1.50-4.00) K/uL Cottle # (Auto) 0.74 (0.20-0.80) K/uL Eos # (Auto) 0.18 (0.04-0.40) K/uL Baso # (Auto) 0.06 (0.02-0.10) K/uL Sodium 144 (136-145) mmol/L Potassium 3.6 (3.5-5.1) mmol/L Chloride 110 H (98-107) mmol/L Carbon Dioxide 28.1 (21.0-32.0) mmol/L Anion Gap 9.5 (5.0-15.0) mmol/L BUN 27 H (8-26) mg/dL Creatinine 1.50 H (0.70-1.30) mg/dL Est Cr Clr Drug Dosing 45.96 mL/min Estimated GFR (MDRD) 46 L (>60) MLS/MIN BUN/Creatinine Ratio 18.0 (6-25) Glucose 112 H (74-100) mg/dL Calcium 10.0 (8.5-10.1) mg/dL Total Bilirubin 0.9 (0.0-1.0) mg/dL AST 54 H (15-37) U/L ALT 19 (12-78) U/L Alkaline Phosphatase 110 (46-116) U/L Total Protein 5.4 L (6.4-8.2) g/dL Albumin 1.5 L (3.4-5.0) g/dL Globulin 3.9 (2.2-4.2) g/dL Albumin/Globulin Ratio 0.4 L (0.8-2.0) Med Orders - Current: Current Medications Acetaminophen (Tylenol) 650 mg PO Q6HR PRN PRN Reason: Pain Albuterol/Ipratropium (Duoneb 3.0-0.5 Mg/3 Ml) 3 ml INH QID PRN PRN Reason: Shortness of Breath Last Admin: 08/28/17 19:58 Dose: 3 ml Albuterol/Ipratropium (Duoneb 3.0-0.5 Mg/3 Ml) 3 ml INH QPM [facility] Last Admin: 08/29/17 20:02 Dose: 3 ml Calamine/Phenol (Calmoseptine) 0 gm TOP BID [facility] Last Admin: 08/30/17 07:53 Dose: Not Given Fentanyl (Duragesic) 50 mcg TRDERM Q72H [facility] Last Admin: 08/30/17 08:06 Dose: 50 mcg Ferrous Sulfate (Ferrous Sulfate) 325 mg PO BIDMEALS [facility] Last Admin: 08/30/17 07:48 Dose: 325 mg Folic Acid (Folic Acid) 1 mg PO DAILY [facility] Last Admin: 08/30/17 07:48 Dose: 1 mg Gabapentin (Neurontin) 300 mg PO TID [facility] Last Admin: 08/30/17 07:48 Dose: 300 mg Hydromorphone HCl (Dilaudid) 1 - 2 mg IVPUSH Q4H PRN PRN Reason: Pain Last Admin: 08/29/17 01:14 Dose: 2 mg Levothyroxine Sodium (Levothyroxine) 25 mcg PO ACBREAKFAST [facility] Metoprolol Succinate (Toprol Xl) 25 mg PO DAILY [facility] Last Admin: 08/30/17 07:49 Dose: 25 mg Nicotine (Habitrol) 14 mg TRDERM QPM [facility] Nystatin (Nystop) 0 gm TOP QID [facility] Last Admin: 08/30/17 07:54 Dose: 1 applic Omeprazole (Omeprazole) 20 mg PO ACBREAKFAST [facility] Last Admin: 08/30/17 07:48 Dose: 20 mg Potassium Chloride (Klor-Con M20) 20 meq PO DAILY [facility] Last Admin: 08/29/17 09:23 Dose: Not Given Senna/Docusate Sodium (Senna Plus) 1 tab PO BID [facility] Last Admin: 08/30/17 07:48 Dose: 1 tab Sodium Chloride (Saline Flush) 10 ml FLUSH BID [facility] Last Admin: 08/30/17 07:55 Dose: 10 ml Tamsulosin HCl (Flomax) 0.4 mg PO DAILY [facility] Last Admin: 08/30/17 07:48 Dose: 0.4 mg Trazodone HCl (Trazodone) 50 mg PO BEDTIME [facility] Last Admin: 08/29/17 19:54 Dose: 50 mg Discontinued Medications Clopidogrel Bisulfate (Plavix) 75 mg PO DAILY [facility] Last Admin: 08/27/17 07:48 Dose: 75 mg Hydromorphone HCl (Dilaudid) 1 mg IVPUSH Q4H PRN PRN Reason: Pain Last Admin: 08/27/17 06:43 Dose: 1 mg Piperacillin Sod/Tazobactam (Sod 3.375 gm/ Sodium Chloride) 100 mls @ 100 mls/ hr IV Q6H [facility] Last Admin: 08/26/17 15:23 Dose: Not Given Piperacillin Sod/Tazobactam (Sod 3.375 gm/ Sodium Chloride) 100 mls @ 100 mls/ hr IV Q6H [facility] Last Admin: 08/27/17 05:51 Dose: 100 mls/hr Nicotine (Habitrol) 21 mg TRDERM QPM [facility] Nicotine (Habitrol) 21 mg TRDERM QPM [facility] Last Admin: 08/29/17 19:47 Dose: 21 mg Senna/Docusate Sodium (Senna Plus) 1 tab PO DAILY PRN PRN Reason: Constipation Tuberculin PPD (Aplisol) 5 unit IDERM ONETIME ONE Stop: 08/26/17 20:01 Last Admin: 08/28/17 19:50 Dose: 5 unit - Exam General: Alert, Cooperative HEENT: Pupils Equal, Pupils Reactive, EOMI Neck: Supple Lungs: Clear to Auscultation, Normal Respiratory Effort Cardiovascular: Regular Rate, Regular Rhythm Back Exam: Normal Inspection Extremities: Normal Inspection Peripheral Pulses: 2+: Dorsalis Pedis (L), Dorsalis Pedis (R) Skin: Warm, Dry, Intact, Other (b/l lower calf dermatitis and ulceration(healing )) - Problem List Review Problem List Initiated/Reviewed/Updated: Yes - My Orders Last 24 Hours: My Active Orders 08/30/17 09:38 AMMONIA VENOUS [CHEM] Routine LACTIC ACID [CHEM] Routine 08/30/17 09:39 Nicotine [Habitrol] 14 mg TRDERM QPM 08/30/17 09:40 UA W/MICROSCOPIC [URIN] Routine 08/30/17 09:45 Levothyroxine 25 mcg PO ACBREAKFAST - Plan Plan:: We will continue with wound cares of the legs. We will monitor Dementia and sundowning as a factor to his confusion. Continue current medications and monitor confusion. Pending pulmonology consult. PT and OT for strengthening.
[2017-08-30] MEDS ORDERED: Acetaminophen/oxyCODONE 325-5 MG Tab ONE (10:18)
[2017-08-30] MEDS: Potassium Chloride 20 MEQ Tab.ER PO SCH (10:27)
[2017-08-30] MEDS: Levothyroxine 25 MCG Tab PO SCH (11:31)
[2017-08-30] MEDS ORDERED: Nicotine 14 MG/24 Hr Patch ONE (19:32)
[2017-08-30] MEDS: Nicotine 21 MG/24 Hr Patch TRDERM SCH (19:52)
[2017-08-30] MEDS: traZODone 50 MG Tab PO SCH (19:53)
[2017-08-30] MEDS: Albuterol/Ipratropium 3.0-0.5 MG/3 ML Neb Soln INH SCH (20:01)
[2017-08-31] MEDS: Levothyroxine 25 MCG Tab PO SCH (08:03)
[2017-08-31] MEDS: Ferrous Sulfate 325 MG Tab PO SCH ×3 (08:03→22:13)
[2017-08-31] MEDS: Potassium Chloride 20 MEQ Tab.ER PO SCH (08:03)
[2017-08-31] MEDS: Tamsulosin 0.4 MG Cap.ER PO SCH (08:03)
[2017-08-31] MEDS: Folic Acid 1 MG Tab PO SCH (08:03)
[2017-08-31] MEDS: Omeprazole 20 MG Cap.CR PO SCH (08:03)
[2017-08-31] MEDS: Metoprolol Succinate 25 MG Tab.ER PO SCH ×2 (08:05→09:30)
[2017-08-31] MEDS: Menthol/Zinc Oxide Ointment 113 GM Tube TOP SCH ×2 (09:28→22:13)
[2017-08-31] MEDS: Nystatin Topical Powder 15 GM Bottle TOP SCH ×5 (09:29→22:13)
[2017-08-31] MEDS: Sodium Chloride 0.9% 10 ML Syringe FLUSH SCH ×2 (09:29→19:54)
--- NOTE | 2017-08-31 11:08 | CT ---
DATE OF SERVICE: 08/31/17 CLINICAL DATA: change in mental status UNENHANCED BRAIN CT: Multislice acquisition through the brain without IV contrast was performed. No priors. There is diffuse cerebral atrophy. There are periventricular lucencies bilaterally consistent with small vessel ischemic change. No masses or mass effect. No intracranial hemorrhage. No evidence of acute or subacute infarct. No osseous abnormalities. IMPRESSION: No acute intracranial abnormalities. [id number] [facility]
[2017-08-31] MEDS: HYDROmorphone 2 MG/ML Syringe IVPUSH PRN (19:54)
[2017-08-31] MEDS: traZODone 50 MG Tab PO SCH (19:56)
[2017-08-31] MEDS: Albuterol/Ipratropium 3.0-0.5 MG/3 ML Neb Soln INH SCH (19:56)
[2017-08-31] MEDS ORDERED: Nicotine 14 MG/24 Hr Patch ONE (20:00)
[2017-08-31] MEDS: Nicotine 21 MG/24 Hr Patch TRDERM SCH (20:03)
[2017-08-31] MEDS: Phenazopyridine 100 MG Tab PO PRN (20:11)
[2017-09-01] MEDS: Phenazopyridine 100 MG Tab PO PRN ×2 (04:50→16:00)
[2017-09-01] MEDS: Levothyroxine 25 MCG Tab PO SCH ×2 (06:09→08:00)
[2017-09-01] MEDS: Omeprazole 20 MG Cap.CR PO SCH ×2 (06:09→08:00)
[2017-09-01] MEDS: Ferrous Sulfate 325 MG Tab PO SCH ×3 (08:01→17:23)
[2017-09-01] MEDS: Menthol/Zinc Oxide Ointment 113 GM Tube TOP SCH ×2 (08:01→21:05)
[2017-09-01] MEDS: Tamsulosin 0.4 MG Cap.ER PO SCH ×2 (08:01→15:10)
[2017-09-01] MEDS: Folic Acid 1 MG Tab PO SCH ×2 (08:01→15:10)
[2017-09-01] MEDS: Nystatin Topical Powder 15 GM Bottle TOP SCH ×4 (08:02→21:05)
[2017-09-01] MEDS: Potassium Chloride 20 MEQ Tab.ER PO SCH ×2 (08:02→15:10)
[2017-09-01] MEDS: Sodium Chloride 0.9% 10 ML Syringe FLUSH SCH ×2 (08:02→21:10)
--- NOTE | 2017-09-01 08:50 | PCM.SN ---
- Free Text/Narrative Note: Patient seen today. He does appear to be in a better mood. He was able to state his age was 72yrs despite not knowing the date but then he looked at the calendar and deduced his age from the date. This appears to be his norm the past few days. Last visit he thought he was 52yrs old. We will f/u with later today to discuss plan of care and labs.
[2017-09-01] MEDS: Metoprolol Succinate 25 MG Tab.ER PO SCH (15:08)
[2017-09-01] MEDS: traZODone 50 MG Tab PO SCH (21:05)
[2017-09-01] MEDS: Acetaminophen/oxyCODONE 325-5 MG Tab PO PRN (21:05)
[2017-09-01] MEDS: Nicotine 21 MG/24 Hr Patch TRDERM SCH (21:05)
[2017-09-01] MEDS: Albuterol/Ipratropium 3.0-0.5 MG/3 ML Neb Soln INH SCH (21:05)
[2017-09-01] MEDS: HYDROmorphone 2 MG/ML Syringe IVPUSH PRN (21:15)
[2017-09-02] MEDS: Omeprazole 20 MG Cap.CR PO SCH (07:00)
[2017-09-02] MEDS: Levothyroxine 25 MCG Tab PO SCH (07:00)
[2017-09-02] MEDS: Potassium Chloride 20 MEQ Tab.ER PO SCH (07:12)
[2017-09-02] MEDS: Metoprolol Succinate 25 MG Tab.ER PO SCH (07:12)
[2017-09-02] MEDS: Menthol/Zinc Oxide Ointment 113 GM Tube TOP SCH ×2 (07:13→19:50)
[2017-09-02] MEDS: Ferrous Sulfate 325 MG Tab PO SCH ×2 (07:13→18:44)
[2017-09-02] MEDS: Tamsulosin 0.4 MG Cap.ER PO SCH (07:13)
[2017-09-02] MEDS: Folic Acid 1 MG Tab PO SCH (07:13)
[2017-09-02] MEDS ORDERED: fentaNYL 50 MCG/HR Transdermal Patch ONE (07:17)
[2017-09-02] MEDS: Nystatin Topical Powder 15 GM Bottle TOP SCH ×4 (07:19→19:50)
[2017-09-02] MEDS: fentaNYL 50 MCG/HR Transdermal Patch TRDERM SCH (08:30)
[2017-09-02] MEDS: Phenazopyridine 100 MG Tab PO PRN (09:49)
[2017-09-02] MEDS: Sodium Chloride 0.9% 10 ML Syringe FLUSH SCH ×2 (10:33→19:51)
[2017-09-02] MEDS: HYDROmorphone 2 MG/ML Syringe IVPUSH PRN ×2 (11:17→16:03)
--- NOTE | 2017-09-02 13:05 | PCM.SN ---
- Free Text/Narrative Note: Discussed plan of care with . Discussed continued sores of legs b/l calfs and continued dressing changes daily with monitoring and checks by nursing staff. We will f/u decubitus ulceration of the buttocks. D/c kuhn and start melatonin. D/c trazodone.
[2017-09-02] MEDS: diphenhydrAMINE 50 MG Cap PO PRN (19:49)
[2017-09-02] MEDS: Melatonin 3 MG Tab PO SCH (19:49)
[2017-09-02] MEDS: Nicotine 21 MG/24 Hr Patch TRDERM SCH (19:50)
[2017-09-02] MEDS: Albuterol/Ipratropium 3.0-0.5 MG/3 ML Neb Soln INH SCH (19:50)
[2017-09-03] MEDS: diphenhydrAMINE 50 MG Cap PO PRN (02:00)
[2017-09-03] MEDS: Levothyroxine 25 MCG Tab PO SCH (06:19)
[2017-09-03] MEDS: Omeprazole 20 MG Cap.CR PO SCH (06:19)
[2017-09-03] MEDS: Metoprolol Succinate 25 MG Tab.ER PO SCH (08:00)
[2017-09-03] MEDS: Nystatin Topical Powder 15 GM Bottle TOP SCH ×3 (08:01→23:22)
[2017-09-03] MEDS: Menthol/Zinc Oxide Ointment 113 GM Tube TOP SCH ×2 (08:01→19:21)
[2017-09-03] MEDS: Tamsulosin 0.4 MG Cap.ER PO SCH (08:01)
[2017-09-03] MEDS: Potassium Chloride 20 MEQ Tab.ER PO SCH (08:01)
[2017-09-03] MEDS: Folic Acid 1 MG Tab PO SCH (08:01)
[2017-09-03] MEDS: Ferrous Sulfate 325 MG Tab PO SCH ×2 (08:01→23:20)
[2017-09-03] MEDS: Sodium Chloride 0.9% 10 ML Syringe FLUSH SCH ×2 (08:02→23:20)
[2017-09-03] MEDS ORDERED: Nicotine 14 MG/24 Hr Patch ONE (19:18)
[2017-09-03] MEDS: Melatonin 3 MG Tab PO SCH (19:21)
[2017-09-03] MEDS: Albuterol/Ipratropium 3.0-0.5 MG/3 ML Neb Soln INH SCH (19:21)
[2017-09-03] MEDS: HYDROmorphone 2 MG/ML Syringe IVPUSH PRN (19:22)
[2017-09-03] MEDS: Nicotine 21 MG/24 Hr Patch TRDERM SCH (20:00)
[2017-09-04] MEDS: Levothyroxine 25 MCG Tab PO SCH (07:18)
[2017-09-04] MEDS: Tamsulosin 0.4 MG Cap.ER PO SCH (07:19)
[2017-09-04] MEDS: Potassium Chloride 20 MEQ Tab.ER PO SCH (07:19)
[2017-09-04] MEDS: Gabapentin 300 MG Cap PO SCH ×3 (07:19→19:15)
[2017-09-04] MEDS: Folic Acid 1 MG Tab PO SCH (07:19)
[2017-09-04] MEDS: Metoprolol Succinate 25 MG Tab.ER PO SCH (07:19)
[2017-09-04] MEDS: Omeprazole 20 MG Cap.CR PO SCH (07:19)
[2017-09-04] MEDS: Ferrous Sulfate 325 MG Tab PO SCH ×2 (07:20→16:22)
[2017-09-04] MEDS: Nystatin Topical Powder 15 GM Bottle TOP SCH ×4 (07:20→19:15)
[2017-09-04] MEDS: Menthol/Zinc Oxide Ointment 113 GM Tube TOP SCH ×2 (07:20→19:14)
[2017-09-04] MEDS: Sodium Chloride 0.9% 10 ML Syringe FLUSH SCH ×2 (07:21→19:16)
[2017-09-04] MEDS ORDERED: Magnesium Hydroxide 400 MG/5 ML Susp 30 ML Cup ONE (11:39)
[2017-09-04] MEDS ORDERED: Nicotine 14 MG/24 Hr Patch ONE (19:10)
[2017-09-04] MEDS: Albuterol/Ipratropium 3.0-0.5 MG/3 ML Neb Soln INH SCH (19:13)
[2017-09-04] MEDS: Nicotine 21 MG/24 Hr Patch TRDERM SCH (19:14)
[2017-09-04] MEDS: Melatonin 3 MG Tab PO SCH (19:14)
[2017-09-04] MEDS: HYDROmorphone 2 MG/ML Syringe IVPUSH PRN (19:16)
[2017-09-04] MEDS ORDERED: Gabapentin 300 MG Cap ONE (19:23)
[2017-09-05] MEDS: Folic Acid 1 MG Tab PO SCH (07:59)
[2017-09-05] MEDS: Potassium Chloride 20 MEQ Tab.ER PO SCH (07:59)
[2017-09-05] MEDS: Ferrous Sulfate 325 MG Tab PO SCH ×3 (07:59→20:19)
[2017-09-05] MEDS: Tamsulosin 0.4 MG Cap.ER PO SCH (08:00)
[2017-09-05] MEDS: Metoprolol Succinate 25 MG Tab.ER PO SCH (08:00)
[2017-09-05] MEDS: Levothyroxine 25 MCG Tab PO SCH (08:00)
[2017-09-05] MEDS: Gabapentin 300 MG Cap PO SCH ×3 (08:00→19:01)
[2017-09-05] MEDS: Omeprazole 20 MG Cap.CR PO SCH (08:00)
[2017-09-05] MEDS: Nystatin Topical Powder 15 GM Bottle TOP SCH ×4 (08:01→20:25)
[2017-09-05] MEDS: Menthol/Zinc Oxide Ointment 113 GM Tube TOP SCH ×3 (08:01→20:26)
[2017-09-05] MEDS: Sodium Chloride 0.9% 10 ML Syringe FLUSH SCH ×2 (08:02→20:26)
[2017-09-05] MEDS: fentaNYL 50 MCG/HR Transdermal Patch TRDERM SCH (15:19)
[2017-09-05] MEDS: Albuterol/Ipratropium 3.0-0.5 MG/3 ML Neb Soln INH SCH (19:00)
[2017-09-05] MEDS: Melatonin 3 MG Tab PO SCH (19:00)
[2017-09-05] MEDS: HYDROmorphone 2 MG/ML Syringe IVPUSH PRN (19:03)
[2017-09-05] MEDS ORDERED: Nicotine 14 MG/24 Hr Patch ONE (19:05)
[2017-09-05] MEDS: Nicotine 21 MG/24 Hr Patch TRDERM SCH (20:16)
[2017-09-05] MEDS: diphenhydrAMINE 50 MG Cap PO PRN (22:14)
[2017-09-06] MEDS: Levothyroxine 25 MCG Tab PO SCH (06:28)
[2017-09-06] MEDS: Omeprazole 20 MG Cap.CR PO SCH (06:28)
[2017-09-06] MEDS: Metoprolol Succinate 25 MG Tab.ER PO SCH (09:45)
[2017-09-06] MEDS: Tamsulosin 0.4 MG Cap.ER PO SCH (09:46)
[2017-09-06] MEDS: Ferrous Sulfate 325 MG Tab PO SCH ×2 (09:47→17:53)
[2017-09-06] MEDS: Potassium Chloride 20 MEQ Tab.ER PO SCH (09:47)
[2017-09-06] MEDS: Menthol/Zinc Oxide Ointment 113 GM Tube TOP SCH ×2 (09:48→20:00)
[2017-09-06] MEDS: Folic Acid 1 MG Tab PO SCH (09:48)
[2017-09-06] MEDS: Nystatin Topical Powder 15 GM Bottle TOP SCH ×3 (09:49→19:53)
[2017-09-06] MEDS: Gabapentin 300 MG Cap PO SCH ×3 (09:55→19:51)
[2017-09-06] MEDS: Sodium Chloride 0.9% 10 ML Syringe FLUSH SCH ×2 (10:30→23:41)
[2017-09-06] MEDS: Melatonin 3 MG Tab PO SCH (19:51)
[2017-09-06] MEDS: Albuterol/Ipratropium 3.0-0.5 MG/3 ML Neb Soln INH SCH (19:53)
[2017-09-06] MEDS: Nicotine 21 MG/24 Hr Patch TRDERM SCH (20:02)
[2017-09-06] MEDS: diphenhydrAMINE 50 MG Cap PO PRN (20:23)
[2017-09-07] MEDS: Levothyroxine 25 MCG Tab PO SCH (06:44)
[2017-09-07] MEDS: Omeprazole 20 MG Cap.CR PO SCH (06:44)
[2017-09-07] MEDS: Sodium Chloride 0.9% 10 ML Syringe FLUSH SCH ×2 (07:10→22:42)
[2017-09-07] MEDS: Menthol/Zinc Oxide Ointment 113 GM Tube TOP SCH ×2 (08:23→19:48)
[2017-09-07] MEDS: Nystatin Topical Powder 15 GM Bottle TOP SCH ×6 (08:39→19:48)
[2017-09-07] MEDS: Ferrous Sulfate 325 MG Tab PO SCH ×2 (08:47→17:31)
[2017-09-07] MEDS: Potassium Chloride 20 MEQ Tab.ER PO SCH (08:47)
[2017-09-07] MEDS: Tamsulosin 0.4 MG Cap.ER PO SCH (08:47)
[2017-09-07] MEDS: Metoprolol Succinate 25 MG Tab.ER PO SCH (08:47)
[2017-09-07] MEDS: diphenhydrAMINE 50 MG Cap PO PRN ×2 (08:47→19:49)
[2017-09-07] MEDS: Folic Acid 1 MG Tab PO SCH (08:48)
[2017-09-07] MEDS: Gabapentin 300 MG Cap PO SCH ×3 (08:48→19:50)
[2017-09-07] MEDS: Nicotine 21 MG/24 Hr Patch TRDERM SCH (19:45)
[2017-09-07] MEDS: Albuterol/Ipratropium 3.0-0.5 MG/3 ML Neb Soln INH SCH (19:45)
[2017-09-07] MEDS: Melatonin 3 MG Tab PO SCH (19:47)
[2017-09-07] MEDS: Acetaminophen/oxyCODONE 325-5 MG Tab PO PRN (22:42)
[2017-09-08] MEDS: Levothyroxine 25 MCG Tab PO SCH (06:58)
[2017-09-08] MEDS: Omeprazole 20 MG Cap.CR PO SCH (06:58)
[2017-09-08] MEDS: Folic Acid 1 MG Tab PO SCH (08:09)
[2017-09-08] MEDS: Gabapentin 300 MG Cap PO SCH ×3 (08:09→19:30)
[2017-09-08] MEDS: Potassium Chloride 20 MEQ Tab.ER PO SCH (08:10)
[2017-09-08] MEDS: Metoprolol Succinate 25 MG Tab.ER PO SCH (08:10)
[2017-09-08] MEDS: Tamsulosin 0.4 MG Cap.ER PO SCH (08:10)
[2017-09-08] MEDS: Ferrous Sulfate 325 MG Tab PO SCH ×2 (08:10→18:30)
[2017-09-08] MEDS: Nystatin Topical Powder 15 GM Bottle TOP SCH ×3 (08:13→19:30)
[2017-09-08] MEDS: Menthol/Zinc Oxide Ointment 113 GM Tube TOP SCH ×2 (08:13→19:55)
[2017-09-08] MEDS: Sodium Chloride 0.9% 10 ML Syringe FLUSH SCH ×2 (08:13→22:00)
[2017-09-08] MEDS: fentaNYL 50 MCG/HR Transdermal Patch TRDERM SCH (08:36)
[2017-09-08] MEDS ORDERED: Lidocaine/Prilocaine 2.5-2.5% Crm 5 GM Kit TOP PRN (16:06)
[2017-09-08] MEDS ORDERED: Nicotine 14 MG/24 Hr Patch ONE (19:24)
[2017-09-08] MEDS ORDERED: Lidocaine/Prilocaine 2.5-2.5% Crm 5 GM Tube ONE (19:26)
[2017-09-08] MEDS: diphenhydrAMINE 50 MG Cap PO PRN (19:30)
[2017-09-08] MEDS: Melatonin 3 MG Tab PO SCH (19:30)
[2017-09-08] MEDS: Acetaminophen/oxyCODONE 325-5 MG Tab PO PRN (19:35)
[2017-09-08] MEDS: Nicotine 21 MG/24 Hr Patch TRDERM SCH (20:02)
[2017-09-08] MEDS: Albuterol/Ipratropium 3.0-0.5 MG/3 ML Neb Soln INH SCH (20:05)
[2017-09-09] MEDS: diphenhydrAMINE 50 MG Cap PO PRN (03:22)
[2017-09-09] MEDS: Levothyroxine 25 MCG Tab PO SCH (06:35)
[2017-09-09] MEDS: Omeprazole 20 MG Cap.CR PO SCH (06:36)
[2017-09-09] MEDS: Gabapentin 300 MG Cap PO SCH ×3 (07:42→19:32)
[2017-09-09] MEDS: Potassium Chloride 20 MEQ Tab.ER PO SCH (07:42)
[2017-09-09] MEDS: Ferrous Sulfate 325 MG Tab PO SCH ×4 (07:42→18:40)
[2017-09-09] MEDS: Folic Acid 1 MG Tab PO SCH (07:42)
[2017-09-09] MEDS: Metoprolol Succinate 25 MG Tab.ER PO SCH (07:42)
[2017-09-09] MEDS: Tamsulosin 0.4 MG Cap.ER PO SCH (07:43)
[2017-09-09] MEDS: Nystatin Topical Powder 15 GM Bottle TOP SCH ×4 (07:43→21:12)
[2017-09-09] MEDS: Menthol/Zinc Oxide Ointment 113 GM Tube TOP SCH ×2 (07:43→21:13)
[2017-09-09] MEDS: Sodium Chloride 0.9% 10 ML Syringe FLUSH SCH ×2 (13:26→21:20)
[2017-09-09] MEDS ORDERED: Lidocaine/Prilocaine 2.5-2.5% Crm 5 GM Tube ONE (19:17)
[2017-09-09] MEDS ORDERED: diphenhydrAMINE 50 MG Cap ONE (19:25)
[2017-09-09] MEDS: Acetaminophen/oxyCODONE 325-5 MG Tab PO PRN (19:32)
[2017-09-09] MEDS: Albuterol/Ipratropium 3.0-0.5 MG/3 ML Neb Soln INH SCH (19:36)
[2017-09-09] MEDS ORDERED: Nicotine 14 MG/24 Hr Patch ONE (19:46)
[2017-09-09] MEDS: Melatonin 3 MG Tab PO SCH (21:10)
[2017-09-09] MEDS: Nicotine 21 MG/24 Hr Patch TRDERM SCH (21:13)
[2017-09-10] MEDS: diphenhydrAMINE 50 MG Cap PO PRN ×2 (02:24→20:16)
[2017-09-10] MEDS: Levothyroxine 25 MCG Tab PO SCH (06:52)
[2017-09-10] MEDS: Omeprazole 20 MG Cap.CR PO SCH (06:52)
[2017-09-10] MEDS: Nystatin Topical Powder 15 GM Bottle TOP SCH ×4 (07:47→20:05)
[2017-09-10] MEDS: Gabapentin 300 MG Cap PO SCH ×3 (07:48→20:04)
[2017-09-10] MEDS: Potassium Chloride 20 MEQ Tab.ER PO SCH (07:48)
[2017-09-10] MEDS: Metoprolol Succinate 25 MG Tab.ER PO SCH (07:48)
[2017-09-10] MEDS: Tamsulosin 0.4 MG Cap.ER PO SCH (07:48)
[2017-09-10] MEDS: Ferrous Sulfate 325 MG Tab PO SCH ×2 (07:48→17:37)
[2017-09-10] MEDS: Sodium Chloride 0.9% 10 ML Syringe FLUSH SCH (07:51)
[2017-09-10] MEDS ORDERED: Folic Acid 1 MG Tab ONE (09:18)
[2017-09-10] MEDS: Menthol/Zinc Oxide Ointment 113 GM Tube TOP SCH ×2 (09:18→20:05)
[2017-09-10] MEDS: Folic Acid 1 MG Tab PO SCH (09:19)
[2017-09-10] MEDS ORDERED: Nicotine 14 MG/24 Hr Patch ONE (19:49)
[2017-09-10] MEDS: Nicotine 21 MG/24 Hr Patch TRDERM SCH (20:02)
[2017-09-10] MEDS: Albuterol/Ipratropium 3.0-0.5 MG/3 ML Neb Soln INH SCH (20:03)
[2017-09-10] MEDS: Melatonin 3 MG Tab PO SCH (20:04)
[2017-09-10] MEDS ORDERED: Lidocaine/Prilocaine 2.5-2.5% Crm 5 GM Tube ONE (20:23)
[2017-09-11] MEDS: Levothyroxine 25 MCG Tab PO SCH (06:33)
[2017-09-11] MEDS: Omeprazole 20 MG Cap.CR PO SCH (06:33)
[2017-09-11] MEDS: Gabapentin 300 MG Cap PO SCH ×3 (07:43→19:04)
[2017-09-11] MEDS: Tamsulosin 0.4 MG Cap.ER PO SCH (07:43)
[2017-09-11] MEDS: Potassium Chloride 20 MEQ Tab.ER PO SCH (07:44)
[2017-09-11] MEDS: Metoprolol Succinate 25 MG Tab.ER PO SCH (07:44)
[2017-09-11] MEDS: Ferrous Sulfate 325 MG Tab PO SCH ×2 (07:44→17:57)
[2017-09-11] MEDS: Folic Acid 1 MG Tab PO SCH (07:44)
[2017-09-11] MEDS: Nystatin Topical Powder 15 GM Bottle TOP SCH ×4 (07:44→23:37)
[2017-09-11] MEDS: Menthol/Zinc Oxide Ointment 113 GM Tube TOP SCH ×2 (07:45→23:37)
[2017-09-11] MEDS ORDERED: fentaNYL 50 MCG/HR Transdermal Patch ONE (08:04)
[2017-09-11] MEDS: fentaNYL 50 MCG/HR Transdermal Patch TRDERM SCH (08:07)
[2017-09-11] MEDS: Sodium Chloride 0.9% 10 ML Syringe FLUSH SCH ×3 (08:54→23:38)
[2017-09-11] MEDS: HYDROmorphone 2 MG/ML Syringe IVPUSH PRN (16:40)
[2017-09-11] MEDS: Melatonin 3 MG Tab PO SCH (19:04)
[2017-09-11] MEDS: Nicotine 21 MG/24 Hr Patch TRDERM SCH (19:04)
[2017-09-11] MEDS: Albuterol/Ipratropium 3.0-0.5 MG/3 ML Neb Soln INH SCH (19:07)
[2017-09-12] MEDS: Acetaminophen/oxyCODONE 325-5 MG Tab PO PRN ×2 (01:00→20:01)
[2017-09-12] MEDS: diphenhydrAMINE 50 MG Cap PO PRN ×2 (02:58→20:00)
[2017-09-12] MEDS: Nystatin Topical Powder 15 GM Bottle TOP SCH ×4 (07:17→20:01)
[2017-09-12] MEDS: Potassium Chloride 20 MEQ Tab.ER PO SCH (07:18)
[2017-09-12] MEDS: Ferrous Sulfate 325 MG Tab PO SCH ×2 (07:18→17:31)
[2017-09-12] MEDS: Levothyroxine 25 MCG Tab PO SCH (07:18)
[2017-09-12] MEDS: Omeprazole 20 MG Cap.CR PO SCH (07:18)
[2017-09-12] MEDS: Tamsulosin 0.4 MG Cap.ER PO SCH (07:18)
[2017-09-12] MEDS: Metoprolol Succinate 25 MG Tab.ER PO SCH (07:18)
[2017-09-12] MEDS: Folic Acid 1 MG Tab PO SCH (07:19)
[2017-09-12] MEDS: Gabapentin 300 MG Cap PO SCH ×3 (07:19→20:00)
[2017-09-12] MEDS: Sodium Chloride 0.9% 10 ML Syringe FLUSH SCH ×2 (08:00→20:02)
[2017-09-12] MEDS: Menthol/Zinc Oxide Ointment 113 GM Tube TOP SCH ×2 (09:46→20:02)
[2017-09-12] MEDS: HYDROmorphone 2 MG/ML Syringe IVPUSH PRN (15:34)
[2017-09-12] MEDS: Melatonin 3 MG Tab PO SCH (20:00)
[2017-09-12] MEDS: Acetaminophen 325 MG Tab PO PRN (20:00)
[2017-09-12] MEDS: Albuterol/Ipratropium 3.0-0.5 MG/3 ML Neb Soln INH SCH (20:01)
[2017-09-12] MEDS: Nicotine 21 MG/24 Hr Patch TRDERM SCH (20:01)
[2017-09-13] MEDS: Levothyroxine 25 MCG Tab PO SCH (06:01)
[2017-09-13] MEDS: Omeprazole 20 MG Cap.CR PO SCH (06:01)
[2017-09-13] MEDS: Gabapentin 300 MG Cap PO SCH ×3 (07:31→19:38)
[2017-09-13] MEDS: Ferrous Sulfate 325 MG Tab PO SCH ×2 (07:31→16:59)
[2017-09-13] MEDS: Folic Acid 1 MG Tab PO SCH (07:31)
[2017-09-13] MEDS: Metoprolol Succinate 25 MG Tab.ER PO SCH (07:31)
[2017-09-13] MEDS: Tamsulosin 0.4 MG Cap.ER PO SCH (07:31)
[2017-09-13] MEDS: Potassium Chloride 20 MEQ Tab.ER PO SCH (07:31)
[2017-09-13] MEDS: Menthol/Zinc Oxide Ointment 113 GM Tube TOP SCH ×2 (07:34→19:41)
[2017-09-13] MEDS: Nystatin Topical Powder 15 GM Bottle TOP SCH ×4 (07:34→19:41)
[2017-09-13] MEDS: Sodium Chloride 0.9% 10 ML Syringe FLUSH SCH (14:23)
[2017-09-13] MEDS ORDERED: traZODone 50 MG Tab ONE (19:33)
[2017-09-13] MEDS: traZODone 50 MG Tab PO ONE (19:37)
[2017-09-13] MEDS: Acetaminophen/oxyCODONE 325-5 MG Tab PO PRN (19:38)
[2017-09-13] MEDS: diphenhydrAMINE 50 MG Cap PO PRN (19:38)
[2017-09-13] MEDS: Melatonin 3 MG Tab PO SCH (19:39)
[2017-09-13] MEDS: Acetaminophen 325 MG Tab PO PRN (19:40)
[2017-09-13] MEDS: Albuterol/Ipratropium 3.0-0.5 MG/3 ML Neb Soln INH SCH (19:41)
[2017-09-13] MEDS: Nicotine 21 MG/24 Hr Patch TRDERM SCH (19:41)
[2017-09-14] MEDS: Sodium Chloride 0.9% 10 ML Syringe FLUSH SCH ×3 (06:01→19:35)
[2017-09-14] MEDS: Levothyroxine 25 MCG Tab PO SCH (06:02)
[2017-09-14] MEDS: Omeprazole 20 MG Cap.CR PO SCH (06:02)
[2017-09-14] MEDS: Ferrous Sulfate 325 MG Tab PO SCH ×2 (07:34→17:45)
[2017-09-14] MEDS: Menthol/Zinc Oxide Ointment 113 GM Tube TOP SCH ×2 (07:34→19:36)
[2017-09-14] MEDS: Nystatin Topical Powder 15 GM Bottle TOP SCH ×4 (07:35→19:35)
[2017-09-14] MEDS: Folic Acid 1 MG Tab PO SCH (07:35)
[2017-09-14] MEDS: Potassium Chloride 20 MEQ Tab.ER PO SCH (07:35)
[2017-09-14] MEDS: Tamsulosin 0.4 MG Cap.ER PO SCH (07:35)
[2017-09-14] MEDS: Gabapentin 300 MG Cap PO SCH ×3 (07:35→19:35)
[2017-09-14] MEDS: Metoprolol Succinate 25 MG Tab.ER PO SCH (07:35)
[2017-09-14] MEDS: fentaNYL 50 MCG/HR Transdermal Patch TRDERM SCH (09:48)
--- NOTE | 2017-09-14 15:55 | PCM.PN ---
- General Info Date of Service: 09/13/17 Subjective Update: This is a 72yo M in good spirits and feeling well. He continues to have trouble recalling the dates and likely this has been a chronic issue but patient easily reads the calendar and recalls the month and year. He has been doing well with physical therapy and will continue with discharge planning. Patient denies any issues or concerns today. Functional Status: Reports: Pain Controlled - Review of Systems General: Reports: Weakness HEENT: Reports: No Symptoms Pulmonary: Reports: No Symptoms Cardiovascular: Reports: No Symptoms Gastrointestinal: Reports: No Symptoms Genitourinary: Reports: No Symptoms Musculoskeletal: Reports: No Symptoms Skin: Reports: No Symptoms Neurological: Reports: Confusion Psychiatric: Reports: No Symptoms - Patient Data Vitals - Most Recent: Last Vital Signs Temp 36.8 C 09/14/17 08:00 Pulse 66 09/14/17 08:00 Resp 18 09/14/17 08:00 BP 124/66 09/14/17 08:00 Pulse Ox 98 09/14/17 08:00 Weight - Most Recent: 80.966 kg Lab Results Last 24 Hours: Laboratory Results - last 24 hr 09/03/17 09/14/17 09/14/17 Range/Units 10:15 07:15 07:15 WBC 2.9 L (4.0-11.0) K/uL RBC 2.15 L (4.50-6.50) M/uL Hgb 8.2 L (13.0-18.0) g/dL Hct 24.2 L (40.0-54.0) % MCV 113 H (76-96) fL MCH 38.1 H (27.0-32.0) pg MCHC 33.9 (31.0-35.0) g/dL RDW 15.4 (11.0-16.0) % Plt Count 90 L D (150-400) K/uL MPV 9.8 (6.0-10.0) fL Neut % (Auto) 57.4 (45.0-70.0) % Lymph % (Auto) 23.1 (20.0-40.0) % [place] % (Auto) 12.9 H (3.0-10.0) % Eos % (Auto) 5.6 H (1.0-5.0) % Baso % (Auto) 1.0 H (0.0-0.5) % Neut # (Auto) 1.64 L (2.00-7.50) K/uL Lymph # (Auto) 0.66 L (1.50-4.00) K/uL [place] # (Auto) 0.37 (0.20-0.80) K/uL Eos # (Auto) 0.16 (0.04-0.40) K/uL Baso # (Auto) 0.03 (0.02-0.10) K/uL Sodium 140 (136-145) mmol/L Potassium 3.6 (3.5-5.1) mmol/L Chloride 107 (98-107) mmol/L Carbon Dioxide 23.9 (21.0-32.0) mmol/L Anion Gap 12.7 (5.0-15.0) mmol/L BUN 11 D (8-26) mg/dL Creatinine 1.18 (0.70-1.30) mg/dL Est Cr Clr Drug Dosing 58.43 mL/min Estimated GFR (MDRD) > 60 (>60) MLS/MIN BUN/Creatinine Ratio 9.3 (6-25) Glucose 112 H (74-100) mg/dL Calcium 8.0 L (8.5-10.1) mg/dL Total Bilirubin 0.5 D (0.0-1.0) mg/dL AST 34 (15-37) U/L ALT 13 (12-78) U/L Alkaline Phosphatase 140 H (46-116) U/L Total Protein 6.4 (6.4-8.2) g/dL Albumin 1.7 L (3.4-5.0) g/dL Globulin 4.7 H (2.2-4.2) g/dL Albumin/Globulin Ratio 0.4 L (0.8-2.0) Gel Antibody Screen Negative Crossmatch See Detail Med Orders - Current: Current Medications Acetaminophen (Tylenol) 650 mg PO Q6HR PRN PRN Reason: Pain Last Admin: 09/13/17 19:40 Dose: 650 mg Albuterol/Ipratropium (Duoneb 3.0-0.5 Mg/3 Ml) 3 ml INH QID PRN PRN Reason: Shortness of Breath Last Admin: 08/28/17 19:58 Dose: 3 ml Albuterol/Ipratropium (Duoneb 3.0-0.5 Mg/3 Ml) [address] [facility] Last Admin: 09/13/17 19:41 Dose: Not Given Calamine/Phenol (Calmoseptine) [address] [facility] Last Admin: 09/14/17 07:34 Dose: 1 applic Diphenhydramine HCl (Benadryl) 50 mg PO Q6H PRN PRN Reason: Rash Last Admin: 09/13/17 19:38 Dose: 50 mg Fentanyl (Duragesic) [address] [facility] Last Admin: 09/14/17 09:48 Dose: 50 mcg Ferrous Sulfate (Ferrous Sulfate) [address] [facility] Last Admin: 09/14/17 07:34 Dose: 325 mg Folic Acid (Folic Acid) [address] [facility] Last Admin: 09/14/17 07:35 Dose: 1 mg Gabapentin (Neurontin) [address] [facility] Last Admin: 09/14/17 14:41 Dose: 300 mg Hydromorphone HCl (Dilaudid) 1 - 2 mg IVPUSH Q4H PRN PRN Reason: Pain Last Admin: 09/12/17 15:34 Dose: 1 mg Levothyroxine Sodium (Levothyroxine) [address] [facility] Last Admin: 09/14/17 06:02 Dose: 25 mcg Lidocaine/Prilocaine (Emla Crm) 5 gm TOP BID PRN PRN Reason: WOUNDS Last Admin: 09/08/17 19:35 Dose: 1 applic Melatonin (Melatonin) [address] [facility] Last Admin: 09/13/17 19:39 Dose: 6 mg Metoprolol Succinate (Toprol Xl) [address] [facility] Last Admin: 09/14/17 07:35 Dose: 25 mg Nicotine (Habitrol) [address] [facility] Last Admin: 09/13/17 19:41 Dose: 14 mg Nystatin (Nystop) [address] [facility] Last Admin: 09/14/17 14:07 Dose: Not Given Omeprazole (Omeprazole) [address] [facility] Last Admin: 09/14/17 06:02 Dose: 20 mg Oxycodone/Acetaminophen (Percocet 325-5 Mg) 1 tab PO Q4H PRN PRN Reason: Pain Last Admin: 09/13/17 19:38 Dose: 1 tab Potassium Chloride (Klor-Con M20) [address] [facility] Last Admin: 09/14/17 07:35 Dose: 20 meq Senna/Docusate Sodium (Senna Plus) [address] [facility] Last Admin: 09/14/17 07:35 Dose: 1 tab Sodium Chloride (Saline Flush) [address] [facility] Last Admin: 09/14/17 07:38 Dose: Not Given Tamsulosin HCl (Flomax) 0.[address] [facility] Last Admin: 09/14/17 07:35 Dose: 0.4 mg Discontinued Medications Clopidogrel Bisulfate (Plavix) [address] [facility] Last Admin: 08/27/17 07:48 Dose: 75 mg Diphenhydramine HCl (Benadryl) Confirm Administered Dose 50 mg .ROUTE .STK-MED ONE Stop: 09/09/17 19:26 Last Admin: 09/09/17 21:10 Dose: 50 mg Fentanyl (Duragesic) Confirm Administered Dose 50 mcg .ROUTE .STK-MED ONE Stop: 09/02/17 07:18 Last Admin: 09/02/17 07:34 Dose: Not Given Fentanyl (Duragesic) Confirm Administered Dose 50 mcg .ROUTE .STK-MED ONE Stop: 09/11/17 08:05 Last Admin: 09/11/17 08:07 Dose: Not Given Folic Acid (Folic Acid) Confirm Administered Dose 1 mg .ROUTE .STK-MED ONE Stop: 09/10/17 09:19 Last Admin: 09/10/17 10:20 Dose: Not Given Gabapentin (Neurontin) Confirm Administered Dose 300 mg .ROUTE .STK-MED ONE Stop: 09/04/17 19:24 Last Admin: 09/04/17 22:31 Dose: Not Given Hydromorphone HCl (Dilaudid) 1 mg IVPUSH Q4H PRN PRN Reason: Pain Last Admin: 08/27/17 06:43 Dose: 1 mg Piperacillin Sod/Tazobactam (Sod 3.375 gm/ Sodium Chloride) 100 mls @ 100 mls/ hr IV Q6H [facility] Last Admin: 08/26/17 15:23 Dose: Not Given Piperacillin Sod/Tazobactam (Sod 3.375 gm/ Sodium Chloride) 100 mls @ 100 mls/ hr IV Q6H [facility] Last Admin: 08/27/17 05:51 Dose: 100 mls/hr Lidocaine/Prilocaine (Emla Crm) Confirm Administered Dose 5 gm .ROUTE .STK-MED ONE Stop: 09/08/17 19:27 Last Admin: 09/08/17 19:42 Dose: Not Given Lidocaine/Prilocaine (Emla Crm) Confirm Administered Dose 5 gm .ROUTE .STK-MED ONE Stop: 09/09/17 19:18 Last Admin: 09/09/17 21:10 Dose: 1 applic Lidocaine/Prilocaine (Emla Crm) Confirm Administered Dose 5 gm .ROUTE .STK-MED ONE Stop: 09/10/17 20:24 Last Admin: 09/11/17 08:54 Dose: Not Given Magnesium Hydroxide (Milk Of Magnesia) Confirm Administered Dose 30 ml .ROUTE .STK-MED ONE Stop: 09/04/17 11:40 Last Admin: 09/04/17 12:25 Dose: 30 ml Nicotine (Habitrol) 21 mg TRDERM QPM [facility] Nicotine (Habitrol) 21 mg TRDERM QPM [facility] Last Admin: 08/29/17 19:47 Dose: 21 mg Nicotine (Habitrol) Confirm Administered Dose 14 mg .ROUTE .STK-MED ONE Stop: 08/30/17 19:33 Last Admin: 08/31/17 09:28 Dose: Not Given Nicotine (Habitrol) Confirm Administered Dose 14 mg .ROUTE .STK-MED ONE Stop: 08/31/17 20:01 Last Admin: 08/31/17 20:25 Dose: Not Given Nicotine (Habitrol) Confirm Administered Dose 14 mg .ROUTE .STK-MED ONE Stop: 09/03/17 19:19 Last Admin: 09/03/17 23:19 Dose: Not Given Nicotine (Habitrol) Confirm Administered Dose 14 mg .ROUTE .STK-MED ONE Stop: 09/04/17 19:11 Last Admin: 09/04/17 19:15 Dose: Not Given Nicotine (Habitrol) Confirm Administered Dose 14 mg .ROUTE .STK-MED ONE Stop: 09/05/17 19:06 Last Admin: 09/05/17 20:16 Dose: Not Given Nicotine (Habitrol) Confirm Administered Dose 14 mg .ROUTE .STK-MED ONE Stop: 09/08/17 19:25 Last Admin: 09/08/17 19:31 Dose: 14 mg Nicotine (Habitrol) Confirm Administered Dose 14 mg .ROUTE .STK-MED ONE Stop: 09/09/17 19:47 Last Admin: 09/09/17 21:11 Dose: 14 mg Nicotine (Habitrol) Confirm Administered Dose 14 mg .ROUTE .STK-MED ONE Stop: 09/10/17 19:50 Last Admin: 09/10/17 20:01 Dose: 14 mg Oxycodone/Acetaminophen (Percocet 325-5 Mg) Confirm Administered Dose 1 tab .ROUTE .STK-MED ONE Stop: 08/30/17 10:19 Last Admin: 08/30/17 10:27 Dose: 1 tab Phenazopyridine HCl (Pyridium) 100 mg PO Q8HR PRN PRN Reason: Other Last Admin: 09/02/17 09:49 Dose: 100 mg Senna/Docusate Sodium (Senna Plus) 1 tab PO DAILY PRN PRN Reason: Constipation Trazodone HCl (Trazodone) 50 mg PO BEDTIME [facility] Last Admin: 09/01/17 21:05 Dose: 50 mg Trazodone HCl (Trazodone) 50 mg PO ONETIME ONE Stop: 09/13/17 17:06 Last Admin: 09/13/17 19:37 Dose: 50 mg Trazodone HCl (Trazodone) Confirm Administered Dose 50 mg .ROUTE .STK-MED ONE Stop: 09/13/17 19:34 Last Admin: 09/13/17 19:36 Dose: Not Given Tuberculin PPD (Aplisol) 5 unit IDERM ONETIME ONE Stop: 08/26/17 20:01 Last Admin: 08/28/17 19:50 Dose: 5 unit - Exam General: Alert, Cooperative HEENT: Pupils Equal, Pupils Reactive, EOMI Neck: Supple Lungs: Clear to Auscultation, Normal Respiratory Effort Cardiovascular: Regular Rate, Regular Rhythm Back Exam: Normal Inspection Extremities: Other (lower b/l leg venous stasis dermatitis and some healing ulcerations) Skin: Warm, Dry, Intact Neurological: No New Focal Deficit Psy/Mental Status: Alert, Normal Affect, Normal Mood - Problem List & Annotations (1) Acute renal failure (ARF) SNOMED Code(s): 16766488 Code(s): N17.9 - ACUTE KIDNEY FAILURE, UNSPECIFIED Status: Chronic Current Visit: No (2) Anemia SNOMED Code(s): 175627706 Code(s): D64.9 - ANEMIA, UNSPECIFIED Status: Chronic Current Visit: No (3) Chronic wound of extremity SNOMED Code(s): 746094584 Code(s): JUZ3309 - Status: Chronic Priority: High Current Visit: Yes Annotation/Comment:: B/l lower calf wounds and chronic venous stasis dermatitis. We will continue wound cares and pain management for the legs. (4) Elevated AST (SGOT) SNOMED Code(s): 366137501 Code(s): R74.0 - NONSPEC ELEV OF LEVELS OF TRANSAMNS & LACTIC ACID DEHYDRGNSE Status: Chronic Priority: Medium Current Visit: Yes Annotation/Comment:: Monitoring liver elevation and will recheck as specified. (5) Elevated TSH SNOMED Code(s): 012052169 Code(s): R94.6 - ABNORMAL RESULTS OF THYROID FUNCTION STUDIES Status: Chronic Priority: Medium Current Visit: Yes Annotation/Comment:: Start on levothyroxine and recheck TSH in 8-12wks. (6) Elevated bilirubin SNOMED Code(s): 967145381 Code(s): R17 - UNSPECIFIED JAUNDICE Status: Chronic Priority: Medium Current Visit: Yes Annotation/Comment:: Recheck bilirubin as needed. (7) Leg pain, bilateral SNOMED Code(s): 46347286 Code(s): M79.604 - PAIN IN RIGHT LEG; M79.605 - PAIN IN LEFT LEG Status: Chronic Priority: High Current Visit: Yes Annotation/Comment:: Pain management for b/l leg pain. Continue percocet and dilauded as directed. (8) Leukopenia SNOMED Code(s): 29000191 Code(s): D72.819 - DECREASED WHITE BLOOD CELL COUNT, UNSPECIFIED Status: Chronic Priority: High Current Visit: Yes Qualifiers: Leukopenia type: other Qualified Code(s): D72.818 - Other decreased white blood cell count Annotation/Comment:: Component of pancytopenia. (9) Lung mass SNOMED Code(s): 514383446 Code(s): R91.8 - OTHER NONSPECIFIC ABNORMAL FINDING OF LUNG FIELD Status: Chronic Priority: High Current Visit: Yes Annotation/Comment:: Patient has an appointment with pulmonology. We expect a planned biopsy and will plan for follow up. (10) Mononucleosis syndrome SNOMED Code(s): 71648553 Code(s): B27.90 - INFECTIOUS MONONUCLEOSIS, UNSPECIFIED WITHOUT COMPLICATION Status: Acute Priority: High Current Visit: Yes Annotation/Comment:: Recent active or chronic infection. We will continue supportive measures. (11) Pancytopenia SNOMED Code(s): 887950960 Code(s): D61.818 - OTHER PANCYTOPENIA Status: Resolved Priority: High Current Visit: Yes Annotation/Comment:: Continue follow up labs for resolution of pancytopenia. (12) Pneumonia SNOMED Code(s): 591667488 Code(s): J18.9 - PNEUMONIA, UNSPECIFIED ORGANISM Status: Resolved Priority: High Current Visit: Yes Onset Date: 08/03/17 Annotation/Comment: : We will continue Zosyn for 1 more day. Symptoms have resolved including fever. WBC normalizing. (13) Thrombocytopenia SNOMED Code(s): 125086503 Code(s): D69.6 - THROMBOCYTOPENIA, UNSPECIFIED Status: Acute Priority: High Current Visit: Yes Annotation/Comment:: Continue labs and monitoring. (14) Weakness of both lower extremities SNOMED Code(s): 0865229 Code(s): R29.898 - [facility] SYMPTOMS AND SIGNS INVOLVING THE MUSCULOSKELETAL SYSTEM Status: Acute Priority: High Current Visit: Yes Annotation/ Comment:: Continue pain management and control of symptoms. - Problem List Review Problem List Initiated/Reviewed/Updated: Yes - My Orders Last 24 Hours: My Active Orders 09/14/17 15:51 Ready for Discharge [RC] PER UNIT ROUTINE - Plan Plan:: Continued planning for discharge. Follow up Care conference and discharge medication management.
[2017-09-14] MEDS ORDERED: traZODone 50 MG Tab ONE (19:24)
[2017-09-14] MEDS: diphenhydrAMINE 50 MG Cap PO PRN (19:34)
[2017-09-14] MEDS: traZODone 50 MG Tab PO ONE (19:34)
[2017-09-14] MEDS: Acetaminophen 325 MG Tab PO PRN (19:34)
[2017-09-14] MEDS: Melatonin 3 MG Tab PO SCH (19:34)
[2017-09-14] MEDS: Nicotine 21 MG/24 Hr Patch TRDERM SCH (19:35)
[2017-09-14] MEDS: Albuterol/Ipratropium 3.0-0.5 MG/3 ML Neb Soln INH SCH (19:35)
[2017-09-14] MEDS: Acetaminophen/oxyCODONE 325-5 MG Tab PO PRN (19:36)
[2017-09-15] MEDS: Levothyroxine 25 MCG Tab PO SCH (07:40)
[2017-09-15] MEDS: Gabapentin 300 MG Cap PO SCH (07:40)
[2017-09-15] MEDS: Potassium Chloride 20 MEQ Tab.ER PO SCH (07:41)
[2017-09-15] MEDS: Metoprolol Succinate 25 MG Tab.ER PO SCH (07:41)
[2017-09-15] MEDS: Folic Acid 1 MG Tab PO SCH (07:41)
[2017-09-15] MEDS: Ferrous Sulfate 325 MG Tab PO SCH (07:41)
[2017-09-15] MEDS: Omeprazole 20 MG Cap.CR PO SCH (07:41)
[2017-09-15] MEDS: Tamsulosin 0.4 MG Cap.ER PO SCH (07:41)
[2017-09-15 07:42] VITALS: BP 118/60
[2017-09-15] MEDS: Nystatin Topical Powder 15 GM Bottle TOP SCH (07:43)
[2017-09-15] MEDS: Menthol/Zinc Oxide Ointment 113 GM Tube TOP SCH (07:43)
[2017-09-15] MEDS: Sodium Chloride 0.9% 10 ML Syringe FLUSH SCH (07:43)
--- NOTE | 2017-09-15 11:01 | PCM.DCSUM1 ---
Discharge Summary - Discharge Data Discharge Date: 09/15/17 Discharge Disposition: Home, Self-Care 01 Condition: Good - Discharge Diagnosis/Problem(s) (1) Acute renal failure (ARF) SNOMED Code(s): 60091349 ICD Code: N17.9 - ACUTE KIDNEY FAILURE, UNSPECIFIED Status: Chronic Current Visit: No (2) Anemia SNOMED Code(s): 673098204 ICD Code: D64.9 - ANEMIA, UNSPECIFIED Status: Chronic Current Visit: No (3) Chronic wound of extremity SNOMED Code(s): 009584423 ICD Code: NNU1829 - Status: Chronic Priority: High Current Visit: Yes Problem Details: B/l lower calf wounds and chronic venous stasis dermatitis. We will continue wound cares and pain management for the legs. (4) Elevated AST (SGOT) SNOMED Code(s): 568143530 ICD Code: R74.0 - NONSPEC ELEV OF LEVELS OF TRANSAMNS & LACTIC ACID DEHYDRGNSE Status: Chronic Priority: Medium Current Visit: Yes Problem Details: Monitoring liver elevation and will recheck as specified. (5) Elevated TSH SNOMED Code(s): 917652313 ICD Code: R94.6 - ABNORMAL RESULTS OF THYROID FUNCTION STUDIES Status: Chronic Priority: Medium Current Visit: Yes Problem Details: Start on levothyroxine and recheck TSH in 8-12wks. (6) Elevated bilirubin SNOMED Code(s): 562295383 ICD Code: R17 - UNSPECIFIED JAUNDICE Status: Chronic Priority: Medium Current Visit: Yes Problem Details: Recheck bilirubin as needed. (7) Leg pain, bilateral SNOMED Code(s): 99713673 ICD Code: M79.604 - PAIN IN RIGHT LEG; M79.605 - PAIN IN LEFT LEG Status: Chronic Priority: High Current Visit: Yes Problem Details: Pain management for b/l leg pain. Continue percocet and dilauded as directed. (8) Leukopenia SNOMED Code(s): 39360452 ICD Code: D72.819 - DECREASED WHITE BLOOD CELL COUNT, UNSPECIFIED Status: Chronic Priority: High Current Visit: Yes Problem Details: Component of pancytopenia. Qualifiers: Leukopenia type: other Qualified Code(s): D72.818 - Other decreased white blood cell count (9) Lung mass SNOMED Code(s): 806498773 ICD Code: R91.8 - OTHER NONSPECIFIC ABNORMAL FINDING OF LUNG FIELD Status: Chronic Priority: High Current Visit: Yes Problem Details: Patient has an appointment with pulmonology. We expect a planned biopsy and will plan for follow up. (10) Mononucleosis syndrome SNOMED Code(s): 96855823 ICD Code: B27.90 - INFECTIOUS MONONUCLEOSIS, UNSPECIFIED WITHOUT COMPLICATION Status: Acute Priority: High Current Visit: Yes Problem Details: Recent active or chronic infection. We will continue supportive measures. (11) Pancytopenia SNOMED Code(s): 106394328 ICD Code: D61.818 - OTHER PANCYTOPENIA Status: Resolved Priority: High Current Visit: Yes Problem Details: Continue follow up labs for resolution of pancytopenia. (12) Pneumonia SNOMED Code(s): 274857745 ICD Code: J18.9 - PNEUMONIA, UNSPECIFIED ORGANISM Status: Resolved Priority: High Current Visit: Yes Onset Date: 08/03/17 Problem Details: We will continue Zosyn for 1 more day. Symptoms have resolved including fever. WBC normalizing. (13) Thrombocytopenia SNOMED Code(s): 702815841 ICD Code: D69.6 - THROMBOCYTOPENIA, UNSPECIFIED Status: Acute Priority: High Current Visit: Yes Problem Details: Continue labs and monitoring. (14) Weakness of both lower extremities SNOMED Code(s): 8152747 ICD Code: R29.898 - [facility] SYMPTOMS AND SIGNS INVOLVING THE MUSCULOSKELETAL SYSTEM Status: Acute Priority: High Current Visit: Yes Problem Details: Continue pain management and control of symptoms. - Patient Summary/Data Consults: Consultations 08/26/17 11:04 OT Evaluation and Treatment [CONS] Routine Please Evaluate and Treat. OT Reason for Consult: ADL's This query below is only for informational purposes and is not editable. PT Evaluation and Treatment [CONS] Routine Please Evaluate and Treat. PT Reason for Consult: Ambulation This query below is only for informational purposes and is not editable. - Patient Instructions Diet: Heart Healthy Diet Activity: As Tolerated Driving: Do Not Drive - Discharge Plan Prescriptions/Med Rec: Levothyroxine 25 mcg PO ACBREAKFAST 90 Days #90 tablet Home Medications: Home Meds Acetaminophen 650 mg PO Q6HR PRN 08/03/17 [History] Clopidogrel [Plavix] 75 mg PO DAILY 08/03/17 [History] Docusate Sodium/Sennosides [Senna Plus] 1 each PO DAILY PRN 08/03/17 [History] Folic Acid 1 mg PO DAILY 08/03/17 [History] Ipratropium/Albuterol Sulfate [Iprat-Albut 0.5-3(2.5) MG/3 ML] 3 ml IH QPM 08/03 [History] Metoprolol Succinate [Toprol XL] 25 mg PO DAILY 08/03/17 [History] Potassium Chloride 20 meq PO DAILY 08/03/17 [History] traZODone 50 mg PO BEDTIME 08/03/17 [History] Ferrous Sulfate 325 mg PO BIDMEALS #60 tablet 08/06/17 [Rx] Tamsulosin [Flomax] 0.4 mg PO DAILY #30 cap.er 08/06/17 [Rx] Omeprazole 20 mg PO ACBREAKFAST 08/17/17 [History] Albuterol/Ipratropium [DuoNeb 3.0-0.5 MG/3 ML] 3 ml INH QID PRN 08/26/17 [ History] Gabapentin [Neurontin] 300 mg PO TID 08/26/17 [History] Nicotine [Nicoderm CQ] 21 mg TD QPM 08/26/17 [History] fentaNYL [Duragesic] 50 mcg TRDERM Q72H patch 08/26/17 [Rx] oxyCODONE HCl/Acetaminophen [oxyCODONE-Acetaminophen 5-325] 1 tab PO Q4H PRN 10/31 [History] Acetaminophen/oxyCODONE [Percocet 325-5 MG] 1 tab PO Q4H PRN tablet 09/14/17 [ Rx] Levothyroxine 25 mcg PO ACBREAKFAST 90 Days #90 tablet 09/14/17 [Rx] Melatonin 6 mg PO BEDTIME tablet 09/14/17 [Rx] Patient Handouts: Fall Prevention in the Home, [id number], How to Change Your Dressing, [id number] - Discharge Summary/Plan Comment DC Time >30 min.: Yes Discharge Summary/Plan Comment: Patient counseled on follow up with pulmonology for further work up and management. Medication discharge plan discussed and arranged with hospital Pharmacist. Patient and agree with plan of care and discharge instructions. F/u in clinic as directed. - Patient Data Vitals - Most Recent: Last Vital Signs Temp 36.4 C 09/15/17 08:00 Pulse 64 09/15/17 08:00 Resp 18 09/15/17 08:00 BP 118/60 09/15/17 08:00 Pulse Ox 99 09/15/17 08:00 Weight - Most Recent: 80.966 kg Lab Results - Last 24 hrs: Laboratory Results - last 24 hr 09/03/17 Range/Units 10:15 Gel Antibody Screen Negative Crossmatch See Detail Med Orders - Current: Current Medications Acetaminophen (Tylenol) 650 mg PO Q6HR PRN PRN Reason: Pain Last Admin: 09/14/17 19:34 Dose: 650 mg Albuterol/Ipratropium (Duoneb 3.0-0.5 Mg/3 Ml) 3 ml INH QID PRN PRN Reason: Shortness of Breath Last Admin: 08/28/17 19:58 Dose: 3 ml Albuterol/Ipratropium (Duoneb 3.0-0.5 Mg/3 Ml) 3 ml INH QPM AZUL Last Admin: 09/14/17 19:35 Dose: Not Given Calamine/Phenol (Calmoseptine) 0 gm TOP BID [facility] Last Admin: 09/15/17 07:43 Dose: 1 applic Diphenhydramine HCl (Benadryl) 50 mg PO Q6H PRN PRN Reason: Rash Last Admin: 09/14/17 19:34 Dose: 50 mg Fentanyl (Duragesic) 50 mcg TRDERM Q72H [facility] Last Admin: 09/14/17 09:48 Dose: 50 mcg Ferrous Sulfate (Ferrous Sulfate) 325 mg PO BIDMEALS [facility] Last Admin: 09/15/17 07:41 Dose: 325 mg Folic Acid (Folic Acid) 1 mg PO DAILY [facility] Last Admin: 09/15/17 07:41 Dose: 1 mg Gabapentin (Neurontin) 300 mg PO TID [facility] Last Admin: 09/15/17 07:40 Dose: 300 mg Hydromorphone HCl (Dilaudid) 1 - 2 mg IVPUSH Q4H PRN PRN Reason: Pain Last Admin: 09/12/17 15:34 Dose: 1 mg Levothyroxine Sodium (Levothyroxine) 25 mcg PO ACBREAKFAST [facility] Last Admin: 09/15/17 07:40 Dose: 25 mcg Lidocaine/Prilocaine (Emla Crm) 5 gm TOP BID PRN PRN Reason: WOUNDS Last Admin: 09/08/17 19:35 Dose: 1 applic Melatonin (Melatonin) 6 mg PO BEDTIME [facility] Last Admin: 09/14/17 19:34 Dose: 6 mg Metoprolol Succinate (Toprol Xl) 25 mg PO DAILY [facility] Last Admin: 09/15/17 07:41 Dose: 25 mg Nicotine (Habitrol) 14 mg TRDERM QPM [facility] Last Admin: 09/14/17 19:35 Dose: 14 mg Nystatin (Nystop) 0 gm TOP QID [facility] Last Admin: 09/15/17 07:43 Dose: 1 applic Omeprazole (Omeprazole) 20 mg PO ACBREAKFAST [facility] Last Admin: 09/15/17 07:41 Dose: 20 mg Oxycodone/Acetaminophen (Percocet 325-5 Mg) 1 tab PO Q4H PRN PRN Reason: Pain Last Admin: 09/14/17 19:36 Dose: 1 tab Potassium Chloride (Klor-Con M20) 20 meq PO DAILY [facility] Last Admin: 09/15/17 07:41 Dose: 20 meq Senna/Docusate Sodium (Senna Plus) 1 tab PO BID [facility] Last Admin: 09/15/17 07:41 Dose: 1 tab Sodium Chloride (Saline Flush) 10 ml FLUSH BID [facility] Last Admin: 09/15/17 07:43 Dose: Not Given Tamsulosin HCl (Flomax) 0.4 mg PO DAILY [facility] Last Admin: 09/15/17 07:41 Dose: 0.4 mg Discontinued Medications Clopidogrel Bisulfate (Plavix) 75 mg PO DAILY [facility] Last Admin: 08/27/17 07:48 Dose: 75 mg Diphenhydramine HCl (Benadryl) Confirm Administered Dose 50 mg .ROUTE .STK-MED ONE Stop: 09/09/17 19:26 Last Admin: 09/09/17 21:10 Dose: 50 mg Fentanyl (Duragesic) Confirm Administered Dose 50 mcg .ROUTE .STK-MED ONE Stop: 09/02/17 07:18 Last Admin: 09/02/17 07:34 Dose: Not Given Fentanyl (Duragesic) Confirm Administered Dose 50 mcg .ROUTE .STK-MED ONE Stop: 09/11/17 08:05 Last Admin: 09/11/17 08:07 Dose: Not Given Folic Acid (Folic Acid) Confirm Administered Dose 1 mg .ROUTE .STK-MED ONE Stop: 09/10/17 09:19 Last Admin: 09/10/17 10:20 Dose: Not Given Gabapentin (Neurontin) Confirm Administered Dose 300 mg .ROUTE .STK-MED ONE Stop: 09/04/17 19:24 Last Admin: 09/04/17 22:31 Dose: Not Given Hydromorphone HCl (Dilaudid) 1 mg IVPUSH Q4H PRN PRN Reason: Pain Last Admin: 08/27/17 06:43 Dose: 1 mg Piperacillin Sod/Tazobactam (Sod 3.375 gm/ Sodium Chloride) 100 mls @ 100 mls/ hr IV Q6H [facility] Last Admin: 08/26/17 15:23 Dose: Not Given Piperacillin Sod/Tazobactam (Sod 3.375 gm/ Sodium Chloride) 100 mls @ 100 mls/ hr IV Q6H [facility] Last Admin: 08/27/17 05:51 Dose: 100 mls/hr Lidocaine/Prilocaine (Emla Crm) Confirm Administered Dose 5 gm .ROUTE .STK-MED ONE Stop: 09/08/17 19:27 Last Admin: 09/08/17 19:42 Dose: Not Given Lidocaine/Prilocaine (Emla Crm) Confirm Administered Dose 5 gm .ROUTE .STK-MED ONE Stop: 09/09/17 19:18 Last Admin: 09/09/17 21:10 Dose: 1 applic Lidocaine/Prilocaine (Emla Crm) Confirm Administered Dose 5 gm .ROUTE .STK-MED ONE Stop: 09/10/17 20:24 Last Admin: 09/11/17 08:54 Dose: Not Given Magnesium Hydroxide (Milk Of Magnesia) Confirm Administered Dose 30 ml .ROUTE .STK-MED ONE Stop: 09/04/17 11:40 Last Admin: 09/04/17 12:25 Dose: 30 ml Nicotine (Habitrol) 21 mg TRDERM QPM AZUL Nicotine (Habitrol) 21 mg TRDERM QPM AZUL Last Admin: 08/29/17 19:47 Dose: 21 mg Nicotine (Habitrol) Confirm Administered Dose 14 mg .ROUTE .STK-MED ONE Stop: 08/30/17 19:33 Last Admin: 08/31/17 09:28 Dose: Not Given Nicotine (Habitrol) Confirm Administered Dose 14 mg .ROUTE .STK-MED ONE Stop: 08/31/17 20:01 Last Admin: 08/31/17 20:25 Dose: Not Given Nicotine (Habitrol) Confirm Administered Dose 14 mg .ROUTE .STK-MED ONE Stop: 09/03/17 19:19 Last Admin: 09/03/17 23:19 Dose: Not Given Nicotine (Habitrol) Confirm Administered Dose 14 mg .ROUTE .STK-MED ONE Stop: 09/04/17 19:11 Last Admin: 09/04/17 19:15 Dose: Not Given Nicotine (Habitrol) Confirm Administered Dose 14 mg .ROUTE .STK-MED ONE Stop: 09/05/17 19:06 Last Admin: 09/05/17 20:16 Dose: Not Given Nicotine (Habitrol) Confirm Administered Dose 14 mg .ROUTE .STK-MED ONE Stop: 09/08/17 19:25 Last Admin: 09/08/17 19:31 Dose: 14 mg Nicotine (Habitrol) Confirm Administered Dose 14 mg .ROUTE .STK-MED ONE Stop: 09/09/17 19:47 Last Admin: 09/09/17 21:11 Dose: 14 mg Nicotine (Habitrol) Confirm Administered Dose 14 mg .ROUTE .STK-MED ONE Stop: 09/10/17 19:50 Last Admin: 09/10/17 20:01 Dose: 14 mg Oxycodone/Acetaminophen (Percocet 325-5 Mg) Confirm Administered Dose 1 tab .ROUTE .STK-MED ONE Stop: 08/30/17 10:19 Last Admin: 08/30/17 10:27 Dose: 1 tab Phenazopyridine HCl (Pyridium) 100 mg PO Q8HR PRN PRN Reason: Other Last Admin: 09/02/17 09:49 Dose: 100 mg Senna/Docusate Sodium (Senna Plus) 1 tab PO DAILY PRN PRN Reason: Constipation Trazodone HCl (Trazodone) 50 mg PO BEDTIME [facility] Last Admin: 09/01/17 21:05 Dose: 50 mg Trazodone HCl (Trazodone) 50 mg PO ONETIME ONE Stop: 09/13/17 17:06 Last Admin: 09/14/17 19:34 Dose: 50 mg Trazodone HCl (Trazodone) Confirm Administered Dose 50 mg .ROUTE .STK-MED ONE Stop: 09/13/17 19:34 Last Admin: 09/13/17 19:36 Dose: Not Given Trazodone HCl (Trazodone) Confirm Administered Dose 50 mg .ROUTE .STK-MED ONE Stop: 09/14/17 19:25 Last Admin: 09/14/17 19:33 Dose: Not Given Tuberculin PPD (Aplisol) 5 unit IDERM ONETIME ONE Stop: 08/26/17 20:01 Last Admin: 08/28/17 19:50 Dose: 5 unit *Q Meaningful Use (DIS) - VTE *Q VTE Criteria *Q: - Stroke *Q Stroke Criteria *Q: - AMI *Q AMI Criteria *Q:
== END 2017-09-15 10:23 | disposition home or self-care (01) | DRG 194 ==
LOC: LB.MS 11:04 → EEVIPCON 11:04
PROVIDERS: ADMIT Family Medicine; ATTEND Family Medicine
DX: J18.9 Pneumonia, unspecified organism (principal); N17.9 Acute kidney failure, unspecified; I87.2 Venous insufficiency (chronic) (peripheral); R53.1 Weakness; R29.898 Other symptoms and signs involving the musculoskeletal system; B27.90 Infectious mononucleosis, unspecified without complication; M79.604 Pain in right leg; M79.605 Pain in left leg; I12.9 Hypertensive chronic kidney disease with stage 1 through stage 4 chronic kidney disease, or unspecified chronic kidney disease; F17.210 Nicotine dependence, cigarettes, uncomplicated; N18.9 Chronic kidney disease, unspecified; R91.8 Other nonspecific abnormal finding of lung field; J44.9 Chronic obstructive pulmonary disease, unspecified; H54.7 Unspecified visual loss; Z88.8 Allergy status to other drugs, medicaments and biological substances; R41.0 Disorientation, unspecified; R74.0 Nonspecific elevation of levels of transaminase and lactic acid dehydrogenase [LDH]; R94.6 Abnormal results of thyroid function studies; D72.818 Other decreased white blood cell count
CPT/HCPCS: 36415; 51702; 70450; 80048; 80053; 81001; 82140; 82962; 83605; 83615; 84425; 85025; 86580; 86850; 86900; 86901; 87102; 87206; 88104; 97110-GO; 97110-GP; 97116-GP; 97530-GO; 97530-GP; 97535-GO; A9270-GY; J1170; J2543; J7030; J7050; J7620

== ENCOUNTER 2017-09-17 17:04 | Emergency (ER) | payer MEDICARE, BC ==
[2017-09-17 17:18] VITALS: BP 147/67
[2017-09-17] MEDS ORDERED: Ondansetron 4 MG/2 ML SDV IVPUSH ONE (17:27)
[2017-09-17] MEDS ORDERED: Sodium Chloride 0.9% 10 ML Syringe FLUSH PRN (17:27)
[2017-09-17] MEDS ORDERED: HYDROmorphone 2 MG/ML Syringe IVPUSH ONE ×2 (17:28→18:28)
[2017-09-17] MEDS ORDERED: HYDROmorphone 2 MG/ML Syringe ONE (17:37)
[2017-09-17] MEDS ORDERED: Ondansetron 4 MG/2 ML SDV ONE (17:42)
--- NOTE | 2017-09-17 18:18 | EDM.PDOC ---
ED HPI GENERAL MEDICAL PROBLEM - General Chief Complaint: Upper Extremity Injury/Pain Stated Complaint: Right Shoulder Pain Time Seen by Provider: 09/17/17 17:20 Source of Information: Reports: Patient, Family History Limitations: Reports: No Limitations - History of Present Illness INITIAL COMMENTS - FREE TEXT/NARRATIVE: Patient is a 72 year old man who has rheumatoid arthritis and he had to stop the methotrexate 1 month ago. He had right shoulder pain getting bad over the last 24 hours and has come in for help. He has no trauma to the shoulder and no fever or chills or other complaints. Onset: Gradual Onset Date: 09/16/17 Duration: Day(s): (1) Location: Reports: Upper Extremity, Right Quality: Reports: Same as Previous Episode, Sharp Improves with: Reports: Medication Worsens with: Reports: Movement Context: Reports: Other (History of rheumatoid arthritis.) Associated Symptoms: Reports: No Other Symptoms Right Shoulder Pain Score (Numeric/FACES): 7 - Related Data Allergies Allergy/AdvReac Type Severity Reaction Status Date / Time lisinopril AdvReac Cannot Verified 09/17/17 17:14 Remember naproxen AdvReac Cannot Verified 09/17/17 17:14 Remember Home Meds: Home Meds Acetaminophen 650 mg PO Q6HR PRN 08/03/17 [History] Clopidogrel [Plavix] 75 mg PO DAILY 08/03/17 [History] Docusate Sodium/Sennosides [Senna Plus] 1 each PO DAILY PRN 08/03/17 [History] Folic Acid 1 mg PO DAILY 08/03/17 [History] Ipratropium/Albuterol Sulfate [Iprat-Albut 0.5-3(2.5) MG/3 ML] 3 ml IH QPM 08/03 [History] Metoprolol Succinate [Toprol XL] 25 mg PO DAILY 08/03/17 [History] Potassium Chloride 20 meq PO DAILY 08/03/17 [History] traZODone 50 mg PO BEDTIME 08/03/17 [History] Ferrous Sulfate 325 mg PO BIDMEALS #60 tablet 08/06/17 [Rx] Tamsulosin [Flomax] 0.4 mg PO DAILY #30 cap.er 08/06/17 [Rx] Omeprazole 20 mg PO ACBREAKFAST 08/17/17 [History] Albuterol/Ipratropium [DuoNeb 3.0-0.5 MG/3 ML] 3 ml INH QID PRN 08/26/17 [ History] Gabapentin [Neurontin] 300 mg PO TID 08/26/17 [History] Nicotine [Nicoderm CQ] 7 mg TD QPM 08/26/17 [History] fentaNYL [Duragesic] 50 mcg TRDERM Q72H patch 08/26/17 [Rx] oxyCODONE HCl/Acetaminophen [oxyCODONE-Acetaminophen 5-325] 1 - 2 tab PO Q4H PRN 08/26/17 [History] Levothyroxine 25 mcg PO ACBREAKFAST 90 Days #90 tablet 09/14/17 [Rx] Melatonin 6 mg PO BEDTIME tablet 09/14/17 [Rx] Past Medical History HEENT History: Reports: Impaired Vision Cardiovascular History: Reports: Hypertension Respiratory History: Reports: COPD Musculoskeletal History: Reports: RA Neurological History: Reports: Neuropathy, Peripheral Endocrine/Metabolic History: Reports: Diabetes, Type II, Hypothyroidism Hematologic History: Reports: Anemia Immunologic History: Reports: Immunosuppression Oncologic (Cancer) History: Reports: Other (See Below) Other Oncologic History: 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 Dermatologic History: Reports: Decubitus Ulcer, Venous Stasis Dermatitis Social & Family History - Family History Family Medical History: Noncontributory - Tobacco Use Smoking Status *Q: Former Smoker Years of Tobacco use: 60 Packs/Tins Daily: 1.5 Used Tobacco, but Quit: No - Caffeine Use Caffeine Use: Reports: Coffee - Recreational Drug Use Recreational Drug Use: No Review of Systems - Review of Systems Review Of Systems: See Below Constitutional: Reports: No Symptoms Eyes: Reports: No Symptoms Ears: Reports: No Symptoms Nose: Reports: No Symptoms Mouth/Throat: Reports: No Symptoms Respiratory: Reports: No Symptoms Cardiovascular: Reports: No Symptoms GI/Abdominal: Reports: No Symptoms Genitourinary: Reports: No Symptoms Musculoskeletal: Reports: No Symptoms Skin: Reports: No Symptoms Neurological: Reports: No Symptoms Psychiatric: Reports: No Symptoms ED EXAM, GENERAL - Physical Exam Exam: See Below Exam Limited By: No Limitations General Appearance: Alert, WD/WN, No Apparent Distress Eye Exam: Bilateral Eye: EOMI, Normal Fundi, Normal Inspection Ears: Normal External Exam, Normal Canal, Hearing Grossly Normal, Normal TMs Ear Exam: Bilateral Ear: Auricle Normal, Canal Normal, TM normal Nose: Normal Inspection, Normal Mucosa, No Blood Throat/Mouth: Normal Inspection, Normal Lips, Normal Teeth, Normal Gums, Normal Oropharynx, Normal Voice, No Airway Compromise Head: Atraumatic, Normocephalic Neck: Normal Inspection, Supple, Non-Tender, Full Range of Motion Respiratory/Chest: No Respiratory Distress, Lungs Clear, Normal Breath Sounds, No Accessory Muscle Use, Chest Non-Tender Cardiovascular: Normal Peripheral Pulses, Regular Rate, Rhythm, No Edema, No Gallop, No JVD, No Murmur, No Rub GI/Abdominal: Normal Bowel Sounds, Soft, Non-Tender, No Organomegaly, No Distention, No Abnormal Bruit, No Mass Extremities: Limited Range of Motion, Other (Right shoulder pain on palpation and ROM) Neurological: Alert, Oriented, CN II-XII Intact, Normal Cognition, Normal Gait, Normal Reflexes, No Motor/Sensory Deficits Psychiatric: Normal Affect, Normal Mood Skin Exam: Warm, Dry, Intact, Normal Color, No Rash Lymphatic: No Adenopathy Course - Vital Signs Text/Narrative:: Patient had an uneventful ED course. He got good relief of pain with 2, 1 mg doses of IV Dilaudid and 4 mg of IV Zofran. He will go home on his Prednisone 50 mg po daily and Percocet. He will follow up with Dr. Rosen in 2-3 days for further Rheumatology consultation. Last Recorded V/S: Last Vital Signs Temp 37.1 C 09/17/17 17:15 Pulse 81 09/17/17 17:15 Resp 18 09/17/17 17:15 BP 147/67 H 09/17/17 17:15 Pulse Ox 97 09/17/17 17:15 - Orders/Labs/Meds Orders: Active Orders 24 hr Category Date Time Status Shoulder 1V Rt [CR] Stat Exams 09/17/17 17:25 Taken Sodium Chloride 0.9% [Saline Flush] Med 09/17/17 17:27 Active 10 ml FLUSH ASDIRECTED PRN Saline Lock Insert [OM.PC] Routine Oth 09/17/17 17:27 Ordered Medication Orders Sodium Chloride (Saline Flush) 10 ml FLUSH ASDIRECTED PRN PRN Reason: Keep Vein Open Labs: Laboratory Tests 09/17/17 09/17/17 Range/Units 17:30 17:30 WBC 7.2 D (4.0-11.0) K/uL RBC 2.18 L (4.50-6.50) M/uL Hgb 8.1 L (13.0-18.0) g/dL Hct 24.5 L (40.0-54.0) % MCV 112 H (76-96) fL MCH 37.2 H (27.0-32.0) pg MCHC 33.1 (31.0-35.0) g/dL RDW 15.1 (11.0-16.0) % Plt Count 99 L (150-400) K/uL MPV 10.0 (6.0-10.0) fL Neut % (Auto) 92.5 H (45.0-70.0) % Lymph % (Auto) 3.0 L (20.0-40.0) % [place] % (Auto) 4.2 (3.0-10.0) % Eos % (Auto) 0.0 L (1.0-5.0) % Baso % (Auto) 0.3 (0.0-0.5) % Neut # (Auto) 6.68 (2.00-7.50) K/uL Lymph # (Auto) 0.22 L (1.50-4.00) K/uL [place] # (Auto) 0.30 (0.20-0.80) K/uL Eos # (Auto) 0.00 L (0.04-0.40) K/uL Baso # (Auto) 0.02 (0.02-0.10) K/uL Sodium 134 L (136-145) mmol/L Potassium 4.4 D (3.5-5.1) mmol/L Chloride 102 (98-107) mmol/L Carbon Dioxide 24.2 (21.0-32.0) mmol/L Anion Gap 12.2 (5.0-15.0) mmol/L BUN 11 (8-26) mg/dL Creatinine 1.21 (0.70-1.30) mg/dL Est Cr Clr Drug Dosing TNP Estimated GFR (MDRD) 59 L (>60) MLS/MIN BUN/Creatinine Ratio 9.1 (6-25) Glucose 216 H D (74-100) mg/dL Calcium 8.0 L (8.5-10.1) mg/dL Total Bilirubin 0.6 (0.0-1.0) mg/dL AST 35 (15-37) U/L ALT 15 (12-78) U/L Alkaline Phosphatase 124 H (46-116) U/L Total Protein 7.2 (6.4-8.2) g/dL Albumin 1.8 L (3.4-5.0) g/dL Globulin 5.4 H (2.2-4.2) g/dL Albumin/Globulin Ratio 0.3 L (0.8-2.0) Meds: Medications Generic Name Dose Route Start Last Admin Trade Name Freq PRN Reason Stop Dose Admin Sodium Chloride 10 ml 09/17/17 17:27 Saline Flush FLUSH ASDIRECTED PRN Keep Vein Open Discontinued Medications Generic Name Dose Route Start Last Admin Trade Name Freq PRN Reason Stop Dose Admin Hydromorphone HCl 1 mg 09/17/17 17:28 09/17/17 17:34 Dilaudid IVPUSH 09/17/17 17:29 1 mg ONETIME ONE Administration Hydromorphone HCl Confirm 09/17/17 17:37 Dilaudid Administered 09/17/17 17:38 Dose 2 mg .ROUTE .STK-MED ONE Ondansetron HCl 4 mg 09/17/17 17:27 09/17/17 17:39 Zofran IVPUSH 09/17/17 17:28 4 mg ONETIME ONE Administration Ondansetron HCl Confirm 09/17/17 17:42 Zofran Administered 09/17/17 17:43 Dose 4 mg .ROUTE .STK-MED ONE Departure - Departure Time of Disposition: 18:26 Disposition: Home, Self-Care 01 Condition: Good Clinical Impression: Rheumatoid arthritis flare - Discharge Information Referrals: PCP,None [Primary Care Provider] - - My Orders Last 24 Hours: My Active Orders 09/17/17 17:25 Shoulder 1V Rt [CR] Stat 09/17/17 17:27 Sodium Chloride 0.9% [Saline Flush] 10 ml FLUSH ASDIRECTED PRN Saline Lock Insert [OM.PC] Routine - Assessment/Plan Last 24 Hours: My Active Orders 09/17/17 17:25 Shoulder 1V Rt [CR] Stat 09/17/17 17:27 Sodium Chloride 0.9% [Saline Flush] 10 ml FLUSH ASDIRECTED PRN Saline Lock Insert [OM.PC] Routine
--- NOTE | 2017-09-19 10:32 | CR ---
DATE OF SERVICE: 09/17/17 CLINICAL DATA: shoulder pain RIGHT SHOULDER A single view was performed. There is diffuse osteopenia. I do not see any fracture or dislocation, however a single view is inadequate to exclude both. [id number] [facility]
== END 2017-09-17 18:38 | disposition home or self-care (01) ==
LOC: LB.ED 17:04
DX: M06.9 Rheumatoid arthritis, unspecified (principal); E11.40 Type 2 diabetes mellitus with diabetic neuropathy, unspecified; I10 Essential (primary) hypertension; J44.9 Chronic obstructive pulmonary disease, unspecified; Z87.891 Personal history of nicotine dependence; Z79.899 Other long term (current) drug therapy; Z88.8 Allergy status to other drugs, medicaments and biological substances
CPT/HCPCS: 36415; 73020; 80053; 85025; 96374; 96375; 96376; 99283; J1170; J2405

== ENCOUNTER 2017-09-20 04:40 | Emergency (ER) | payer MEDICARE, BC ==
[2017-09-20] MEDS ORDERED: HYDROmorphone 2 MG/ML Syringe ONE ×2 (06:21→08:40)
[2017-09-20] MEDS ORDERED: Ondansetron 4 MG/2 ML SDV IVPUSH ONE (06:21)
[2017-09-20] MEDS ORDERED: Ondansetron 4 MG/2 ML SDV ONE (06:24)
[2017-09-20] MEDS: HYDROmorphone 2 MG/ML Syringe IVPUSH ONE ×2 (06:25→07:02)
--- NOTE | 2017-09-20 08:08 | EDM.PDOC ---
ED HPI GENERAL MEDICAL PROBLEM - General Chief Complaint: Lower Extremity Injury/Pain Stated Complaint: rheumatoid flare up Time Seen by Provider: 09/20/17 06:25 Source of Information: Reports: Patient, Family History Limitations: Reports: No Limitations - History of Present Illness INITIAL COMMENTS - FREE TEXT/NARRATIVE: Patient is a 72 year old man with rheumatoid arthritis who has had a flare over the weekend. Last night he had a fever to 102.3 and he had severe left hip pain so he came back to the ED. Onset: Gradual Onset Date: 09/19/17 Onset Time: 20:00 Duration: Day(s): (1), Chronic Location: Reports: Lower Extremity, Left Quality: Reports: Same as Previous Episode, Sharp, Stabbing Severity: Severe Improves with: Reports: None Worsens with: Reports: None Associated Symptoms: Reports: No Other Symptoms Treatments SOFTWARE ANALYST: Reports: NSAIDS, Other (see below) (percocet) 0 Pain Score (Numeric/FACES): 10 - Related Data Allergies Allergy/AdvReac Type Severity Reaction Status Date / Time lisinopril AdvReac Cannot Verified 09/17/17 17:14 Remember naproxen AdvReac Cannot Verified 09/17/17 17:14 Remember Home Meds: Home Meds Acetaminophen 650 mg PO Q6HR PRN 08/03/17 [History] Clopidogrel [Plavix] 75 mg PO DAILY 08/03/17 [History] Docusate Sodium/Sennosides [Senna Plus] 1 each PO DAILY PRN 08/03/17 [History] Folic Acid 1 mg PO DAILY 08/03/17 [History] Ipratropium/Albuterol Sulfate [Iprat-Albut 0.5-3(2.5) MG/3 ML] 3 ml IH QPM 08/03 [History] Metoprolol Succinate [Toprol XL] 25 mg PO DAILY 08/03/17 [History] Potassium Chloride 20 meq PO DAILY 08/03/17 [History] traZODone 50 mg PO BEDTIME 08/03/17 [History] Ferrous Sulfate 325 mg PO BIDMEALS #60 tablet 08/06/17 [Rx] Tamsulosin [Flomax] 0.4 mg PO DAILY #30 cap.er 08/06/17 [Rx] Omeprazole 20 mg PO ACBREAKFAST 08/17/17 [History] Albuterol/Ipratropium [DuoNeb 3.0-0.5 MG/3 ML] 3 ml INH QID PRN 08/26/17 [ History] Gabapentin [Neurontin] 300 mg PO TID 08/26/17 [History] Nicotine [Nicoderm CQ] 7 mg TD QPM 08/26/17 [History] fentaNYL [Duragesic] 50 mcg TRDERM Q72H patch 08/26/17 [Rx] oxyCODONE HCl/Acetaminophen [oxyCODONE-Acetaminophen 5-325] 1 - 2 tab PO Q4H PRN 08/26/17 [History] Levothyroxine 25 mcg PO ACBREAKFAST 90 Days #90 tablet 09/14/17 [Rx] Melatonin 6 mg PO BEDTIME tablet 09/14/17 [Rx] predniSONE [Prednisone] 50 mg PO DAILY 09/20/17 [History] Past Medical History HEENT History: Reports: Impaired Vision Cardiovascular History: Reports: Hypertension Respiratory History: Reports: COPD Musculoskeletal History: Reports: RA Neurological History: Reports: Neuropathy, Peripheral Endocrine/Metabolic History: Reports: Diabetes, Type II, Hypothyroidism Hematologic History: Reports: Anemia Immunologic History: Reports: Immunosuppression Oncologic (Cancer) History: Reports: Other (See Below) Other Oncologic History: 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 Dermatologic History: Reports: Decubitus Ulcer, Venous Stasis Dermatitis - Past Surgical History GI Surgical History: Reports: Other (See Below) Other GI Surgeries/Procedures: umbilical hernia Social & Family History - Family History Family Medical History: Noncontributory - Tobacco Use Smoking Status *Q: Former Smoker Years of Tobacco use: 60 Packs/Tins Daily: 1.5 Used Tobacco, but Quit: No - Caffeine Use Caffeine Use: Reports: Coffee - Recreational Drug Use Recreational Drug Use: No Review of Systems - Review of Systems Review Of Systems: See Below Constitutional: Reports: Chills, Fever, Weakness Eyes: Reports: No Symptoms Ears: Reports: No Symptoms Nose: Reports: No Symptoms Mouth/Throat: Reports: No Symptoms Respiratory: Reports: No Symptoms Cardiovascular: Reports: No Symptoms GI/Abdominal: Reports: No Symptoms Genitourinary: Reports: No Symptoms Musculoskeletal: Reports: Joint Pain Skin: Reports: No Symptoms Neurological: Reports: No Symptoms Psychiatric: Reports: No Symptoms ED EXAM, GENERAL - Physical Exam Exam: See Below Exam Limited By: No Limitations General Appearance: Alert, WD/WN, No Apparent Distress Eye Exam: Bilateral Eye: EOMI, PERRL Ears: Normal External Exam, Normal Canal, Hearing Grossly Normal, Normal TMs Ear Exam: Bilateral Ear: Auricle Normal, Canal Normal, TM normal Nose: Normal Inspection, Normal Mucosa, No Blood Throat/Mouth: Normal Inspection, Normal Lips, Normal Teeth, Normal Gums, Normal Oropharynx, Normal Voice, No Airway Compromise Head: Atraumatic, Normocephalic Neck: Normal Inspection, Supple, Non-Tender, Full Range of Motion Respiratory/Chest: No Respiratory Distress, Lungs Clear, Normal Breath Sounds, No Accessory Muscle Use, Chest Non-Tender Cardiovascular: Normal Peripheral Pulses Extremities: Limited Range of Motion, Other (Severe left hip pain on palpation or movement.) Neurological: Alert, Oriented, CN II-XII Intact, Normal Cognition, Normal Gait, Normal Reflexes, No Motor/Sensory Deficits Psychiatric: Normal Affect, Normal Mood Course - Vital Signs Text/Narrative:: Patient will be transfered to Dr. Rossi. Last Recorded V/S: Last Vital Signs Temp 38.2 C H 09/20/17 07:25 Pulse 88 09/20/17 06:46 Resp 18 09/20/17 06:46 BP 176/86 H 09/20/17 06:46 Pulse Ox 98 09/20/17 06:46 - Orders/Labs/Meds Orders: Active Orders 24 hr Category Date Time Status CXR [Chest 2V] [CR] Stat Exams 09/20/17 07:52 Ordered Hip Min 2V or 3V w Pelvis Lt [CR] Stat Exams 09/20/17 07:53 Stop Req Hip wo Cont Lt [CT] Stat Exams 09/20/17 08:01 Ordered CULTURE BLOOD [BC] Stat Lab 09/20/17 07:56 Ordered CULTURE BLOOD [BC] Stat Lab 09/20/17 08:02 Ordered Labs: Laboratory Tests 09/20/17 09/20/17 Range/Units 06:30 06:30 WBC 9.2 D (4.0-11.0) K/uL RBC 2.30 L (4.50-6.50) M/uL Hgb 8.9 L (13.0-18.0) g/dL Hct 26.1 L (40.0-54.0) % MCV 114 H (76-96) fL MCH 38.7 H (27.0-32.0) pg MCHC 34.1 (31.0-35.0) g/dL RDW 14.8 (11.0-16.0) % Plt Count 107 L (150-400) K/uL MPV 10.1 H (6.0-10.0) fL Neut % (Auto) 86.8 H (45.0-70.0) % Lymph % (Auto) 5.8 L (20.0-40.0) % [place] % (Auto) 7.2 (3.0-10.0) % Eos % (Auto) 0.1 L (1.0-5.0) % Baso % (Auto) 0.1 (0.0-0.5) % Neut # (Auto) 7.97 H (2.00-7.50) K/uL Lymph # (Auto) 0.53 L (1.50-4.00) K/uL [place] # (Auto) 0.66 (0.20-0.80) K/uL Eos # (Auto) 0.01 L (0.04-0.40) K/uL Baso # (Auto) 0.01 L (0.02-0.10) K/uL ESR > 130 H (0-20) mm/hr Sodium 139 (136-145) mmol/L Potassium 4.3 (3.5-5.1) mmol/L Chloride 105 (98-107) mmol/L Carbon Dioxide 26.2 (21.0-32.0) mmol/L Anion Gap 12.1 (5.0-15.0) mmol/L BUN 16 D (8-26) mg/dL Creatinine 1.18 (0.70-1.30) mg/dL Est Cr Clr Drug Dosing TNP Estimated GFR (MDRD) > 60 (>60) MLS/MIN BUN/Creatinine Ratio 13.6 (6-25) Glucose 97 D (74-100) mg/dL Calcium 8.0 L (8.5-10.1) mg/dL Total Bilirubin 0.5 (0.0-1.0) mg/dL AST 39 H (15-37) U/L ALT 19 (12-78) U/L Alkaline Phosphatase 151 H (46-116) U/L C-Reactive Protein 81.9 H (0.0-3.0) mg/L Total Protein 7.2 (6.4-8.2) g/dL Albumin 1.9 L (3.4-5.0) g/dL Globulin 5.3 H (2.2-4.2) g/dL Albumin/Globulin Ratio 0.4 L (0.8-2.0) Meds: Medications Discontinued Medications Generic Name Dose Route Start Last Admin Trade Name Lico PRN Reason Stop Dose Admin Hydromorphone HCl Confirm 09/20/17 06:21 Dilaudid Administered 09/20/17 06:22 Dose 2 mg .ROUTE .STK-MED ONE Hydromorphone HCl 1 mg 09/20/17 06:22 09/20/17 07:02 Dilaudid IVPUSH 09/20/17 06:23 1 mg ONETIME ONE Administration Ondansetron HCl 4 mg 09/20/17 06:21 09/20/17 06:27 Zofran IVPUSH 09/20/17 06:22 4 mg ONETIME ONE Administration Ondansetron HCl Confirm 09/20/17 06:24 Zofran Administered 09/20/17 06:25 Dose 4 mg .ROUTE .STK-MED ONE Departure - Departure Time of Disposition: 08:09 Disposition: DC/Tfer to Acute Hospital 02 Condition: Fair Clinical Impression: Acute pain of left hip - Discharge Information Referrals: PCP,None [Primary Care Provider] - Forms: ED Department Discharge - My Orders Last 24 Hours: My Active Orders 09/20/17 07:52 CXR [Chest 2V] [CR] Stat 09/20/17 07:53 Hip Min 2V or 3V w Pelvis Lt [CR] Stat 09/20/17 07:56 CULTURE BLOOD [BC] Stat 09/20/17 08:01 Hip wo Cont Lt [CT] Stat 09/20/17 08:02 CULTURE BLOOD [BC] Stat - Assessment/Plan Last 24 Hours: My Active Orders 09/20/17 07:52 CXR [Chest 2V] [CR] Stat 09/20/17 07:53 Hip Min 2V or 3V w Pelvis Lt [CR] Stat 09/20/17 07:56 CULTURE BLOOD [BC] Stat 09/20/17 08:01 Hip wo Cont Lt [CT] Stat 09/20/17 08:02 CULTURE BLOOD [BC] Stat
[2017-09-20] MEDS ORDERED: HYDROmorphone 2 MG/ML Syringe IVPUSH ONE ×2 (08:43→08:49)
[2017-09-20 10:29] VITALS: BP 180/82
--- NOTE | 2017-09-20 11:38 | CR ---
DATE OF SERVICE: 09/20/2017 CLINICAL DATA: Fever and pneumonia last week.. AP PORTABLE CHEST Comparison is made to a prior exam dated 09/17/2017. The exam is underpenetrated. The patient has taken a very poor inspiration. The heart size is stable. The pulmonary vasculature does appear more prominent than on the prior exam with some cephalization of flow. Fluid overload versus pulmonary venous congestion. There is a poorly defined infiltrate in the right apex that obscures the mass noted on the prior chest x-ray. There are atelectatic changes in both lung bases. The lungs are otherwise clear. No pneumothorax. The remainder of the exam is unchanged from the prior. [id number] [facility]
--- NOTE | 2017-09-21 07:41 | ER ---
SUBJECTIVE: I was asked to resume care on Mr. Kennedy from Dr. Smith after coming in with a complaint of hip pain with a fever of 101. The patient is not able to give much history due to the pain, but his is present. In talking with her, he was doing reasonably well after leaving the hospital last week. He was actually out in the garage doing some cleaning and then on Wednesday noticed bilateral shoulder pain and bilateral hip pain. He apparently called in, was placed on prednisone 50 mg daily, which is first dose was Wednesday. His pain persisted through the weekend and was seen here apparently in the emergency room earlier. He then on Wednesday developed fevers up to 101 at home with rigors. He then came in the early hour of the morning because of hip pain. The patient states his shoulder pain is improved, but now hip pain is in the left hip. He has been taking Percocet at home along with his prednisone and fentanyl. He has been off his methotrexate. His past medical history is remarkable for rheumatoid arthritis, right upper lobe mass that he apparently saw the hand reamer for and they are planning on PET scan, right total hip arthroplasty. While in the emergency room, the patient has gotten two doses of Dilaudid. Still is complaining of a lot of pain mostly now on just his left hip. PHYSICAL EXAMINATION: VITAL SIGNS: His vital signs are stable. His temperature is 101. GENERAL: The patient is alert. He is oriented to person, place, and time. He knows it is hunting season. HEENT exam is negative. There is no adenopathy or thyromegaly. CHEST: Clear to auscultation, although with decreased breath sounds bilaterally. CARDIAC: Nontachycardic without gallop or rub. There is no pedal edema. ABDOMEN: Benign. SKIN: He does have some ulcers in the lower extremities, which are quite healed. There is no drainage noted. No surrounding erythema or warmth or fluctuance. He has one small ulcer on the left ankle and also one on the right ankle. EXTREMITIES: The patient can move both shoulders without difficulty. His right hip can flex to 45 degrees, internally and externally rotate without discomfort. The left hip is mildly warm to palpation, but no surrounding erythema or ulceration. Any movement at all of the left hip causes severe pain. NEUROLOGIC: Otherwise nonfocal, and mental status as above. LABORATORY DATA: White count is 9.2 with a hemoglobin 8.9, platelet count 107. His sedimentation rate is greater than 130. His C-reactive protein is 82. Electrolytes were normal. LFTs reveal alkaline phosphatase of 151, albumin 1.9. Differential on CBC reveals a left shift with 86% neutrophils on automated differential. CT scan of the hips was ordered and is pending at the time of this dictation. IMPRESSION: Fever; history of rheumatoid arthritis, not on treatment other than prednisone; severe left hip pain. I discussed with the patient and of my concern of a septic arthritis. With him being on prednisone since Wednesday, I would assume that if this was rheumatoid arthritis. His symptoms should have been markedly improved. With his fever now, I a.m. concerned of a possible left hip septic arthritis. I did talk to Dr. Hu, who was fortunately here and his recommendation was to transfer to outside emergency room for possible aspiration of the hip. I went back and discussed with the patient and and they were in agreement. The patient was given another dose of Dilaudid due to pain and will be transferred to [facility] for further care. I did discuss the case with the [facility] physician and all copy of lab will be sent with the patient. ANIVAL /[id number]
--- NOTE | 2017-09-21 12:43 | CT ---
DATE OF SERVICE: 09/20/2017 CLINICAL DATA: Hip pain. LEFT HIP CT Multislice axial acquisition through the left hip was performed. Axial images and sagittal and coronal reformations are reviewed. There is diffuse osteopenia. I do not see an acute fracture or dislocation. 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 There are small osseous densities adjacent to the femoral head consistent with loose bodies. The patient is status post right total hip arthroplasty. There is a 6.5 cm oval shaped fluid density mass just lateral to the right inguinal canal. Significance uncertain. I cannot exclude an infectious or inflammatory process. No other significant findings. [id number] [facility]
== END 2017-09-20 11:30 ==
LOC: LB.ED 04:40
DX: M25.552 Pain in left hip (principal); R50.9 Fever, unspecified; M06.9 Rheumatoid arthritis, unspecified; Z96.641 Presence of right artificial hip joint
CPT/HCPCS: 36415; 71010; 73700; 80053; 81001; 85025; 85651; 86140; 87040; 87077; 87186; 96374; 96375; 96376; 99284; 99285; A0425; A0429; J1170; J2405

== ENCOUNTER 2017-09-23 14:30 | Inpatient (IN) | payer MEDICARE, BC ==
--- NOTE | 2017-09-23 17:50 | PCM.HP ---
H&P History of Present Illness - General Date of Service: 09/23/17 Admit Problem/Dx: Admission Diagnosis/Problem Admission Diagnosis/Problem Bacteremia Source of Information: Patient History Limitations: Reports: No Limitations - History of Present Illness Initial Comments - Free Text/Narative: Pt was admitted to [facility] with entero-bacter Urosepsis this wednesday. He has been discharged today on oral cipro for 14 days . He is here on swing bed admission. Pt claims that he has been feeling better. Also he claims he has had loose stools since yesterday. Stools are semi-formed. no mucus, but his hemorrhoids are inflamed and causing some blood with stools.Afebrile. tolerating oral diet. he is admitted for OT and PT care. Pt had right hip arthritis and his pain is controlled presently. - Related Data Allergies/Adverse Reactions: Allergies Allergy/AdvReac Type Severity Reaction Status Date / Time strawberry Allergy Cannot Verified 09/23/17 16:08 Remember lisinopril AdvReac Cannot Verified 09/23/17 15:28 Remember naproxen AdvReac Cannot Verified 09/23/17 15:28 Remember Home Medications: Home Meds Acetaminophen 650 mg PO Q8HR 08/03/17 [History] Clopidogrel [Plavix] 75 mg PO DAILY 08/03/17 [History] Docusate Sodium/Sennosides [Senna Plus] 1 each PO DAILY PRN 08/03/17 [History] traZODone 50 mg PO BEDTIME 08/03/17 [History] Omeprazole 20 mg PO ACBREAKFAST 08/17/17 [History] Albuterol/Ipratropium [DuoNeb 3.0-0.5 MG/3 ML] 3 ml INH QID PRN 08/26/17 [ History] Gabapentin [Neurontin] 300 mg PO TID 08/26/17 [History] fentaNYL [Duragesic] 50 mcg TRDERM Q72H patch 08/26/17 [Rx] oxyCODONE HCl/Acetaminophen [oxyCODONE-Acetaminophen 5-325] 1 - 2 tab PO Q4H PRN 08/26/17 [History] predniSONE [Prednisone] 40 mg PO ASDIRECTED 09/20/17 [History] Ciprofloxacin HCl [Cipro] 500 mg PO BID 09/23/17 [History] Diclofenac Sodium [Voltaren 1%] 1 applic TOP BID PRN 09/23/17 [History] Hydroxychloroquine Sulfate [Plaquenil] 200 mg PO DAILY 09/23/17 [History] Leflunomide [Arava] 20 mg PO DAILY 09/23/17 [History] Levothyroxine 25 mcg PO ACBREAKFAST 09/23/17 [History] Mineral Oil/Pramoxine/ZnOx [Tucks Hemorrhoidal Oint] 30 gm .XX BID 09/23/17 [ History] Polyethylene Glycol 3350 [MiraLAX] 17 gm PO DAILY 09/23/17 [History] Saccharomyces Boulardii [Florastor] 250 mg PO BID 09/23/17 [History] Tamsulosin [Flomax] 0.4 mg PO DAILY 09/23/17 [History] Past Medical History HEENT History: Reports: Impaired Vision Cardiovascular History: Reports: Hypertension Respiratory History: Reports: COPD Musculoskeletal History: Reports: RA Neurological History: Reports: Neuropathy, Peripheral Endocrine/Metabolic History: Reports: Diabetes, Type II, Hypothyroidism Hematologic History: Reports: Anemia Immunologic History: Reports: Immunosuppression Oncologic (Cancer) History: Reports: Other (See Below) Other Oncologic History: 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 Dermatologic History: Reports: Decubitus Ulcer, Venous Stasis Dermatitis - Past Surgical History GI Surgical History: Reports: Other (See Below) Other GI Surgeries/Procedures: umbilical hernia Social & Family History - Family History Family Medical History: Noncontributory - Tobacco Use Smoking Status *Q: Former Smoker Years of Tobacco use: 60 Packs/Tins Daily: 1.5 Used Tobacco, but Quit: No - Caffeine Use Caffeine Use: Reports: Coffee - Recreational Drug Use Recreational Drug Use: No H&P Review of Systems - Review of Systems: Review Of Systems: See Below General: Denies: Fever, Chills, Malaise, Weakness, Fatigue, Night Sweats HEENT: Denies: Contact Lenses, Dysphasia, Glasses, Headaches Pulmonary: Denies: Shortness of Breath, Wheezing, Pleuritic Chest Pain, Cough, Sputum Cardiovascular: Denies: Chest Pain, Palpitations Gastrointestinal: Reports: Diarrhea. Denies: Abdominal Pain, Nausea, Stool Incontinence Genitourinary: Denies: Dysuria, Frequency Musculoskeletal: Denies: Joint Pain, Joint Swelling Skin: Denies: Pruritis, Rash Psychiatric: Denies: Confusion, Depression Neurological: Denies: Confusion, Dizziness Exam - Exam Exam: See Below - Exam General: Alert, Oriented, 4 HEENT: PERRLA, Hearing Intact, Mucosa Moist & [place], Nares Patent, Normal Nasal Septum, Posterior Pharynx Clear, Conjunctiva Clear, EOMI, EACs Clear, TMs Clear Neck: Supple, Trachea Midline, 2 Lungs: Clear to Auscultation, Normal Respiratory Effort Cardiovascular: Regular Rate, Regular Rhythm GI/Abdominal Exam: Normal Bowel Sounds, Soft, Non-Tender, No Organomegaly, No Distention, No Abnormal Bruit, No Mass, Pelvis Stable Extremities: Normal Inspection, Normal Range of Motion, Non-Tender, No Pedal Edema, Normal Capillary Refill Skin: Warm, Intact, Other (scars on the legs from chornic healed ulcers) *Q Meaningful Use (ADM) - VTE *Q VTE Criteria *Q: - Stroke *Q Stroke Criteria *Q: - AMI *Q AMI Criteria *Q: - Problem List (1) Sepsis due to Enterobacter species SNOMED Code(s): 142464877 ICD Code: A41.59 - OTHER GRAM-NEGATIVE SEPSIS Status: Acute Current Visit : Yes Problem List Initiated/Reviewed/Updated: Yes Orders Last 24hrs: Active Orders 24 hr Category Date Time Status Patient Status [ADT] Routine ADT 09/23/17 16:12 Active Ambulate [RC] PER UNIT ROUTINE Care 09/23/17 16:33 Active Up With Assistance [RC] ASDIRECTED Care 09/23/17 16:12 Active VTE/DVT Education [RC] Per Unit Routine Care 09/23/17 16:12 Active Vital Signs [RC] 20,08 Care 09/23/17 16:12 Active Consult to Occupational Therapy [OT Evaluation and Cons 09/23/17 15:27 Active Treatment] [CONS] Routine PT Evaluation and Treatment [CONS] Routine Cons 09/23/17 15:27 Active Heart Healthy Diet [DIET] Diet 09/23/17 Dinner Ordered CULTURE MRSA SURVEY [RM] Routine Lab 09/23/17 16:30 Received Resuscitation Status Routine Resus Stat 09/23/17 16:12 Ordered Assessment/Plan Comment:: Assessment:Urosepsis with Enterobacter, Diarrhea Plan: Pt is presently on cipro started today. Will continue cipro for 14 days total with probiotics. He has diarrhea, appears more like irritant diarrhea. will keep him on mechanical soft diet. Avoid meat and hard food until diarrhea clears. will try 3 doses of loperamide with each diarrhea times 3 to see, if diarrhea resolves and also Activia yogurt. Also he has had medication changes for his rheumatoid arthritis on plaquenil and leflunomide. Will continue all his home meds. Brennan have Ot and PT eval and followup with recommendations.
[2017-09-23] MEDS ORDERED: Loperamide 1 MG/5 ML ML Solution 120 ML Bottle PO PRN (18:02)
[2017-09-23] MEDS ORDERED: Loperamide 2 MG Cap ONE ×2 (18:10→18:20)
[2017-09-23] MEDS ORDERED: Diclofenac Sodium 1% Gel 100 GM Tube TOP PRN (19:22)
[2017-09-23] MEDS ORDERED: Albuterol/Ipratropium 3.0-0.5 MG/3 ML Neb Soln INH PRN (19:22)
[2017-09-23] MEDS ORDERED: PRAMOXINE SCH (20:00)
[2017-09-23] MEDS ORDERED: Non-Formulary Medication 1 Each (Saccharomyces Boulardii [Florastor] 250 MG) PO SCH (20:00)
[2017-09-23] MEDS ORDERED: ZINC OXIDE SCH (20:00)
[2017-09-23] MEDS ORDERED: traZODone 50 MG Tab PO SCH (20:00)
[2017-09-23] MEDS ORDERED: MINERAL OIL SCH (20:00)
[2017-09-23] MEDS: Gabapentin 300 MG Cap PO SCH (20:22)
[2017-09-23] MEDS: Ciprofloxacin 500 MG Tab PO SCH (20:22)
[2017-09-23] MEDS: Acetaminophen 325 MG Tab PO SCH ×2 (20:23→23:28)
[2017-09-23] MEDS: Acetaminophen/oxyCODONE 325-5 MG Tab PO PRN ×2 (20:23→22:26)
[2017-09-24] MEDS: Acetaminophen 325 MG Tab PO SCH ×2 (06:42→13:38)
[2017-09-24] MEDS ORDERED: Levothyroxine 25 MCG Tab PO SCH (07:00)
[2017-09-24] MEDS ORDERED: Omeprazole 20 MG Cap.CR PO SCH (07:00)
[2017-09-24] MEDS ORDERED: Tamsulosin 0.4 MG Cap.ER PO SCH (08:00)
[2017-09-24] MEDS ORDERED: Diclofenac Sodium 1% Gel 100 GM Tube TOP SCH (08:00)
[2017-09-24] MEDS ORDERED: Polyethylene Glycol 3350 Powder 17 GM Packet PO SCH (08:00)
[2017-09-24] MEDS ORDERED: LEFLUNOMIDE 20 MG PO SCH (08:00)
[2017-09-24] MEDS ORDERED: Clopidogrel 75 MG Tab PO SCH (08:00)
[2017-09-24] MEDS ORDERED: Hydroxychloroquine 200 MG Tab PO SCH (08:00)
[2017-09-24] MEDS ORDERED: predniSONE 20 MG Tab PO SCH (08:00)
[2017-09-24] MEDS ORDERED: Leflunomide 20 MG Tab PO SCH (08:00)
[2017-09-24] MEDS: Gabapentin 300 MG Cap PO SCH ×2 (08:42→13:40)
[2017-09-24] MEDS: Ciprofloxacin 500 MG Tab PO SCH (08:42)
[2017-09-24 09:55] VITALS: BP 127/67
[2017-09-24] MEDS: Acetaminophen/oxyCODONE 325-5 MG Tab PO PRN (10:34)
[2017-09-24] MEDS ORDERED: Loperamide 2 MG Cap PO PRN (10:52)
[2017-09-24] MEDS ORDERED: Lactobacillus Acidophilus/Lactobacillus Sporogenes (Probiotic) Tab PO SCH (12:00)
--- NOTE | 2017-09-24 14:59 | PCM.DCSUM1 ---
Discharge Summary - Hospital Course Free Text/Narrative:: Pt was admitted yesterday for rehab therapy. Apparently he did have OT and PT eval today. OT and PT feels he should be okay to be discharged home as he is at his baseline function and has been able to do his ADLs. Patient did have some irritant diarrhea and one dose of loperamide resolved the loose stools. Pt has been feeling fine today. tolerating his diet well. No concerns from patient. Discharged today, continue home meds. Cipro for another 12 days. Brief History: Pt was admitted yesterday to [facility]. Kindly see H&P for details. - Discharge Data Discharge Date: 09/24/17 Discharge Disposition: Home, Self-Care 01 Condition: Good - Discharge Diagnosis/Problem(s) (1) Sepsis due to Enterobacter species SNOMED Code(s): 433231616 ICD Code: A41.59 - OTHER GRAM-NEGATIVE SEPSIS Status: Acute Current Visit : Yes - Patient Summary/Data Consults: Consultations 09/23/17 15:27 Consult to Occupational Therapy [OT Evaluation and Treatment] [CONS] Routine Please Evaluate and Treat. OT Reason for Consult: Strengthening This query below is only for informational purposes and is not editable. PT Evaluation and Treatment [CONS] Routine Please Evaluate and Treat. PT Reason for Consult: Strengthening This query below is only for informational purposes and is not editable. - Patient Instructions Diet: Heart Healthy Diet Fluid Restriction: 1500 mL Activity: As Tolerated Showering/Bathing: May Shower - Discharge Plan Prescriptions/Med Rec: Acidophilus/Lactobac Spor [Acidolphilus X-Strength] 1 tab PO DAILY@1200 30 Days #30 tablet Ciprofloxacin [Ciprofloxacin HCl] 500 mg PO BID 12 Days #24 tablet Hydroxychloroquine [Plaquenil] 200 mg PO DAILY 30 Days #30 tablet Leflunomide [Arava] 20 mg PO DAILY 30 Days #30 tablet Omeprazole 20 mg PO ACBREAKFAST 30 Days #30 cap.cr Home Medications: Home Meds Acetaminophen 650 mg PO Q8HR 08/03/17 [History] traZODone 50 mg PO BEDTIME 08/03/17 [History] Albuterol/Ipratropium [DuoNeb 3.0-0.5 MG/3 ML] 3 ml INH QID PRN 08/26/17 [ History] fentaNYL [Duragesic] 50 mcg TRDERM Q72H patch 08/26/17 [Rx] oxyCODONE HCl/Acetaminophen [oxyCODONE-Acetaminophen 5-325] 1 - 2 tab PO Q4H PRN 08/26/17 [History] predniSONE [Prednisone] 40 mg PO ASDIRECTED 09/20/17 [History] Leflunomide [Arava] 20 mg PO DAILY 09/23/17 [History] Mineral Oil/Pramoxine/ZnOx [Anusol] 30 gm .XX BID 09/23/17 [History] Polyethylene Glycol 3350 [MiraLAX] 17 gm PO DAILY 09/23/17 [History] Saccharomyces Boulardii [Florastor] 250 mg PO BID 09/23/17 [History] Tamsulosin [Flomax] 0.4 mg PO DAILY 09/23/17 [History] Acetaminophen [Tylenol] 650 mg PO Q8HR tablet 09/24/17 [Rx] Acidophilus/Lactobac Spor [Acidolphilus X-Strength] 1 tab PO DAILY@1200 30 Days #30 tablet 09/24/17 [Rx] Ciprofloxacin [Ciprofloxacin HCl] 500 mg PO BID 12 Days #24 tablet 09/24/17 [Rx] Clopidogrel [Plavix] 75 mg PO DAILY tablet 09/24/17 [Rx] Diclofenac Sodium [Voltaren 1% Gel] 0 gm TOP BID tube 09/24/17 [Rx] Gabapentin [Neurontin] 300 mg PO TID cap 09/24/17 [Rx] Hydroxychloroquine [Plaquenil] 200 mg PO DAILY 30 Days #30 tablet 09/24/17 [Rx] Leflunomide [Arava] 20 mg PO DAILY 30 Days #30 tablet 09/24/17 [Rx] Levothyroxine 25 mcg PO ACBREAKFAST tablet 09/24/17 [Rx] Omeprazole 20 mg PO ACBREAKFAST 30 Days #30 cap.cr 09/24/17 [Rx] Prednisone [IJD: predniSONE] 20 mg PO DAILY tablet 09/24/17 [Rx] Prednisone [IJD: predniSONE] 40 mg PO DAILY tablet 09/24/17 [Rx] fentaNYL [Duragesic] 50 mcg TRDERM Q72H patch 09/24/17 [Rx] - Discharge Summary/Plan Comment DC Time >30 min.: Yes - Review of Systems General: Denies: Fever, Weakness HEENT: Denies: Dysphasia, Sinus Congestion, Sore Throat, Rhinitis, Visual Changes Pulmonary: Denies: Shortness of Breath, Sputum, Hemoptysis Cardiovascular: Denies: Chest Pain, Palpitations, Lightheadedness Gastrointestinal: Denies: Abdominal Pain, Nausea, Vomiting Genitourinary: Denies: Dysuria, Flank Pain Musculoskeletal: Denies: Joint Pain, Joint Swelling Skin: Denies: Cyanosis, Pruritis, Rash Neurological: Denies: Confusion, Dizziness, Headache, Syncope Psychiatric: Denies: Confusion, Depression - Patient Data Vitals - Most Recent: Last Vital Signs Temp 97.8 F 09/24/17 08:00 Pulse 62 09/24/17 08:00 Resp 16 09/24/17 08:00 BP 127/67 09/24/17 08:00 Pulse Ox 98 09/24/17 08:00 Weight - Most Recent: 86.364 kg MATIAS Results - Last 24 hrs: Microbiology 09/23/17 16:30 MRSA Surveillance Culture - Final Nares, Unspecified NO MRSA ISOLATED Med Orders - Current: Current Medications Acetaminophen (Tylenol) 650 mg PO Q8HR [facility] Last Admin: 09/24/17 13:38 Dose: 650 mg Albuterol/Ipratropium (Duoneb 3.0-0.5 Mg/3 Ml) 3 ml INH QID PRN PRN Reason: Shortness of Breath Ciprofloxacin (Ciprofloxacin Hcl) 500 mg PO BID [facility] Stop: 10/06/17 20:01 Last Admin: 09/24/17 08:42 Dose: 500 mg Clopidogrel Bisulfate (Plavix) 75 mg PO DAILY [facility] Last Admin: 09/24/17 08:42 Dose: 75 mg Diclofenac Sodium (Voltaren 1% Gel) 0 gm TOP BID [facility] Last Admin: 09/24/17 08:43 Dose: 1 applic Fentanyl (Duragesic) 50 mcg TRDERM Q72H [facility] Gabapentin (Neurontin) 300 mg PO TID [facility] Last Admin: 09/24/17 13:40 Dose: 300 mg Hydroxychloroquine Sulfate (Plaquenil) 200 mg PO DAILY [facility] Last Admin: 09/24/17 08:42 Dose: 200 mg Lactobacillus Acidophilus (Acidolphilus Extra Strength) 1 tab PO DAILY@1200 [facility] Last Admin: 09/24/17 13:40 Dose: 1 tab Leflunomide (Arava) 20 mg PO DAILY [facility] Last Admin: 09/24/17 12:18 Dose: 20 mg Levothyroxine Sodium (Levothyroxine) 25 mcg PO ACBREAKFAST [facility] Last Admin: 09/24/17 06:43 Dose: 25 mcg Loperamide HCl (Imodium) 2 mg PO ASDIRECTED PRN PRN Reason: DIARRHEA Omeprazole (Omeprazole) 20 mg PO ACBREAKFAST [facility] Last Admin: 09/24/17 06:43 Dose: 20 mg Oxycodone/Acetaminophen (Percocet 325-5 Mg) 1 - 2 tab PO Q4H PRN PRN Reason: Pain Last Admin: 09/24/17 10:34 Dose: 1 tab Polyethylene Glycol (Miralax) 17 gm PO DAILY [facility] Last Admin: 09/24/17 08:42 Dose: 17 gm Prednisone (Prednisone) 40 mg PO DAILY [facility] Stop: 09/26/17 08:01 Last Admin: 09/24/17 08:42 Dose: 40 mg Prednisone (Prednisone) 20 mg PO DAILY [facility] Stop: 10/01/17 08:01 Senna/Docusate Sodium (Senna Plus) 1 tab PO DAILY PRN PRN Reason: Constipation Tamsulosin HCl (Flomax) 0.4 mg PO DAILY [facility] Last Admin: 09/24/17 08:42 Dose: 0.4 mg Trazodone HCl (Trazodone) 50 mg PO BEDTIME [facility] Last Admin: 09/23/17 20:22 Dose: 50 mg Discontinued Medications Diclofenac Sodium (Voltaren 1% Gel) 0 gm TOP BID PRN PRN Reason: Pain Last Admin: 09/23/17 20:24 Dose: 1 applic Loperamide HCl (Imodium) 2 mg PO ASDIRECTED PRN PRN Reason: Diarrhea Last Admin: 09/23/17 19:00 Dose: 2 mg Loperamide HCl (Imodium) Confirm Administered Dose 2 mg .ROUTE .STK-MED ONE Stop: 09/23/17 18:11 Last Admin: 09/23/17 20:05 Dose: Not Given Loperamide HCl (Imodium) Confirm Administered Dose 2 mg .ROUTE .STK-MED ONE Stop: 09/23/17 18:21 Last Admin: 09/23/17 20:05 Dose: Not Given - Exam General: Reports: Alert, Oriented HEENT: Reports: Pupils Equal, Pupils Reactive, EOMI, Mucous Membr. Moist/[place] Neck: Reports: Supple Lungs: Reports: Clear to Auscultation, Normal Respiratory Effort Cardiovascular: Reports: Regular Rate, Regular Rhythm GI/Abdominal Exam: Normal Bowel Sounds, Soft, Non-Tender, No Organomegaly, No Distention, No Abnormal Bruit, No Mass, Pelvis Stable Back Exam: Reports: Normal Inspection, Full Range of Motion Extremities: Normal Inspection, Normal Range of Motion, Non-Tender, No Pedal Edema, Normal Capillary Refill, Other (old skin scars on the legs) *Q Meaningful Use (DIS) - VTE *Q VTE Criteria *Q: - Stroke *Q Stroke Criteria *Q: - AMI *Q AMI Criteria *Q:
[2017-09-24] MEDS ORDERED: Hydrocortisone Acetate 25 MG Supp RECTAL SCH (20:00)
[2017-09-26] MEDS ORDERED: fentaNYL 50 MCG/HR Transdermal Patch TRDERM SCH (08:00)
[2017-09-27] MEDS ORDERED: predniSONE 20 MG Tab PO SCH (08:00)
== END 2017-09-24 17:35 | disposition home or self-care (01) | DRG 947 ==
LOC: LB.MS 14:30 → UNDOADMIN 14:30 → EEVIPCON 14:30 → LB.MS 16:12
PROVIDERS: ADMIT Family Medicine; ATTEND Family Medicine
DX: R53.1 Weakness (principal); A41.59 Other Gram-negative sepsis; R19.7 Diarrhea, unspecified; Z79.2 Long term (current) use of antibiotics; I10 Essential (primary) hypertension; E11.42 Type 2 diabetes mellitus with diabetic polyneuropathy; E03.9 Hypothyroidism, unspecified; M06.9 Rheumatoid arthritis, unspecified; J44.9 Chronic obstructive pulmonary disease, unspecified; H54.7 Unspecified visual loss; Z87.891 Personal history of nicotine dependence; M25.551 Pain in right hip; I87.8 Other specified disorders of veins; Z91.018 Allergy to other foods; Z88.8 Allergy status to other drugs, medicaments and biological substances; Z79.52 Long term (current) use of systemic steroids
CPT/HCPCS: 97110-GP; 97161-GP; 97165-GO; 97530-GP; A9270-GY

== ENCOUNTER 2018-04-08 09:25 | Emergency (ER) | payer MEDICARE, BC ==
--- NOTE | 2018-04-08 10:04 | EDM.PDOC ---
ED HPI GENERAL MEDICAL PROBLEM - General Chief Complaint: Respiratory Problem Stated Complaint: SOB Time Seen by Provider: 04/08/18 09:40 Source of Information: Reports: Patient, Family, RN History Limitations: Reports: No Limitations - History of Present Illness INITIAL COMMENTS - FREE TEXT/NARRATIVE: 73 yr male presents with shortness of breath last night. States small cell lung cancer and was told when he needs home oxygen, he will know. Last night he was short of breath and did use a fan and was able to get somewhat comfortable after awhile. He would like to be evaluated for home oxygen. - Related Data Allergies Allergy/AdvReac Type Severity Reaction Status Date / Time strawberry Allergy Cannot Verified 09/23/17 18:09 Remember lisinopril AdvReac Cannot Verified 09/23/17 18:09 Remember naproxen AdvReac Cannot Verified 09/23/17 18:09 Remember Home Meds: Home Meds Albuterol/Ipratropium [DuoNeb 3.0-0.5 MG/3 ML] 3 ml INH QID PRN 08/26/17 [ History] oxyCODONE HCl/Acetaminophen [oxyCODONE-Acetaminophen 5-325] 1 - 2 tab PO Q4H PRN 08/26/17 [History] predniSONE [Prednisone] 40 mg PO ASDIRECTED 09/20/17 [History] Leflunomide [Arava] 20 mg PO DAILY 09/23/17 [History] Saccharomyces Boulardii [Florastor] 250 mg PO BID 09/23/17 [History] Tamsulosin [Flomax] 0.4 mg PO DAILY 09/23/17 [History] Clopidogrel [Plavix] 75 mg PO DAILY tablet 09/24/17 [Rx] Diclofenac Sodium [Voltaren 1% Gel] 0 gm TOP BID tube 09/24/17 [Rx] Gabapentin [Neurontin] 300 mg PO TID cap 09/24/17 [Rx] Hydroxychloroquine [Plaquenil] 200 mg PO DAILY 30 Days #30 tablet 09/24/17 [Rx] Leflunomide [Arava] 20 mg PO DAILY 30 Days #30 tablet 09/24/17 [Rx] Levothyroxine 25 mcg PO ACBREAKFAST tablet 09/24/17 [Rx] Prednisone [IJD: predniSONE] 40 mg PO DAILY tablet 11/10/17 [Rx] fentaNYL [Duragesic] 50 mcg TRDERM Q72H patch 09/24/17 [Rx] Insulin Aspart [NovoLOG] 10 mg SQ TID 04/08/18 [History] Insulin Degludec [Tresiba Flextouch U-100] 20 units SQ DAILY 04/08/18 [History] Omeprazole 40 mg PO ACBREAKFAST 04/08/18 [History] Past Medical History HEENT History: Reports: Impaired Vision Cardiovascular History: Reports: Hypertension Respiratory History: Reports: COPD Musculoskeletal History: Reports: RA Neurological History: Reports: Neuropathy, Peripheral Endocrine/Metabolic History: Reports: Diabetes, Type II, Hypothyroidism Hematologic History: Reports: Anemia Immunologic History: Reports: Immunosuppression Oncologic (Cancer) History: Reports: Other (See Below) Other Oncologic History: 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 Dermatologic History: Reports: Decubitus Ulcer, Venous Stasis Dermatitis - Infectious Disease History Infectious Disease History: Reports: Extended Spectrum Beta-Lactamase (ESBL) - Past Surgical History GI Surgical History: Reports: Other (See Below) Other GI Surgeries/Procedures: umbilical hernia Social & Family History - Family History Family Medical History: Noncontributory - Caffeine Use Caffeine Use: Reports: Coffee ED ROS GENERAL - Review of Systems Review Of Systems: See Below Constitutional: Reports: Weakness HEENT: Reports: Hearing Loss Respiratory: Reports: Shortness of Breath, Wheezing, Cough. Denies: Pleuritic Chest Pain Cardiovascular: Denies: Chest Pain, Edema GI/Abdominal: Reports: No Symptoms Musculoskeletal: Reports: Other (uses wheelchair and pushes him, ambulate short distance with use of cane or walker, when home) Neurological: Reports: No Symptoms ED EXAM, GENERAL - Physical Exam Exam: See Below Exam Limited By: No Limitations General Appearance: Alert, No Apparent Distress Ears: Hearing Loss Nose: Normal Inspection Throat/Mouth: Normal Inspection, Normal Voice, No Airway Compromise Head: Atraumatic, Normocephalic Neck: Supple, Non-Tender Respiratory/Chest: Lungs Clear, Decreased Breath Sounds, Wheezing (occasional to mid lung, bilaterally, uses nebulizer at home) Cardiovascular: Normal Peripheral Pulses, No Edema GI/Abdominal: Soft, Non-Tender Neurological: Alert, Normal Cognition Psychiatric: Normal Affect, Normal Mood Skin Exam: Warm, Dry, Normal Color Lymphatic: No Adenopathy Course - Vital Signs Last Recorded V/S: Last Vital Signs Temp 98.6 F 05/25/18 09:00 Pulse 102 H 04/08/18 09:00 Resp 20 04/08/18 09:00 BP 139/76 04/08/18 09:00 Pulse Ox 92 L 04/08/18 09:00 - Re-Assessments/Exams Free Text/Narrative Re-Assessment/Exam: 04/09/18 13:22 LE 73 yr male with shortness of breath. SpO2 on room air is 92%. Pt was able to ambulate short distance in the ER with assist of cane and standby assist of nurse. After pt sitting, SpO2 drops to 84-86%. Oxygen per nasal cannula applied at 2lpm and SpO2 increased to 92-95% while sitting. Pt states comfort with oxygen on. Instructed pt and to be seen in clinic today 04-08-18, if possible, for evaluation and to order home oxygen. and pt in agreement with plan. Pt in no acute distress and discharged to care of to make clinic appointment. Departure - Departure Time of Disposition: 11:20 Disposition: Home, Self-Care 01 Condition: Good Clinical Impression: Shortness of breath on exertion, Small cell lung cancer - Discharge Information Referrals: PCP,None [Primary Care Provider] - Forms: ED Department Discharge Care Plan Goals: 11:20To clinic via wheelchair for further evaluation and possibly home oxygen per Arin.
[2018-04-08 11:04] VITALS: BP 139/76
== END 2018-04-08 11:20 | disposition home or self-care (01) ==
LOC: LB.ED 09:25
DX: R06.02 Shortness of breath (principal); C34.90 Malignant neoplasm of unspecified part of unspecified bronchus or lung; I10 Essential (primary) hypertension; E11.9 Type 2 diabetes mellitus without complications; E03.9 Hypothyroidism, unspecified; Z88.6 Allergy status to analgesic agent; Z88.8 Allergy status to other drugs, medicaments and biological substances; Z91.018 Allergy to other foods; Z79.899 Other long term (current) drug therapy; Z79.4 Long term (current) use of insulin
CPT/HCPCS: 99282; 99285

== ENCOUNTER 2018-04-20 12:14 | Inpatient (IN) | payer MEDICARE, BC ==
--- NOTE | 2018-04-20 13:37 | EDM.PDOC ---
ED HPI GENERAL MEDICAL PROBLEM - General Chief Complaint: Chest Pain Stated Complaint: CHEST PAIN Time Seen by Provider: 04/20/18 13:05 Source of Information: Reports: Patient History Limitations: Reports: No Limitations - History of Present Illness INITIAL COMMENTS - FREE TEXT/NARRATIVE: Pt claims he has not been feeling well for past 2 days now. He feels weak and tired. Has been feeling dizzy when he bends forwards and gets up. Also he has been having dull chest pain on and off and pain is over pre-cardium. Happens even at rest. No sweating, incontinence of urine or stool. No loss of consciousness. No cough. No fever or chills. Pt has small cell cancer of lung and gets chemotherapy at [facility]. He just had one few days ago. Onset Date: 04/18/18 Location: Reports: Chest Quality: Reports: Ache Severity: Mild Improves with: Reports: None Worsens with: Reports: None Associated Symptoms: Reports: Chest Pain, Weakness. Denies: Confusion, Cough, Diaphoresis, Fever/Chills, Headaches, Nausea/Vomiting, Rash, Seizure, Shortness of Breath, Syncope - Related Data Allergies Allergy/AdvReac Type Severity Reaction Status Date / Time cephalexin Allergy Cannot Verified 04/20/18 13:42 Remember lisinopril Allergy Edema Verified 04/20/18 13:42 strawberry Allergy Cannot Verified 04/20/18 13:42 Remember naproxen AdvReac Cannot Verified 04/20/18 13:42 Remember Home Meds: Home Meds Albuterol/Ipratropium [DuoNeb 3.0-0.5 MG/3 ML] 3 ml INH QID PRN 08/26/17 [ History] oxyCODONE HCl/Acetaminophen [oxyCODONE-Acetaminophen 5-325] 1 - 2 tab PO Q4H PRN 08/26/17 [History] predniSONE [Prednisone] 40 mg PO DAILY 09/20/17 [History] Tamsulosin [Flomax] 0.4 mg PO DAILY 09/23/17 [History] Clopidogrel [Plavix] 75 mg PO DAILY tablet 09/24/17 [Rx] Gabapentin [Neurontin] 300 mg PO TID cap 09/24/17 [Rx] Hydroxychloroquine [Plaquenil] 200 mg PO DAILY 30 Days #30 tablet 11/10/17 [Rx] Leflunomide [Arava] 20 mg PO DAILY 30 Days #30 tablet 09/24/17 [Rx] Levothyroxine 25 mcg PO ACBREAKFAST tablet 09/24/17 [Rx] fentaNYL [Duragesic] 50 mcg TRDERM Q72H patch 09/24/17 [Rx] Insulin Aspart [NovoLOG] 10 mg SQ TIDMEALS 04/08/18 [History] Insulin Degludec [Tresiba Flextouch U-100] 20 units SQ DAILY@1800 04/08/18 [ History] Omeprazole 20 mg PO BIDMEALS 04/08/18 [History] Dexamethasone 4 mg PO ASDIRECTED 04/20/18 [History] Diclofenac Sodium [Voltaren 1% Gel] 0 gm TOP BID PRN 04/20/18 [History] Furosemide [Lasix] 80 mg PO DAILY 04/20/18 [History] OLANZapine [ZyPREXA] 5 mg PO ASDIRECTED 04/20/18 [History] Ondansetron [Zofran Odt] 8 mg PO TID PRN 04/20/18 [History] Prochlorperazine Maleate [Compazine] 10 mg PO ASDIRECTED PRN 04/20/18 [History] Sennosides/Docusate Sodium [Senna-Docusate Sodium] 1 each PO DAILY PRN 04/20/18 [History] Sulfamethoxazole/Trimethoprim [Sulfamethoxazole-Tmp Ds Tablet] 1 each PO ASDIRECTED 04/20/18 [History] amLODIPine Besylate [Amlodipine Besylate] 10 mg PO DAILY 04/20/18 [History] Past Medical History HEENT History: Reports: Impaired Vision Cardiovascular History: Reports: Hypertension Respiratory History: Reports: COPD Musculoskeletal History: Reports: RA Neurological History: Reports: Neuropathy, Peripheral Endocrine/Metabolic History: Reports: Diabetes, Type II, Hypothyroidism Hematologic History: Reports: Anemia Immunologic History: Reports: Immunosuppression Oncologic (Cancer) History: Reports: Other (See Below) Other Oncologic History: 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 Dermatologic History: Reports: Decubitus Ulcer, Venous Stasis Dermatitis - Infectious Disease History Infectious Disease History: Reports: Extended Spectrum Beta-Lactamase (ESBL) - Past Surgical History GI Surgical History: Reports: Other (See Below) Other GI Surgeries/Procedures: umbilical hernia Social & Family History - Family History Family Medical History: Noncontributory - Caffeine Use Caffeine Use: Reports: Coffee ED ROS GENERAL - Review of Systems Review Of Systems: See Below Constitutional: Reports: Weakness, Fatigue. Denies: Fever, Chills, Night Sweats , Diaphoresis HEENT: Denies: Ear Pain, Rhinitis, Throat Pain Respiratory: Denies: Shortness of Breath, Wheezing, Pleuritic Chest Pain, Cough , Sputum Cardiovascular: Reports: Chest Pain, Lightheadedness GI/Abdominal: Denies: Abdominal Pain, Nausea, Vomiting : Denies: Pain, Urgency Musculoskeletal: Denies: Foot Pain, Joint Pain, Joint Swelling Skin: Denies: Bruising, Pruritis, Rash Neurological: Denies: Confusion, Dizziness, Headache, Numbness, Syncope, Tingling Psychiatric: Denies: Anxiety, Depression ED EXAM, GENERAL - Physical Exam Exam: See Below Exam Limited By: No Limitations General Appearance: Alert, WD/WN, No Apparent Distress Eye Exam: Bilateral Eye: EOMI, PERRL Ears: Normal External Exam, Normal Canal, Hearing Grossly Normal, Normal TMs Ear Exam: Bilateral Ear: Auricle Normal, Canal Normal, TM normal Nose: Normal Inspection, Normal Mucosa, No Blood Throat/Mouth: Normal Inspection, Normal Lips, Normal Teeth, Normal Gums, Normal Oropharynx, Normal Voice, No Airway Compromise Head: Atraumatic, Normocephalic Neck: Normal Inspection, Supple, Non-Tender, Full Range of Motion Respiratory/Chest: No Respiratory Distress, Lungs Clear, Normal Breath Sounds, No Accessory Muscle Use, Chest Non-Tender Cardiovascular: Normal Peripheral Pulses, No Edema, No Gallop, No JVD, No Murmur , No Rub, Tachycardia (heart rate is in 120s) GI/Abdominal: Normal Bowel Sounds, Soft, Non-Tender, No Organomegaly, No Distention, No Abnormal Bruit, No Mass, Pelvis Stable Extremities: Normal Range of Motion, Non-Tender, Other (there is chronic peripheral cyanosis of the leg and also skin scarring from old skin wounds) EKG INTERPRETATION Rhythm: Other (SVT) [place]: Normal P-Wave: Present EKG Interpretation Comments: Pt's EKG shows SVT with rates in 170-180s Course - Vital Signs Text/Narrative:: Pt clinical exam is normal. He has stable blood pressure. He does have SVT on EKG and the veterinarian small animal, which might be the cause of his dizziness and chest pain on and off. He does not appear decompensated at this time but does claims he gets chest pressure and dizzy at times.. Will wait on his lab work. if his Troponin is negative will try Adenosine to bring his rate down. Pt's troponin was negative. Pt was reassured that he does not have any cardiac injury. I did discuss with him the option of adenosine to bring the rate down. Patient did Agree. Hence He did receive Adenosine 6mg IV followed by 10cc NS push. Pt's heart rate did come down into 150s and quickly returned into 180s. But when the heart rate was down, his rhythm appeared like AFIB with RVR with rates in 160s. Repeat EKG confirmed Afib with RVR. At which point I did discuss the finding with patient and spouse. As his ventricular rate is high, he needs to be admitted for IV therapy to get ventricular rate under control and improved cardiac function.Apparently There is no diltiazem available at the hospital due to nationwide low supply. I did contact Dr. Moran, hospital supervisor at [facility] and his advised was to place patient on Lopressor IV protocol. Also I have discussed with patient and family about the risk of stroke asso with Afib and hence I have recommended Anticoagulation with Coumadin. Patient does agree, will place him on coumadin 5mg Daily. Also considering his Lung cancer will get CT angiogram done to make sure he is not having a PE. Will monitor patient in ICU set up and followup with labs and EKG in AM.Pt does understand and agree with plan. Last Recorded V/S: Last Vital Signs Temp Pulse 183 H 04/20/18 14:10 Resp 18 04/20/18 14:10 BP 102/57 L 04/20/18 14:10 Pulse Ox 93 L 04/20/18 14:10 - Orders/Labs/Meds Orders: Active Orders 24 hr Category Date Time Status EKG Documentation Completion [RC] ASDIRECTED Care 04/20/18 13:32 Active Chest 1V Frontal [CR] Stat Exams 04/20/18 13:52 Taken Labs: Laboratory Tests 04/20/18 04/20/18 Range/Units 13:30 13:30 WBC 3.2 L D (4.0-11.0) K/uL RBC 3.19 L (4.50-6.50) M/uL Hgb 11.1 L (13.0-18.0) g/dL Hct 32.9 L (40.0-54.0) % MCV 103 H (76-96) fL MCH 34.8 H (27.0-32.0) pg MCHC 33.7 (31.0-35.0) g/dL RDW 18.3 H (11.0-16.0) % Plt Count 45 L* D (150-400) K/uL MPV 12.9 H (6.0-10.0) fL Neut % (Auto) 88.6 H (45.0-70.0) % Lymph % (Auto) 4.3 L (20.0-40.0) % [place] % (Auto) 6.8 (3.0-10.0) % Eos % (Auto) 0.3 L (1.0-5.0) % Baso % (Auto) 0.0 (0.0-0.5) % Neut # (Auto) 2.87 (2.00-7.50) K/uL Lymph # (Auto) 0.14 L (1.50-4.00) K/uL [place] # (Auto) 0.22 (0.20-0.80) K/uL Eos # (Auto) 0.01 L (0.04-0.40) K/uL Baso # (Auto) 0.00 L (0.02-0.10) K/uL Sodium 139 (136-145) mmol/L Potassium 3.9 (3.5-5.1) mmol/L Chloride 101 (98-107) mmol/L Carbon Dioxide 29.2 (21.0-32.0) mmol/L Anion Gap 12.7 (5.0-15.0) mmol/L BUN 35 H D (8-26) mg/dL Creatinine 1.18 (0.70-1.30) mg/dL Est Cr Clr Drug Dosing TNP Estimated GFR (MDRD) > 60 (>60) MLS/MIN BUN/Creatinine Ratio 29.7 H (6-25) Glucose 231 H (74-100) mg/dL Calcium 8.3 L (8.5-10.1) mg/dL Total Bilirubin 0.9 D (0.0-1.0) mg/dL AST 47 H (15-37) U/L ALT 51 (12-78) U/L Alkaline Phosphatase 261 H (46-116) U/L Troponin I 0.024 (0.000-0.060) ng/mL Total Protein 6.5 (6.4-8.2) g/dL Albumin 2.3 L (3.4-5.0) g/dL Globulin 4.2 (2.2-4.2) g/dL Albumin/Globulin Ratio 0.6 L (0.8-2.0) Departure - Departure Time of Disposition: 15:00 Disposition: Admitted As Inpatient 66 Condition: Fair Clinical Impression: Atrial fibrillation with rapid ventricular response - Discharge Information Referrals: Jeff Rosen MD [Primary Care Provider] - Forms: ED Department Discharge - Problem List & Annotations (1) Atrial fibrillation with rapid ventricular response SNOMED Code(s): 935830402233939 Code(s): I48.91 - UNSPECIFIED ATRIAL FIBRILLATION Status: Acute Current Visit: Yes - Problem List Review Problem List Initiated/Reviewed/Updated: Yes - My Orders Last 24 Hours: My Active Orders 04/20/18 13:32 EKG Documentation Completion [RC] ASDIRECTED 04/20/18 13:52 Chest 1V Frontal [CR] Stat - Assessment/Plan Last 24 Hours: My Active Orders 04/20/18 13:32 EKG Documentation Completion [RC] ASDIRECTED 04/20/18 13:52 Chest 1V Frontal [CR] Stat Assessment:: Atrial Fibrillation with RVR Plan: Pt clinical exam is normal. He has stable blood pressure. He does have SVT on EKG and the veterinarian small animal, which might be the cause of his dizziness and chest pain on and off. He does not appear decompensated at this time but does claims he gets chest pressure and dizzy at times.. Will wait on his lab work. if his Troponin is negative will try Adenosine to bring his rate down. Pt's troponin was negative. Pt was reassured that he does not have any cardiac injury. I did discuss with him the option of adenosine to bring the rate down. Patient did Agree. Hence He did receive Adenosine 6mg IV followed by 10cc NS push. Pt's heart rate did come down into 150s and quickly returned into 180s. But when the heart rate was down, his rhythm appeared like AFIB with RVR with rates in 160s. Repeat EKG confirmed Afib with RVR. At which point I did discuss the finding with patient and spouse. As his ventricular rate is high, he needs to be admitted for IV therapy to get ventricular rate under control and improved cardiac function.Apparently There is no diltiazem available at the hospital due to nationwide low supply. I did contact Dr. Moran, hospital supervisor at [facility] and his advised was to place patient on Lopressor IV protocol. Also I have discussed with patient and family about the risk of stroke asso with Afib and hence I have recommended Anticoagulation with Coumadin. Patient does agree, will place him on coumadin 5mg Daily. Also considering his Lung cancer will get CT angiogram done to make sure he is not having a PE. Will monitor patient in ICU set up and followup with labs and EKG in AM.Pt does understand and agree with plan.
[2018-04-20] MEDS ORDERED: Adenosine 12 MG/4 ML SDV IVPUSH ONE (14:45)
[2018-04-20] MEDS ORDERED: Sodium Chloride 0.9% 10 ML Syringe FLUSH PRN (15:47)
[2018-04-20] MEDS ORDERED: Iopamidol 755 Mg/ML 100 ML Bottle IV PRN (15:57)
[2018-04-20] MEDS ORDERED: Prochlorperazine 10 MG Tab PO PRN (15:59)
[2018-04-20] MEDS ORDERED: Diclofenac Sodium 1% Gel 100 GM Tube TOP PRN (15:59)
[2018-04-20] MEDS ORDERED: Albuterol/Ipratropium 3.0-0.5 MG/3 ML Neb Soln INH PRN (15:59)
[2018-04-20] MEDS ORDERED: Acetaminophen/oxyCODONE 325-5 MG Tab PO PRN (15:59)
[2018-04-20] MEDS ORDERED: fentaNYL 50 MCG/HR Transdermal Patch TRDERM SCH (16:00)
[2018-04-20] MEDS ORDERED: Metoclopramide 10 MG/2 ML SDV IVPUSH SCH (16:00)
[2018-04-20] MEDS ORDERED: Dexamethasone 4 MG Tab PO SCH (16:00)
[2018-04-20] MEDS ORDERED: OLANZapine 5 MG Tab PO SCH (16:00)
[2018-04-20] MEDS ORDERED: Sodium Chloride 0.9% 50 ML SDV FLUSH SCH (16:00)
[2018-04-20] MEDS ORDERED: Ondansetron 4 MG Tab.DIS PO PRN (16:30)
[2018-04-20] MEDS ORDERED: Metoprolol Tartrate 25 MG Tab ONE (16:43)
[2018-04-20] MEDS: Sodium Chloride 0.9% 1,000 ML IV SCH (16:46)
[2018-04-20] MEDS: Metoprolol Tartrate 25 MG Tab PO SCH ×2 (16:47→20:17)
--- NOTE | 2018-04-20 17:06 | CR ---
CLINICAL DATA: Chest pain. AP CHEST, 20 APRIL 2018: Comparison is made to a prior exam dated 20 September 2017. The heart remains enlarged, unchanged. The pulmonary vascular congestion on the prior exam has improved. There is a left subclavian Port-A-Cath in place with its distal tip in the region of the superior vena cava. There is a mass-like density in the right suprahilar region and right apex. This is present on a prior Chest CT dated 06 Apr 2018 and most likely represents a malignancy. There are densities in both lung bases, consistent with basilar atelectasis or infiltrate. There is nodular pleural thickening within the left hemithorax inferiorly and laterally. Pleural metastatic disease should be considered. There are also small nodular densities in both mid and lower lungs, most likely representing pulmonary metastases. No other interval changes from the prior study. [id number] MTDD
[2018-04-20] MEDS ORDERED: Insulin Aspart 100 Units/ML 3 ML Pen SUBCUT SCH (18:00)
[2018-04-20] MEDS ORDERED: Non-Formulary Medication 1 Each (Insulin Degludec [Tresiba Flextouch U-100] 20 UNITS) SQ SCH (18:00)
[2018-04-20] MEDS ORDERED: Warfarin 5 MG Tab PO SCH (18:00)
[2018-04-20] MEDS ORDERED: Sulfamethoxazole/Trimethoprim 800-160 MG Tab ONE (18:21)
[2018-04-20] MEDS ORDERED: Hydroxychloroquine 200 MG Tab ONE (18:21)
[2018-04-20] MEDS ORDERED: amLODIPine 10 MG Tab ONE (18:21)
[2018-04-20] MEDS ORDERED: Gabapentin 300 MG Cap ONE (18:21)
[2018-04-20] MEDS ORDERED: predniSONE 20 MG Tab ONE (18:22)
[2018-04-20] MEDS: Omeprazole 20 MG Cap.CR PO SCH (18:27)
[2018-04-20] MEDS ORDERED: Gabapentin 300 MG Cap PO SCH (20:00)
[2018-04-20] MEDS ORDERED: LORazepam 1 MG Tab ONE (21:08)
[2018-04-21] MEDS ORDERED: Levothyroxine 25 MCG Tab PO SCH (07:00)
[2018-04-21] MEDS ORDERED: amLODIPine 10 MG Tab PO SCH ×2 (08:00→12:00)
[2018-04-21] MEDS ORDERED: Furosemide 40 MG Tab PO SCH (08:00)
[2018-04-21] MEDS ORDERED: Leflunomide 20 MG Tab PO SCH (08:00)
[2018-04-21] MEDS ORDERED: Clopidogrel 75 MG Tab PO SCH (08:00)
[2018-04-21] MEDS ORDERED: Insulin Aspart 100 Units/ML 3 ML Pen SUBCUT SCH ×5 (08:00→12:00)
[2018-04-21] MEDS ORDERED: Metoprolol Tartrate 25 MG Tab PO SCH (08:00)
[2018-04-21] MEDS ORDERED: fentaNYL 50 MCG/HR Transdermal Patch TRDERM SCH (08:00)
[2018-04-21] MEDS ORDERED: PREDNISONE 40 MG PO SCH (08:00)
[2018-04-21] MEDS ORDERED: Gabapentin 300 MG Cap PO SCH (08:00)
[2018-04-21] MEDS ORDERED: predniSONE 20 MG Tab PO SCH (08:00)
[2018-04-21] MEDS ORDERED: Tamsulosin 0.4 MG Cap.ER PO SCH (08:00)
[2018-04-21] MEDS ORDERED: Hydroxychloroquine 200 MG Tab PO SCH ×3 (08:00)
[2018-04-21] MEDS: Omeprazole 20 MG Cap.CR PO SCH (08:01)
--- NOTE | 2018-04-21 08:06 | CT ---
DATE OF SERVICE: 04/20/18 CLINICAL DATA: Afib with lung cancer to r/o PE ENHANCED CHEST CT: Multislice acquisition through the chest with IV contrast was performed. Comparison is made to a prior enhanced chest CT dated 04/06/2018. No evidence of PE. No pneumothorax. No pleural effusions. The large right upper lobe mass is again seen. It does not appear significantly changed from the prior study. There are numerous varying sized pulmonary nodules in both lungs consistent with pulmonary metastatic disease. These do not appear significantly changed from the prior exam. The remainder of the exam is stable from the previous. IMPRESSION: No acute abnormalities. [id number] [facility]
[2018-04-21] MEDS ORDERED: Iopamidol 755 Mg/ML 100 ML Bottle IV PRN (09:00)
[2018-04-21] MEDS: Sodium Chloride 0.9% 1,000 ML IV SCH (10:26)
[2018-04-21 10:28] VITALS: BP 125/79
--- NOTE | 2018-04-21 10:35 | PCM.DCSUM1 ---
Discharge Summary - Hospital Course Free Text/Narrative:: Kindly see H&P for details of Emergency room Course. Pt was admitted with Diagnosis of new onset Atrial fibrillation with rapid ventricular rate. His CBC, CMP were normal , torponin was negative. Pt was started on meotprolol Iv protocol after discussing with Dr. Milan. Also he had CT chest with IV contrast done, which was negative for PE. Pt was admitted to hospital and closely monitored. Pt only received 2 doses of metorpolol IV at 4 and 8:30 pm last evening, but has received his oral metoprolol 25mg BID. His heart rate has been in 150-180/minute and irregular. Today morning patient was hypotensive and his BP systolic was around 90s. His material liaison did show rate in 160s-170s. At night the lowest it was was around 130s. Hence I did bolus patient with 500cc of normal saline bolus and hold his morning dose of amlodipine and lasix. I called Dr. Milan to discuss management as his heart rte has not decreased. his recommendation was to have patient transferred down to [facility] for TROY and possible Cardioversion. For some reason, the heart rates suddenly dropped down into 80-90s and has stayed there.Also his BP is 114/68mmhg. I did call [place] with new heart rate. I was advised to transfer patient down to have cardioversion. I have discussed the plan with patient and his spouse, they do understand and agree with plan. Pt will be transferred to [place] as direct admit under care of the hospitalist. Further care as per Dr. Milan and . HPI Initial Comments: Presented to emergency room with not feeling well and tired for past 2 days. Brief History: Kindly see [facility] for details - Discharge Data Discharge Date: 04/21/18 Discharge Disposition: DC/Tfer to Acute Hospital 02 Condition: Fair - Discharge Diagnosis/Problem(s) (1) Atrial fibrillation with rapid ventricular response SNOMED Code(s): 481938153996354 ICD Code: I48.91 - UNSPECIFIED ATRIAL FIBRILLATION Status: Acute Current Visit: Yes - Patient Instructions Diet: Heart Healthy Diet Fluid Restriction: 1000 mL Activity: As Tolerated - Discharge Plan Home Medications: Home Meds Albuterol/Ipratropium [DuoNeb 3.0-0.5 MG/3 ML] 3 ml INH QID PRN 10/12/17 [ History] oxyCODONE HCl/Acetaminophen [oxyCODONE-Acetaminophen 5-325] 1 - 2 tab PO Q4H PRN 08/26/17 [History] predniSONE [Prednisone] 40 mg PO DAILY 09/20/17 [History] Tamsulosin [Flomax] 0.4 mg PO DAILY 09/23/17 [History] Clopidogrel [Plavix] 75 mg PO DAILY tablet 09/24/17 [Rx] Gabapentin [Neurontin] 300 mg PO TID cap 09/24/17 [Rx] Hydroxychloroquine [Plaquenil] 200 mg PO DAILY 30 Days #30 tablet 09/24/17 [Rx] Leflunomide [Arava] 20 mg PO DAILY 30 Days #30 tablet 09/24/17 [Rx] Levothyroxine 25 mcg PO ACBREAKFAST tablet 09/24/17 [Rx] fentaNYL [Duragesic] 50 mcg TRDERM Q72H patch 09/24/17 [Rx] Insulin Aspart [NovoLOG] 10 mg SQ TIDMEALS 04/08/18 [History] Insulin Degludec [Tresiba Flextouch U-100] 20 units SQ DAILY@1800 04/08/18 [ History] Omeprazole 20 mg PO BIDMEALS 04/08/18 [History] Dexamethasone 4 mg PO ASDIRECTED 04/20/18 [History] Diclofenac Sodium [Voltaren 1% Gel] 0 gm TOP BID PRN 04/20/18 [History] OLANZapine [ZyPREXA] 5 mg PO ASDIRECTED PRN 04/20/18 [History] Ondansetron [Zofran Odt] 8 mg PO TID PRN 04/20/18 [History] Prochlorperazine Maleate [Compazine] 10 mg PO ASDIRECTED PRN 04/20/18 [History] Sennosides/Docusate Sodium [Senna-Docusate Sodium] 1 each PO DAILY PRN 04/20/18 [History] Sulfamethoxazole/Trimethoprim [Sulfamethoxazole-Tmp Ds Tablet] 1 each PO ASDIRECTED 04/20/18 [History] Hydroxychloroquine [Plaquenil] 200 mg PO 0800,1400 tablet 04/21/18 [Rx] Insulin Aspart [NovoLOG] 0 unit SUBCUT 0800,1200,1700 pen 04/21/18 [Rx] Insulin Aspart [NovoLOG] 9 unit SUBCUT DAILY pen 04/21/18 [Rx] Iopamidol [Isovue-370 (76%)] 100 ml IV ASDIRECTED PRN bottle 04/21/18 [Rx] Metoprolol Tartrate [Lopressor] 25 mg PO 0800,1400 tablet 04/21/18 [Rx] Warfarin [Coumadin] 5 mg PO DAILY@1800 tablet 04/21/18 [Rx] Patient Handouts: Metoprolol tablets, What You Need to Know About Warfarin, Atrial Fibrillation Forms: ED Department Discharge Referrals: Jeff Rosen MD [Primary Care Provider] - - Discharge Summary/Plan Comment DC Time >30 min.: Yes Discharge Summary/Plan Comment: Pt transferred to [facility] under care of / Dr. Milan, by [facility] ambulance service. - General Info Date of Service: 04/21/18 Subjective Update: Pt claims he feel fine, weakness has improved. No chest pain or shortness of breath. tolerating oral diet. Functional Status: Reports: Pain Controlled, Tolerating Diet, Ambulating, Urinating - Review of Systems General: Reports: Weakness. Denies: Fever, Fatigue HEENT: Denies: Sinus Congestion, Sore Throat Pulmonary: Denies: Shortness of Breath, Pleuritic Chest Pain, Sputum, Hemoptysis Cardiovascular: Denies: Chest Pain, Lightheadedness Gastrointestinal: Denies: Abdominal Pain, Nausea, Vomiting Genitourinary: Denies: Dysuria, Frequency Musculoskeletal: Denies: Joint Pain, Joint Swelling Skin: Reports: Bruising. Denies: Pruritis, Rash Neurological: Denies: Confusion, Dizziness, Headache, Numbness, Tingling - Patient Data Vitals - Most Recent: Last Vital Signs Temp 98.1 F 04/21/18 10:00 Pulse 88 04/21/18 10:00 Resp 20 04/21/18 10:00 BP 98/59 L 04/21/18 10:00 Pulse Ox 91 L 04/21/18 10:00 Weight - Most Recent: 74.571 kg I&O - Last 24 hours: Intake & Output 04/20/18 04/21/18 04/21/18 22:59 06:59 14:59 Intake Total 995 Output Total 300 Balance 695 Lab Results - Last 24 hrs: Laboratory Results - last 24 hr 04/20/18 04/20/18 04/20/18 Range/Units 13:30 13:30 13:30 WBC 3.2 L D (4.0-11.0) K/uL RBC 3.19 L (4.50-6.50) M/uL Hgb 11.1 L (13.0-18.0) g/dL Hct 32.9 L (40.0-54.0) % MCV 103 H (76-96) fL MCH 34.8 H (27.0-32.0) pg MCHC 33.7 (31.0-35.0) g/dL RDW 18.3 H (11.0-16.0) % Plt Count 45 L* D (150-400) K/uL MPV 12.9 H (6.0-10.0) fL Neut % (Auto) 88.6 H (45.0-70.0) % Lymph % (Auto) 4.3 L (20.0-40.0) % Floyd % (Auto) 6.8 (3.0-10.0) % Eos % (Auto) 0.3 L (1.0-5.0) % Baso % (Auto) 0.0 (0.0-0.5) % Neut # (Auto) 2.87 (2.00-7.50) K/uL Lymph # (Auto) 0.14 L (1.50-4.00) K/uL Floyd # (Auto) 0.22 (0.20-0.80) K/uL Eos # (Auto) 0.01 L (0.04-0.40) K/uL Baso # (Auto) 0.00 L (0.02-0.10) K/uL PT 10.3 D (9.0-11.5) sec INR 1.0 D (1.0-3.5) Sodium 139 (136-145) mmol/L Potassium 3.9 (3.5-5.1) mmol/L Chloride 101 (98-107) mmol/L Carbon Dioxide 29.2 (21.0-32.0) mmol/L Anion Gap 12.7 (5.0-15.0) mmol/L BUN 35 H D (8-26) mg/dL Creatinine 1.18 (0.70-1.30) mg/dL Est Cr Clr Drug Dosing TNP Estimated GFR (MDRD) > 60 (>60) MLS/MIN BUN/Creatinine Ratio 29.7 H (6-25) Glucose 231 H (74-100) mg/dL POC Glucose (74-110) mg/dL Calcium 8.3 L (8.5-10.1) mg/dL Total Bilirubin 0.9 D (0.0-1.0) mg/dL AST 47 H (15-37) U/L ALT 51 (12-78) U/L Alkaline Phosphatase 261 H (46-116) U/L Troponin I 0.024 (0.000-0.060) ng/mL Total Protein 6.5 (6.4-8.2) g/dL Albumin 2.3 L (3.4-5.0) g/dL Globulin 4.2 (2.2-4.2) g/dL Albumin/Globulin Ratio 0.6 L (0.8-2.0) 04/20/18 04/20/18 04/21/18 Range/Units 14:21 16:59 07:27 WBC (4.0-11.0) K/uL RBC (4.50-6.50) M/uL Hgb (13.0-18.0) g/dL Hct (40.0-54.0) % MCV (76-96) fL MCH (27.0-32.0) pg MCHC (31.0-35.0) g/dL RDW (11.0-16.0) % Plt Count (150-400) K/uL MPV (6.0-10.0) fL Neut % (Auto) (45.0-70.0) % Lymph % (Auto) (20.0-40.0) % [place] % (Auto) (3.0-10.0) % Eos % (Auto) (1.0-5.0) % Baso % (Auto) (0.0-0.5) % Neut # (Auto) (2.00-7.50) K/uL Lymph # (Auto) (1.50-4.00) K/uL Floyd # (Auto) (0.20-0.80) K/uL Eos # (Auto) (0.04-0.40) K/uL Baso # (Auto) (0.02-0.10) K/uL PT (9.0-11.5) sec INR (1.0-3.5) Sodium (136-145) mmol/L Potassium (3.5-5.1) mmol/L Chloride (98-107) mmol/L Carbon Dioxide (21.0-32.0) mmol/L Anion Gap (5.0-15.0) mmol/L BUN (8-26) mg/dL Creatinine (0.70-1.30) mg/dL Est Cr Clr Drug Dosing Estimated GFR (MDRD) (>60) MLS/MIN BUN/Creatinine Ratio (6-25) Glucose (74-100) mg/dL POC Glucose 272 H 221 H 142 H (74-110) mg/dL Calcium (8.5-10.1) mg/dL Total Bilirubin (0.0-1.0) mg/dL AST (15-37) U/L ALT (12-78) U/L Alkaline Phosphatase (46-116) U/L Troponin I (0.000-0.060) ng/mL Total Protein (6.4-8.2) g/dL Albumin (3.4-5.0) g/dL Globulin (2.2-4.2) g/dL Albumin/Globulin Ratio (0.8-2.0) Med Orders - Current: Current Medications Albuterol/Ipratropium (Duoneb 3.0-0.5 Mg/3 Ml) 3 ml INH QID PRN PRN Reason: Shortness of Breath Last Admin: 04/20/18 20:35 Dose: 3 ml Amlodipine Besylate (Norvasc) 10 mg PO DAILY@1200 [facility] Clopidogrel Bisulfate (Plavix) 75 mg PO DAILY [facility] Last Admin: 04/21/18 08:02 Dose: 75 mg Dexamethasone (Dexamethasone) 4 mg PO ASDIRECTED [facility] Diclofenac Sodium (Voltaren 1% Gel) 1 gm TOP BID PRN PRN Reason: Pain Fentanyl (Duragesic) 50 mcg TRDERM Q72H [facility] Last Admin: 04/21/18 07:56 Dose: 50 mcg Furosemide (Lasix) 80 mg PO DAILY [facility] Last Admin: 04/21/18 07:59 Dose: Not Given Gabapentin (Neurontin) 600 mg PO DAILY@1400 [facility] Gabapentin (Neurontin) 300 mg PO DAILY [facility] Last Admin: 04/21/18 07:58 Dose: 300 mg Hydroxychloroquine Sulfate (Plaquenil) 200 mg PO 0800,1400 [facility] Last Admin: 04/21/18 07:58 Dose: 200 mg Sodium Chloride (Normal Saline) 1,000 mls @ 30 mls/hr IV ASDIRECTED [facility] Last Admin: 04/20/18 16:46 Dose: 30 mls/hr Metoprolol Tartrate 10 mg/ (Sodium Chloride) 60 mls @ 100 mls/hr IV Q4H [facility] Last Admin: 04/21/18 09:39 Dose: Not Given Insulin Aspart (Novolog) 9 unit SUBCUT DAILY [facility] Last Admin: 04/21/18 08:01 Dose: 9 unit Insulin Aspart (Novolog) 12 unit SUBCUT 1200,1700 AZUL Insulin Aspart (Novolog) 0 unit SUBCUT 0800,1200,1700 [facility]; Protocol Last Admin: 04/21/18 08:00 Dose: Not Given Iopamidol (Isovue-370 (76%)) 100 ml IV ASDIRECTED PRN PRN Reason: RADIOLOGY EXAM Stop: 04/21/18 23:59 Leflunomide (Arava) 20 mg PO DAILY [facility] Last Admin: 04/21/18 07:59 Dose: 20 mg Levothyroxine Sodium (Levothyroxine) 25 mcg PO ACBREAKFAST [facility] Last Admin: 04/21/18 07:56 Dose: 25 mcg Metoprolol Tartrate (Lopressor) 25 mg PO 0800,1400 [facility] Last Admin: 04/21/18 08:00 Dose: 25 mg Non-Formulary Medication (Insulin Degludec [Tresiba Flextouch U-100]) 20 units SQ DAILY@1800 [facility] Last Admin: 04/20/18 18:28 Dose: 20 units Olanzapine (Zyprexa) 5 mg PO ASDIRECTED [facility] Omeprazole (Omeprazole) 20 mg PO BIDMEALS [facility] Last Admin: 04/21/18 08:01 Dose: 20 mg Ondansetron HCl (Zofran Odt) 8 mg PO TID PRN PRN Reason: VOMITING Oxycodone/Acetaminophen (Percocet 325-5 Mg) 1 - 2 tab PO Q4H PRN PRN Reason: Pain Last Admin: 04/20/18 21:00 Dose: 2 tab Prednisone (Prednisone) 20 mg PO BID@0800,1400 [facility] Last Admin: 04/21/18 07:57 Dose: 20 mg Prochlorperazine Maleate (Compazine) 10 mg PO ASDIRECTED PRN PRN Reason: Vomiting Senna/Docusate Sodium (Senna Plus) 1 tab PO DAILY PRN PRN Reason: Constipation Sodium Chloride (Saline Flush) 10 ml FLUSH ASDIRECTED PRN PRN Reason: Keep Vein Open Sodium Chloride (Normal Saline) 100 ml FLUSH ONETIME [facility] Last Admin: 04/20/18 16:27 Dose: 100 ml Tamsulosin HCl (Flomax) 0.4 mg PO DAILY [facility] Last Admin: 04/21/18 07:59 Dose: 0.4 mg Trimethoprim/Sulfamethoxazole (Septra Ds) 0.5 tab PO MOWEFR@0800,1400 [facility] Warfarin Sodium (Coumadin) 5 mg PO DAILY@1800 [facility] Last Admin: 04/20/18 18:28 Dose: 5 mg Discontinued Medications Adenosine (Adenocard) 6 mg IVPUSH NOW ONE Stop: 04/20/18 14:46 Last Admin: 04/20/18 14:25 Dose: 6 mg Amlodipine Besylate (Norvasc) 10 mg PO DAILY [facility] Amlodipine Besylate (Norvasc) Confirm Administered Dose 10 mg .ROUTE .STK-MED ONE Stop: 04/20/18 18:22 Last Admin: 04/20/18 18:29 Dose: Not Given Fentanyl (Duragesic) 50 mcg TRDERM Q72H [facility] Last Admin: 04/20/18 18:27 Dose: Not Given Gabapentin (Neurontin) 300 mg PO TID [facility] Last Admin: 04/20/18 18:37 Dose: 600 mg Gabapentin (Neurontin) Confirm Administered Dose 300 mg .ROUTE .STK-MED ONE Stop: 04/20/18 18:22 Last Admin: 04/20/18 18:29 Dose: Not Given Hydroxychloroquine Sulfate (Plaquenil) 200 mg PO DAILY [facility] Last Admin: 04/20/18 18:32 Dose: 200 mg Hydroxychloroquine Sulfate (Plaquenil) Confirm Administered Dose 200 mg .ROUTE .STK-MED ONE Stop: 04/20/18 18:22 Last Admin: 04/20/18 18:29 Dose: Not Given Hydroxychloroquine Sulfate (Plaquenil) 200 mg PO BID [facility] Insulin Aspart (Novolog) unit SUBCUT TIDMEALS [facility] Insulin Aspart (Novolog) 12 unit SUBCUT BIDMEALS [facility] Insulin Aspart (Novolog) 0 unit SUBCUT TIDMEALS [facility]; Protocol Iopamidol (Isovue-370 (76%)) 100 ml IV . DIRECTED PRN PRN Reason: RADIOLOGY EXAM Stop: 04/21/18 15:58 Last Admin: 04/20/18 16:28 Dose: 100 ml Lorazepam (Ativan) Confirm Administered Dose 1 mg .ROUTE .STK-MED ONE Stop: 04/20/18 21:09 Last Admin: 04/20/18 21:10 Dose: 1 mg Metoprolol Tartrate (Lopressor) 25 mg PO Q12HR [facility] Last Admin: 04/20/18 20:17 Dose: Not Given Metoprolol Tartrate (Lopressor) Confirm Administered Dose 25 mg .ROUTE .STK-MED ONE Stop: 04/20/18 16:44 Last Admin: 04/20/18 16:56 Dose: Not Given Non-Formulary Medication (Prednisone [Prednisone]) 40 mg PO DAILY [facility] Last Admin: 04/20/18 18:34 Dose: 20 mg Prednisone (Prednisone) Confirm Administered Dose 20 mg .ROUTE .STK-MED ONE Stop: 04/20/18 18:23 Last Admin: 04/20/18 18:29 Dose: Not Given Trimethoprim/Sulfamethoxazole (Septra Ds) 1 tab PO MoWeFr@0900 [facility] Last Admin: 04/20/18 18:35 Dose: 0.5 tab Trimethoprim/Sulfamethoxazole (Septra Ds) Confirm Administered Dose 1 tab .ROUTE .STK-MED ONE Stop: 04/20/18 18:22 Last Admin: 04/20/18 18:29 Dose: Not Given - Exam General: Reports: Alert, Oriented HEENT: Reports: Pupils Equal, Pupils Reactive, EOMI, Mucous Membr. Moist/[place]: Reports: Supple Lungs: Reports: Clear to Auscultation, Normal Respiratory Effort, Other (old skin bruising over the left infraclavicular region from recent protacath placement) Cardiovascular: Reports: Irregular Rhythm. Denies: Murmurs, Gallops GI/Abdominal Exam: Normal Bowel Sounds, Soft, Non-Tender, No Distention Extremities: Normal Range of Motion, Non-Tender, Pedal Edema, Mottled (there is prupilish dicolration of both legs from chronic venous insufficiency and also from scarring fro chronic skin wounds.) Skin: Reports: Warm, Intact EKG INTERPRETATION EKG Date: 04/21/18 Rhythm: Other (A-fib rate controlled) [place]: Normal
[2018-04-21] MEDS ORDERED: Gabapentin 600 MG Tab PO SCH (14:00)
[2018-04-22] MEDS ORDERED: Sulfamethoxazole/Trimethoprim 800-160 MG Tab PO SCH ×2 (08:00→09:00)
== END 2018-04-21 10:49 | DRG 309 ==
LOC: LB.ED 12:14 → UNDOADMIN 15:20 → LB.MS 15:20
PROVIDERS: ADMIT Family Medicine; ATTEND Family Medicine
DX: I48.91 Unspecified atrial fibrillation (principal); C34.91 Malignant neoplasm of unspecified part of right bronchus or lung; Z88.8 Allergy status to other drugs, medicaments and biological substances; Z79.899 Other long term (current) drug therapy; Z79.4 Long term (current) use of insulin; I10 Essential (primary) hypertension; J44.9 Chronic obstructive pulmonary disease, unspecified; M06.9 Rheumatoid arthritis, unspecified; E11.42 Type 2 diabetes mellitus with diabetic polyneuropathy; E03.9 Hypothyroidism, unspecified
CPT/HCPCS: 36415; 71045; 71260; 80053; 82962; 84484; 85025; 85610; 93005; 96374; 99285-25; A0425; A0429; A9270-GY; J0153; J3490; J7030; J7050; J7620; Q9967